=== PATIENT | male | born 1935 | race Caucasian/White ===

== ENCOUNTER 2019-11-17 04:07 | Inpatient (IN) | payer MEDICARE ==
[~2019-11-17] VITALS: Ht 190 cm; Wt 78.2 kg
[2019-11-17] VITALS (8 sets, daily range): BP systolic 170–195; BP diastolic 75–101
--- NOTE | 2019-11-17 05:00 | NUR ---
PT ARRIVED TO ICU 3. PT PUT ON MONITORS. DR DOBBINS NOTIFIED OF PT ARRIVAL. SEE ORDER HX
[2019-11-17] MEDS: NS IV 1000 ML 1,000 ML IV SCH ×2 (07:35→20:22)
--- NOTE | 2019-11-17 07:44 | NUR ---
DR RUIZ NOTIFIED OF CONSULT
--- NOTE | 2019-11-17 08:40 | Consultation-Cardiology ---
HPI-Cardiology Cardiology Consultation Date of Consultation 11/17/19 Date of Admission Time Seen by Provider: 08:36 Indication: Chest pain HPI 84 years old gentleman with history of paroxysmal atrial fibrillation, has been on sotalol at least since 2014. Has been having recurrent episodes of chest pain for the past 3-4 months, seen in the [facility] emergency room for at least 3 times, hospitalized once and monitored. No stress test or cardiac catheter was done. This time started to have more persistent chest pain. Seen in the emergency room and admitted. Feeling better at this time. had palpitation was in atrial fibrillation with rapid ventricular response. No syncope or near syncopal episodes Home Medications & Allergies Allergies: Coded Allergies: promethazine (Verified Allergy, Unknown, 11/17/19) Home Medication List Reviewed: Yes LDK-Iaajso-Syicch Hx Patient Social History Marital Status: Employed/Student: retired Recent Foreign Travel: No Recent Infectious Disease Expo: No Immunizations Up To Date Date of Influenza Vaccine: Jun 06, 2019 Past Medical History Discussed below Family Medical History Family Medical Hx Non contributory Review of Systems-General Review of Systems Constitutional: no symptoms reported, see HPI EENTM: see HPI, no symptoms reported Respiratory: no symptoms reported, see HPI Cardiovascular: see HPI, chest pain; No edema, No Hx of Intervention, No palpitations, No syncope, No vascular heart diseas, No other Gastrointestinal: no symptoms reported, see HPI Genitourinary: no symptoms reported, see HPI Musculoskeletal: no symptoms reported, see HPI Skin: no symptoms reported, see HPI Psychiatric/Neurological: No Symptoms Reported, See HPI Reviewed Test Results Reviewed Test Results Lab Laboratory Tests Test 11/17/19 06:40 Range/Units Troponin I 0.086 H <0.028 NG/ML Physical Exam Physical Exam Vital Signs Vital Signs - First Documented 11/17/19 11/17/19 04:50 05:02 Temp 36.0 Pulse 95 Resp 18 B/P (MAP) 183/101 (128) Pulse Ox 97 O2 Delivery Room Air Capillary Refill : Height, Weight, BMI Height: '" Weight: lbs. oz. kg; 21.46 BMI Method: General Appearance: No Apparent Distress, WD/WN Eyes: Bilateral Eye Normal Inspection, Bilateral Eye PERRL, Bilateral Eye EOMI HEENT: PERRL/EOMI, TMs Normal, Normal ENT Inspection, Pharynx Normal, Moist Mucous Membranes Neck: Full Range of Motion, Normal Inspection, Non Tender, Supple, Carotid Bruit Respiratory: Chest Non Tender, Normal Breath Sounds, No Accessory Muscle Use, No Respiratory Distress Cardiovascular: Regular Rate, Rhythm, No Edema, No Gallop, No JVD, No Murmur, Normal Peripheral Pulses, Gallop/S3 Gastrointestinal: Normal Bowel Sounds, No Organomegaly, No Pulsatile Mass, Non Tender, Soft Back: Normal Inspection, No CVA Tenderness, No Vertebral Tenderness Extremity: Normal Capillary Refill, Normal Inspection, Normal Range of Motion, Non Tender, No Calf Tenderness, No Pedal Edema Neurologic/Psychiatric: Alert, Oriented x3, No Motor/Sensory Deficits, Normal Mood/Affect Skin: Normal Color, Warm/Dry Lymphatic: No Adenopathy A/P-Cardiology Admission Diagnosis unstable angina Hypertension Paroxysmal atrial fibrillation Hyperlipidemia Assessment/Plan Unstable angina, mild elevation in troponin, patient is admitted and monitored, discussed management plan I'm planning to proceed with cardiac catheterization after holding metformin. Will consider the procedure tomorrow Paroxysmal atrial fibrillation maintained on sotalol, continue to monitor QT interval, currently back to sinus rhythm. Hypertension, poor control, restart sotalol and adjust his medication to achieve adequate blood pressure control Hyperlipidemia, monitor lipids Hypothyroidism Diabetes mellitus, hold metformin LUIS ALFREDO RUIZ MD Nov 17, 2019 08:40
[2019-11-17] MEDS ORDERED: FERR325T18 PO (09:04)
[2019-11-17] MEDS ORDERED: DIGO125T3 PO (09:04)
[2019-11-17] MEDS ORDERED: LEVO100T7 PO (09:04)
[2019-11-17] MEDS ORDERED: METF-399 PO (09:04)
[2019-11-17] MEDS ORDERED: LISI10TA2 PO (09:04)
[2019-11-17] MEDS ORDERED: POTA10TA36 PO (09:04)
[2019-11-17] MEDS ORDERED: OMEP20CA18 PO (09:04)
[2019-11-17] MEDS ORDERED: APIX2.5T PO (09:04)
[2019-11-17] MEDS ORDERED: MAGN400T39 PO (09:04)
[2019-11-17] MEDS ORDERED: ALEN70TA2 PO (09:04)
[2019-11-17] MEDS ORDERED: CALC-83 PO (09:04)
[2019-11-17] MEDS ORDERED: SOTA80TA62 PO (09:04)
[2019-11-17] MEDS: SOTALOL 80 MG (BETAPACE) TAB PO SCH ×2 (09:57→20:26)
[2019-11-17] MEDS: ASPIRIN E.C. 81 MG (ECOTRIN) TAB PO SCH (09:57)
[2019-11-17] MEDS ORDERED: LEVO125T6 PO (10:00)
[2019-11-17] MEDS ORDERED: LISI-552 PO (10:02)
--- NOTE | 2019-11-17 10:03 | NUR ---
SPOKE WITH THE PT AND HIS FAMILY (THE DAUGHTER HAD A MED LIST ON HER PHONE) AND CALLED [facility] AND [facility] TO COMPLETE THE MED REC. PT IS A RESIDENT OF [facility] IN [place] BUT HE IS IN THE ASSISTED FACILITY AND TAKES CARE OF HIS OWN MEDS. THE FOLLOWING ARE FILL DATES: 07-13-2019 DIGOXIN 125MCG #90/90DS 09-05-2019 OMEPRAZOLE 20MG #180/90DS 09-07-2019 ELIQUIS 5MG #180/90DS 09-18-2019 SOTALOL 80MG #180/90DS 10-02-2019 FOSAMAX 70MG #12/84DS 10-02-2019 METFORMIN 1000MG #90/90DS 10-17-2019 POTASSIUM 20MEQ #60/30DS 11-13-2019 LISINOPRIL 20MG #45/90DS 11-13-2019 LEVOTHYROXINE 125MCG #30/30DS OTC MEDS: IRON MAGNESIUM CALCIUM W/ VIT D
[2019-11-17] MEDS ORDERED: APIX5TAB PO (10:09)
[2019-11-17] MEDS ORDERED: NON-FORMULARY MEDICATION 1 EA EA (Alendronate Sodium (Fosamax) 70 MG) PO SCH (10:30)
[2019-11-17] MEDS ORDERED: ENOXAPARIN 40 MG/0.4 ML (LOVENOX) SYR SC ONE (10:45)
[2019-11-17] MEDS ORDERED: ONDANSETRON 4 MG (ZOFRAN) ORAL DISSOLVE TAB PO PRN (10:45)
[2019-11-17] MEDS ORDERED: MELATONIN 3 MG TABLET PO PRN (10:45)
[2019-11-17] MEDS ORDERED: polyethylene glycoL POWDER 17 GM (MIRALAX) PACK PO PRN (10:45)
[2019-11-17] MEDS ORDERED: BISACODYL 10 MG SUPP (DULCOLAX) PR PRN (10:45)
[2019-11-17] MEDS ORDERED: ONDANSETRON 4 MG/2 ML (SDV) Z0FRAN IV PRN (10:45)
--- NOTE | 2019-11-17 10:46 | History & Physical-Hospitalist ---
History of Present Illness HPI/Chief Complaint Clinton Guzmán is an 84-year-old male with past medical history of hypertension, hyperlipidemia, type II diabetes mellitus, hypothyroidism, GERD, osteoporosis, atrial fibrillation, who presented with chest pain. He reports that he has been having chest pain on and off for about a year. He reports that is is a pressure across his chest that feels like "bricks". He says that it is a dull pain. He denies any radiation of the pain to his neck, jaw, or arm. He denies any associated nausea or vomiting. He denies any associated diaphoresis. He denies any shortness of breath. He is currently chest pain-free. He denies any fevers or chills. He denies any cough. He denies any abdominal pain. He denies any diarrhea. He denies any rash. Source: patient Exam Limitations: no limitations Date Seen 11/17/19 Time Seen by a Provider: 09:25 Attending Physician Sherry Givens MD PCP Tutu Reese DO Referring Physician Date of Admission Nov 17, 2019 at 04:44 Home Medications & Allergies Home Medications Reviewed patient Home Medication Reconciliation performed by pharmacy medication reconciliations switch technician and/or nursing. Patients Allergies have been reviewed. Allergies Allergies Coded Allergies promethazine (Verified Allergy, Unknown, 11/17/19) Past Hvfhfqc-Lettvt-Vexxns Hx Past Med/Social Hx: Reviewed Nursing Past Med/Soc Hx Patient Social History Marrital Status: Employed/Student: retired Recent Foreign Travel: No Contact w/other who traveled: No Recent Infectious Disease Expo: No Immunizations Up To Date Date of Influenza Vaccine: Jun 06, 2019 Review of Systems Constitutional: no symptoms reported EENTM: no symptoms reported Respiratory: no symptoms reported Cardiovascular: chest pain Gastrointestinal: no symptoms reported Genitourinary: no symptoms reported Musculoskeletal: no symptoms reported Skin: no symptoms reported Psychiatric/Neurological: No Symptoms Reported Physical Exam Physical Exam Vital Signs Vital Signs - First Documented 11/17/19 11/17/19 04:50 05:02 Temp 36.0 Pulse 95 Resp 18 B/P (MAP) 183/101 (128) Pulse Ox 97 O2 Delivery Room Air Capillary Refill : Height, Weight, BMI Height: '" Weight: lbs. oz. kg; 21.46 BMI Method: General Appearance: No Apparent Distress, Chronically ill, Thin HEENT: PERRL/EOMI, Pharynx Normal Respiratory: Lungs Clear, Normal Breath Sounds, No Respiratory Distress Cardiovascular: Regular Rate, Rhythm, No Edema, No Murmur Gastrointestinal: Normal Bowel Sounds, Non Tender, Soft Extremity: Normal Inspection, Non Tender, No Pedal Edema Neurologic/Psychiatric: Alert, Oriented x3, No Motor/Sensory Deficits, Normal Mood/Affect Skin: Normal Color, Warm/Dry Results Results/Procedures Labs Patient resulted labs reviewed. Imaging: Reviewed Imaging Report Assessment/Plan Admission Diagnosis unstable angina Admission Status: Inpatient Order (span 2 midnights) Reason for Inpatient Admission: chest pain requiring further evaluation Assessment and Plan Unstable angina atrial fibrillation with rapid ventricular response troponin elevated Cardiology consulted, appreciate assistance likely left heart catheterization tomorrow Continue sotalol and digoxin Holding Eliquis echo ordered Continue aspirin type II diabetes mellitus Accu-Cheks before meals and at bedtime Hold metformin Sliding scale insulin Hyperlipidemia Continue statin Hypothyroidism Continue levothyroxine GERD Continue PPI DVT prophylaxis: Lovenox while Eliquis held Diagnosis/Problems Diagnosis/Problems (1) Unstable angina Status: Acute (2) Atrial fibrillation with rapid ventricular response Status: Acute (3) HTN (hypertension) Status: Chronic (4) HLD (hyperlipidemia) Status: Chronic (5) T2DM (type 2 diabetes mellitus) Status: Chronic (6) GERD (gastroesophageal reflux disease) Status: Chronic (7) Hypothyroidism Status: Chronic (8) Osteoporosis Status: Chronic (9) Living in assisted living Status: Chronic AMIRA SAAB MD Nov 17, 2019 10:46
[2019-11-17] MEDS: inSUlin ASPART (NovoLOG) 1 UNIT/0.01 ML (CHARGE PER UNIT) SC SCH ×3 (11:38→20:29)
--- NOTE | 2019-11-17 12:44 | Occupational Therapy Eval ---
OT Evaluation-General/PLF Medical Diagnosis Admission Date Nov 17, 2019 at 04:44 Medical Diagnosis: acute angina Onset Date: Nov 16, 2019 Therapy Diagnosis Therapy Diagnosis: Decreased ADL function Precautions Precautions/Isolations: Fall Prevention, Standard Precautions Safety Interventions: None Referral Physician: Bonnie Andrade MD Referral Reason: Activity Tolerance, Self Care, Evaluation/Treatment, Strengthening/ROM Medical History Pertinent Medical History: Atrial Fib, DM, GERD, HTN Current History Pt admits to ER with angina Reviewed History: Yes Social History Home: Assisted Living Current Living Status: Spouse Entry Into Home: Level Entry ADL-Prior Level of Function SCALE: Activities may be completed with or without assistive devices. 7-Btimhnxkxq-iiudabg completes the activity by him/herself with no assistance from a helper. 5-Set-up or Clean-up Assistance-helper sets up or cleans up; patient completes activity. [place] assists only prior to or following the activity. 4-Supervision or Touching Assistance-helper provides verbal cues and/or touching/steadying and/or contact guard assistance as patient completes activity. Assistance may be provided throughout the activity or intermittently. 3-Partial/Moderate Assistance-helper does LESS THAN HALF the effort. [place] lifts, holds or supports trunk or limbs, but provides less than half the effort. 2-Substantial/Maximal Assistance-helper does MORE THAN HALF the effort. [place] lifts or holds trunk or limbs and provides more than half the effort. 8-Ehqbyhxvs-bfufxo does ALL the effort. Patient does none of the effort to complete the activity. Or, the assistance of 2 or more helpers is required for the patient to complete the activity. If activity was not attempted, code reason: 7-Patient Refused. 9-Not Applicable-not attempted and the patient did not perform the activity before the current illness, exacerbation or injury. 10-Not Attempted due to Environmental Limitations-(lack of equipment, weather restraints, etc.). 88-Not Attempted due to Medical Conditions or Safety Concerns. ADL PLOF Comments Pt states IND within home, is also caregiver of and states receives outside assist with 's showers (from daughter) RETIREMENT assists in food management. Self Care: Independent Functional Cognition: Independent DME/Equipment: Grab Bars, Shower, Toilet/Riser DME/Equipment Comments 2WW, hip kit (previous hip fx) Drive Self: No OT Current Status Subjective Nursing states pt okay to get up / be seen by therapy. Pt seen in recliner, agrees to OT eval/ treat. Pt denies pain in chest. Pt's food comes in during session. Mental Status/Objective Patient Orientation: Person, Place, Time, Situation Attachments: Telemetry Current Glasses/Contacts: Yes Dentures/Partials: Yes Hand Dominance: Right Upper Extremity ROM WFL BUE Upper Extremity Coordination WFL BUE Upper Extremity Sensation WFL BUE Upper Extremity Strength decreased (4-/5) ADL-Treatment Eating (QC): 6 Oral Hygiene (QC): 7 Shower/Bathe Self (QC): 7 Upper Body Dressing (QC): 7 Lower Body Dressing (QC): 7 On/Off Footwear (QC): 7 Toileting Hygiene (QC): 7 Other Treatments Pt seen in recliner chair. Pt agrees to OT. Pt states he has procedure, does not know what type yet. Pt states med hx and support for . Pt states he broke hip from previous fall, able to don L sock with sock aide. Pt now ambulates with 2WW and states has not fallen since. Pt agrees he may be weaker than normal though ROM WFL. Pt's food placed in front of pt, eats without difficulties. OT role explained and goals of therapy. Pt left in room with call light in reach, all needs met. Education OT Patient Education: Correct positioning, Purpose of tx/functional activities, Rehab process Teaching Recipient: Patient Teaching Methods: Demonstration, Discussion Response to Teaching: Verbalize Understanding, Return Demonstration OT Senior Care Goals Lithographic Plate Maker Goals Time Frame: Nov 24, 2019 Eating (QC): 6 Oral Hygiene (QC): 6 Toileting Hygiene (QC): 6 Shower/Bathe Self (QC): 6 Upper Body Dressing (QC): 6 Lower Body Dressing (QC): 6 On/Off Footwear (QC): 6 Additional Goals: 1-Demonstrate ADL Tasks, 2-Verbalize Understanding, 3-ImproveStrength/Keny 1=Demonstrate adherence to instructed precautions during ADL tasks. 2=Patient will verbalize/demonstrate understanding of assistive devices/modifications for ADL. 3=Patient will improve strength/tolerance for activity to enable patient to perform ADL's. OT Education/Plan Problem List/Assessment Assessment: Decreased Activ Tolerance, Decreased UE Strength, Impaired Funct Balance, Impaired I ADL's, Impaired Self-Care Skills Discharge Recommendations Plan/Recommendations: Continue POC Therapy Discharge Recommendati: Assisted Living, Post Acute OT Treatment Plan/Plan of Care Treatment,Training & Education: Yes Patient would benefit from OT for education, treatment and training to promote independence in ADL's, mobility, safety and/or upper extremity function for ADL's. Plan of Care: ADL Retraining, Functional Mobility, UE Funct Exercise/Act Treatment Duration: Nov 24, 2019 Frequency: 5 times per week Estimated Hrs Per Day: .25 hour per day Agreement: Yes Rehab Potential: Good Time/GCodes Start Time: 11:55 Stop Time: 12:04 Total Time Billed (hr/min): 9 Billed Treatment Time 1, EVL (9) TAMIE MICHEL OTR Nov 17, 2019 12:44
--- NOTE | 2019-11-17 15:19 | Physical Therapy Evaluation ---
PT Evaluation-General Medical Diagnosis Admission Date Nov 17, 2019 at 04:44 Medical Diagnosis: acute angina Onset Date: Nov 16, 2019 Therapy Diagnosis Therapy Diagnosis: debility Precautions Precautions/Isolations: Fall Prevention, Standard Precautions Weight Bear Status Right Lower Extremity: Right Weight Bearing/Tolerated Left Lower Extremity: Left Weight Bearing/Tolerated Referral Physician: Bonnie Andrade MD Reason for Referral: Evaluation/Treatment Medical History Pertinent Medical History: Atrial Fib, DM, GERD, HTN, Hypothroidism Current History admitted due to CP Reviewed History: Yes Social History Home: Assisted Living Current Living Status: Spouse Entry Into Home: Level Entry Prior Prior Level of Function SCALE: Activities may be completed with or without assistive devices. 2-Dvpvznqpsx-ksdyulm completes the activity by him/herself with no assistance from a helper. 5-Set-up or Clean-up Assistance-helper sets up or cleans up; patient completes activity. [place] assists only prior to or following the activity. 4-Supervision or Touching Assistance-helper provides verbal cues and/or touching/steadying and/or contact guard assistance as patient completes activity. Assistance may be provided throughout the activity or intermittently. 3-Partial/Moderate Assistance-helper does LESS THAN HALF the effort. [place] lifts, holds or supports trunk or limbs, but provides less than half the effort. 2-Substantial/Maximal Assistance-helper does MORE THAN HALF the effort. [place] lifts or holds trunk or limbs and provides more than half the effort. 1-Fcwatvzhl-mzrkmp does ALL the effort. Patient does none of the effort to complete the activity. Or, the assistance of 2 or more helpers is required for the patient to complete the activity. If activity was not attempted, code reason: 7-Patient Refused. 9-Not Applicable-not attempted and the patient did not perform the activity before the current illness, exacerbation or injury. 10-Not Attempted due to Environmental Limitations-(lack of equipment, weather restraints, etc.). 88-Not Attempted due to Medical Conditions or Safety Concerns. Bed Mobility: 6 Transfers (B,C,W/C): 6 Gait: 6 Indoor Mobility (Ambulation): Independent Stairs: Not Applicalbe Prior Devices Use: Walker PT Evaluation-Current Subjective Patient is very agreeable to participate with PT. Pain Numeric Pain Scale: 0-No Pain Location: No Pain Reported Objective Patient Orientation: Normal For Age ROM/Strength ROM Lower Extremities bilateral LE WFL Strength Lower Extremities 4/5 grossly bilateral LE Integumentary/Posture Integumentary refer to nursing notes Bowel Incontinence: No Bladder Incontinence: No Posture kyphotic Neuromuscular (Tone, Coordination, Reflexes) grossly intact Sensory Vision: Wears Glasses Hearing: Impaired Hand Dominance: Right Sensation Right Lower Extremit: Intact Sensation Left Lower Extremity: Intact Transfers Roll Left to Right (QC): 5 Sit to Lying (QC): 5 Lying to Sitting/Side of Bed(Q: 5 Sit to Stand (QC): 5 Chair/Wuh-lv-Xpyic Xfer(QC): 5 Gait Does the Patient Walk?: Yes Mode of Locomotion: Walk Anticipated Mode of Locomotion: Walk Walk 10 feet (QC): 5 Walk 50 ft with 2 Turns(QC): 5 Walk 150 ft (QC): 5 Distance: 250' Gait Assistive Device: FWW Comments/Gait Description slow, steady, functional gait sequence Balance Sitting Static: Normal Sitting Dynamic: Normal Standing Static: Normal Standing Dynamic: Normal Assessment/Needs 84 y.o. male, will be seen short by skilled PT to address functional mobility to ensure safe return to [place] at maximum LOF. Rehab Potential: Fair PT Civil Cad Designer Goals Prison Goals PT Prison Goals Time Frame: Nov 24, 2019 Roll Left & Right (QC): 6 Sit to Lying (QC): 6 Lying-Sitting on Side/Bed(QC): 6 Sit to Stand (QC): 6 Chair/Rjr-vh-Phxaf Xfer(QC): 6 Toilet Transfer (QC): 6 Does the Patient Walk: Yes Walk 10 feet (QC): 6 Walk 50ft with 2 Turns (QC): 6 Walk 150 ft (QC): 6 PT Plan Problem List Problem List: Activity Tolerance Treatment/Plan Treatment Plan: Continue Plan of Care Treatment Plan: Education, Functional Activity Keny, Functional Strength, Gait, Therapeutic Exercise Treatment Duration: Nov 24, 2019 Frequency: 6 times per week Estimated Hrs Per Day: .25 hour per day Time/GCodes Time In: 1450 Time Out: 1502 Total Billed Treatment Time: 12 Total Billed Treatment 1 visit EVModC 12 min PEDRITO PAZ PT Nov 17, 2019 15:19
[2019-11-17] MEDS ORDERED: lisINopril 10 MG (PRINIVIL) TABLET PO NR (15:45)
--- NOTE | 2019-11-17 15:55 | NUR ---
DR HENSON NOTIFIED OF PT'S ELEVATED BLOOD PRESSURE NEW ORDERS PLACED BY DR HENSON.
--- NOTE | 2019-11-17 16:03 | NUR ---
Pt is Nazarene. Very yazidism. Enjoyed talking about his life and career. Also enjoyed sharing his therese and prayer. Dtr present.
[2019-11-17] MEDS: KCL 10 MEQ TAB (MICRO K) PO SCH (17:03)
[2019-11-17] MEDS: MAGNESIUM OXIDE (MAG-OX)400 MG TAB PO SCH (17:03)
[2019-11-17] MEDS: PANTOPRAZOLE 20 MG TABLET (PROTONIX) PO SCH (20:26)
[2019-11-18] VITALS (7 sets, daily range): BP systolic 177–192; BP diastolic 69–89
[2019-11-18 03:29] LABS: HEMOGLOBIN 10.8 G/DL (13.3-17.7); MEAN PLATELET VOLUME 10.1 FL (7.4-10.4); RED CELL DISTRIBUTION WIDTH 13.8 % (10.0-14.5); WHITE BLOOD COUNT 5.4 10^3/uL (4.3-11.0)
[2019-11-18 03:40] LABS: INR 1.2 (0.8-1.4); PROTHROMBIN TIME PATIENT 15.8 SEC (12.2-14.7)
[2019-11-18 03:48] LABS: ALANINE AMINOTRANSFERASE 9 U/L (0-55); ALBUMIN 2.9 GM/DL (3.2-4.5); ALKALINE PHOSPHATASE 77 U/L (40-136); BILIRUBIN,TOTAL 0.5 MG/DL (0.1-1.0); BUN/CREATININE RATIO 11; CARBON DIOXIDE 24 MMOL/L (21-32); CHLORIDE 108 MMOL/L (98-107); CREATININE SERUM 0.72 MG/DL (0.60-1.30); GFR ESTIMATED > 60; GLUCOSE 140 MG/DL (70-105); POTASSIUM 3.8 MMOL/L (3.6-5.0); SODIUM 138 MMOL/L (135-145); TOTAL PROTEIN 4.6 GM/DL (6.4-8.2)
[2019-11-18] MEDS: inSUlin ASPART (NovoLOG) 1 UNIT/0.01 ML (CHARGE PER UNIT) SC SCH (05:08)
[2019-11-18] MEDS ORDERED: LEVOTHYROXINE 125 MCG (LEVOTHROID) TABLET PO SCH (06:30)
[2019-11-18] MEDS: PANTOPRAZOLE 20 MG TABLET (PROTONIX) PO SCH (08:10)
[2019-11-18] MEDS: ASPIRIN E.C. 81 MG (ECOTRIN) TAB PO SCH (08:10)
[2019-11-18] MEDS: KCL 10 MEQ TAB (MICRO K) PO SCH (08:10)
[2019-11-18] MEDS: MAGNESIUM OXIDE (MAG-OX)400 MG TAB PO SCH (08:10)
[2019-11-18] MEDS: SOTALOL 80 MG (BETAPACE) TAB PO SCH (08:10)
[2019-11-18] MEDS ORDERED: fentaNYL INJECTION 100 MCG/2 ML AMP ONE (08:18)
[2019-11-18] MEDS ORDERED: HEParin (CATH LAB) 2,000 ML IV ONE (08:18)
[2019-11-18] MEDS ORDERED: LIDOCAINE 1% INJ 20 ML 20 ML VIAL ONE (08:18)
[2019-11-18] MEDS ORDERED: MIDAZOLAM 5 MG/5 ML (VERSED) VIAL ONE (08:18)
--- NOTE | 2019-11-18 08:47 | Cardiac Procedure Note-CS/ASA ---
Pre-Procedure Note Pre-Op Procedure Note H&P Reviewed The H&P was reviewed, patient examined and no changes noted. Date H&P Reviewed: Nov 18, 2019 Time H&P Reviewed: 08:47 Conscious Sedation Pre-Proced Time 08:47 ASA Score 3 For ASA 3 and 4: Consider anesthesia and medical clearance. Also, for patients with a history of failed moderate sedation consider anesthesia. Airway Lungs Heart ASA score ASA 1: a normal healthy patient ASA 2: a patient with a mild systemic disease (mid diabetes, controlled hypertension, obesity X ASA 3: a patient with a severe systemic disease that limits activity (angina, COPD, prior Myocardial infarction) ASA 4: a patient with an incapacitating disease that is a constant threat to life (CHF, renal failure) ASA 5: a moribund patient not expected to survive 24 hrs. (ruptured aneurysm) ASA 6: a declared brain- patient whose organs are being harvested. For emergent operations, add the letter E after the classification Mallampati Classification Grade 3 Sedation Plan Analgesia, Amnesia, Plan communicated to team members, Discussed options with patient/fam, Discussed risks with patient/fam The patient is an appropriate candidate to undergo the planned procedure, sedation, and anesthesia. The patient immediately re-assessed prior to indication. LUIS ALFREDO RUIZ MD Nov 18, 2019 08:47
[2019-11-18] MEDS ORDERED: FERROUS SULF 325 MG (IRON) TAB PO SCH (09:00)
[2019-11-18] MEDS ORDERED: lisINopril 10 MG (PRINIVIL) TABLET PO SCH (09:00)
[2019-11-18] MEDS ORDERED: DIGOXIN 0.125 MG (LANOXIN) TAB PO SCH (09:00)
[2019-11-18] MEDS ORDERED: HEParin 1000 UNIT/ML (10ML VIAL) FOR BOLUS ONE (09:14)
[2019-11-18] MEDS ORDERED: NITRO DRIP 25000 MCG/D5W 0 ML IV ONE (09:14)
[2019-11-18] MEDS ORDERED: NS IV 1000 ML 1,000 ML IV SCH (09:28)
[2019-11-18] MEDS ORDERED: PATIENT MAY USE OWN MEDS, ALL PO SCH (09:30)
--- NOTE | 2019-11-18 09:37 | Cardiac Cath Report ---
Cardiac Cath Report Physician (s)/City Magistrate (s) Physician LUIS ALFREDO RUIZ MD Pre-Procedure Diagnosis Pre-Procedure Diagnosis: Coronary artery disease Post-Procedure Note Procedure Start Date: Nov 18, 2019 Name of Procedure: Left heart catheterization Findings/Procedure Note PROCEDURE NOTE: 84 years old gentleman with history of atrial fibrillation, hypertension, admitted with unstable angina, non-ST elevation GA. Scheduled for cardiac catheterization. After explaining the procedure to the patient, all pros and cons were explained, all questions were answered. The patient signed the consent and then he was placed on the cardiac catheterization laboratory. Groin was prepped SL fashion local anesthesia was used. Sheath placed in the right femoral artery. [place] right and left catheter were used to access the coronary system. Pigtail was used to access the left ventricular cavity. Left ventriculogram was done Aortic arch angiogram was not done At the end of the procedure the sheath was removed. Closure device was used FINDINGS: Hemodynamics LV 185/21, end-diastolic pressure of 21 Aorta 185/54 mean of 103 ANATOMY: Left Main is heavily calcified with 50 percent ostial stenosis Left Anterior Descending is heavily calcified artery with multiple segment of severe stenosis of the proximal and midportion is dominant artery with mild disease Left Circumflex Right Coronory Artery is nondominant artery large artery with subtotal occlusion distally, moderate to severe stenosis proximally LV Gram was done showing prominent left ventricle with reduced systolic function estimated ejection fraction 35-40 percent CONCLUSION: 1. Severe multivessel coronary artery disease with 2 segment of severe stenosis in the proximal and mid LAD, proximal and distal right coronary artery 2. 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 Dilated left ventricle with diffuse left ventricular hypokinesia, estimated ejection fraction 30 percent DISCUSSION AND RECOMMENDATION: Will arrange for transfer for high risk intervention versus bypass Anesthesia Type: Conscious Sedation Estimated blood loss (mL): 25 ml48 ml Contrast Amount: 393 mgy Post-Procedure Diagnosis Post-operative diagnosis: Unstable angina Coronary artery disease Congestive heart failure, chronic compensated left ventricular systolic dysfunction, ischemic cardiomyopathy Atrial fibrillation Hypertension (1) Unstable angina (2) Atrial fibrillation with rapid ventricular response (3) HTN (hypertension) (4) HLD (hyperlipidemia) (5) T2DM (type 2 diabetes mellitus) (6) GERD (gastroesophageal reflux disease) (7) Hypothyroidism (8) Osteoporosis (9) Living in assisted living LUIS ALFREDO RUIZ MD Nov 18, 2019 09:37
--- NOTE | 2019-11-18 09:46 | Cardiology Discharge Summary ---
Discharge Summary Hospital Course Problems Reviewed?: Yes Hospital Course Date of Admission: Nov 17, 2019 at 04:44 Admission Diagnosis : Family Physician/Provider: Tutu Reese DO Date of Discharge: 11/18/19 Discharge Diagnosis: [ Non-ST elevation myocardial infarction Coronary artery disease Congestive heart failure, chronic compensated left ventricular systolic dysfunction, ischemic cardiomyopathy Paroxysmal atrial fibrillation Hypertension Hyperlipidemia Diabetes mellitus] Hospital Course: [ Unstable angina, non-ST elevation myocardial infarction, mild elevation in troponin level, cardiac catheterization was done. Next Coronary artery disease, cardiac catheterization done on November 18, 2019 showing severe stenosis with heavily calcified LAD at 2 segment, severe stenosis at the distal right coronary artery moderate severe stenosis of the proximal right coronary artery, heavily calcified left main with ostial 50 percent stenosis and aneurysmal dilatation. We'll arrange for transfer for evaluation for possible CABG versus high risk intervention Congestive heart failure, chronic compensated left ventricular systolic dysfunction, ejection fraction 35 percent, maintained on sotalol, add lisinopril and monitor Paroxysmal atrial fibrillation maintained on sotalol, continue to monitor QT interval, currently back to sinus rhythm. [id number] blast score of 6, yearly risk of stroke without oral anticoagulation is 9.8 percent. Maintained on Eliquis, currently on hold. Hypertension, poor control, add lisinopril and monitor Hyperlipidemia, monitor lipids Hypothyroidism Diabetes mellitus, hold metformin] Labs and Pending Lab Test: Laboratory Tests 11/17/19 11:15: Glucometer 231H 11/17/19 16:04: Glucometer 136H 11/17/19 20:20: Glucometer 157H 11/18/19 02:54: White Blood Count 5.4, Red Blood Count 3.50L, Hemoglobin 10.8L, Hematocrit 33L, Mean Corpuscular Volume 95, Mean Corpuscular Hemoglobin 31, Mean Corpuscular Hemoglobin Concent 32, Red Cell Distribution Width 13.8, Platelet Count 234, Mean Platelet Volume 10.1, Prothrombin Time 15.8H, INR Comment 1.2, Activated Partial Thromboplast Time 30, Sodium Level 138, Potassium Level 3.8, Chloride Level 108H, Carbon Dioxide Level 24, Anion Gap 6, Blood Urea Nitrogen 8, Creatin ine 0.72, Estimat Glomerular Filtration Rate > 60, BUN/Creatinine Ratio 11, Glucose Level 140H, Calcium Level 8.0L, Corrected Calcium 8.9, Total Bilirubin 0.5, Aspartate Amino Transf (AST/SGOT) 14, Alanine Aminotransferase (ALT/SGPT) 9, Alkaline Phosphatase 77, Troponin I 0.121H, Total Protein 4.6L, Albumin 2.9L Home Meds Active Reported Eliquis (Apixaban) 5 Mg Tablet 5 Mg PO BID Lisinopril 20 Mg Tablet 10 Mg PO DAILY TAKES OF A 20MG TO EQUAL 10MG DAILY Levothyroxine Sodium 125 Mcg Tablet 125 Mcg PO DAILY Sotalol (Sotalol HCl) 80 Mg Tablet 80 Mg PO Q12H Potassium Chloride 10 Meq Tab.er.prt 10 Meq PO BID Omeprazole 20 Mg Capsule.dr 20 Mg PO BID Metformin HCl 1,000 Mg Tablet 1,000 Mg PO DAILYW/FOOD Magnesium (Magnesium Oxide) 400 Mg Tablet 400 Mg PO BID Ferrous Sulfate 325 Mg Tablet 325 Mg PO DAILY Digoxin 125 Mcg Tablet 125 Mcg PO MON,WED,WED Calcium 600+D Plus Minerals Tb (Calcium Carb/Vit D3/Minerals) 1 Each Tablet 1 Each PO DAILY Fosamax (Alendronate Sodium) 70 Mg Tablet 70 Mg PO WED Assessment/Pt DC Instructions Patient will be transferred to [facility] Activity as Tolerated: Yes Discharge Physical Examination Allergies: Coded Allergies: promethazine (Verified Allergy, Unknown, 11/17/19) General Appearance: No No Apparent Distress, No WD/WN, No Anxious, No Chronically ill, No Cachetic, No Mild Distress, No Moderate Distress, No Obese, No Severe Distress, No Thin, No Other HEENT: No PERRL/EOMI, No TMs Normal, No Normal ENT Inspection, No Pharynx Normal, No Moist Mucous Membranes, No Pale Conjunctivae (L), No Pale Conjunctivae (R), No Pharyngeal Erythema, No Photophobia, No Scleral Icterus (L), No Scleral Icterus (R), No TM Abnormal (L), No TM Abnormal (R), No Tonsillar Exudate, No Tonsillar Enlargement, No Other Respiratory: No Chest Non Tender, No Lungs Clear, No Normal Breath Sounds, No No Accessory Muscle Use, No No Respiratory Distress, No Accessory Muscle Use, No Crackles, No Decreased Breath Sounds, No Expiration, No Inspiration, No Pleural Rub, No Rales, No Respiratory Distress, No Rhonci, No Stridor, No Wheezing, No Other Cardiovascular: No Edema, No Gallop, No JVD, Diastolic Murmur, Irregularly Irregular Gastrointestinal: Normal Bowel Sounds, No Pulsatile Mass Extremity: Normal Capillary Refill, Normal Range of Motion Skin: Normal Color, Warm/Dry Neurologic/Psychiatric: Alert, Oriented x3, No Motor/Sensory Deficits, Normal Mood/Affect, hat brim curler II-XII Norm as Tested Clinical Quality Measures Admission Status Admission Dx Non-ST elevation myocardial infarction Admission Status: Inpatient Order (span 2 midnights) Reason for Inpatient Admission: Non-ST elevation myocardial infarction Paroxysmal atrial fibrillation AMI/AHF: Ejection Fraction: <40 (GIGI/ARB Indicated) D/C Medications Addressed: Gigi inhibitors, Beta alphonso LUIS ALFREDO RUIZ MD Nov 18, 2019 09:44
--- NOTE | 2019-11-18 11:45 | NUR ---
PT TRANSFERRED TO [facility] PER CART. PT AND FAMILY AWARE OF TRANSFER. REPORT CALLED TO MULUGETA DOE AT [facility], PT PERSONAL BELONGINGS SENT WITH PT FAMILY.
--- OUTSIDE RECORDS SUMMARY | 2019-11-18 22:27 | XMS REPORT | Summary of Care ---
Author Author Meeta Ulloa M.D. Organization Unknown Address [address] [place] [phone] Phone Unavailable Care Team Providers Care Retail Cosmetics Sales Counter Manager Name Role Phone Merlyn Ulloa M.D. Unavailable Unavailable Mariama Brandt M.D. Unavailable Unavailable Oksana Ulloa Unavailable Unavailable Unavailable Unavailable Functional Status Name Dates Details Functional status health issues are not documented Status: Name Dates Details Cognitive status health issues are not d ocumented Status: Problems Name Dates Details Vitamin D deficiency (268.9, E55.9) Status: Active SOB (shortness of breath) (786.05, R06.0 2) Status: Active Potassium deficiency (276.8, E87.6) Status: Active Dilated aortic root (447.71, I77.810) Status: Active Iron deficiency (280.9, E61.1) Status: Active Cutaneous horn (702.8, L85.8) Status: Active Anxiety (300.00, F41.9) Status: Active Diabetes mellitus type 2, controlled (25 0.00, E11.9) Status: Active Hypertension (401.9, I10) Status: Active Hypothyroidism (244.9, E03.9) Status: Active PAF (paroxysmal atrial fibrillation) (42 7.31, I48.0) Status: Active 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 Quantity: 14 Merlyn Ulloa M.D. * Start : 03-Jul-2013 Active Lisinopril 10 MG Oral Tablet TAKE 1 TABLET DAILY. * Quantity: 30 Refills: 11 Merlyn Ulloa M.D. * Start : 03-Jul-2013 Active Potassium Chloride ER 10 MEQ Oral Tablet Extended Release take two tablets daily * Refills: 0 * Start : 24-Feb-2016 Active Magnesium Oxide 400 MG Oral Tablet Take 2 tablets three times daily. * Quantity: 180 Refills: 2 Artemio Salazar, Merlyn * Start : 31-Oct-2015 Active Eliquis 5 MG Oral Tablet Take twice daily * Quantity: 60 Refills: 3 Rikki Salazar, T. K. * Start : 04-Apr-2015 Active Sotalol HCl - 80 MG Oral Tablet TAKE 1 TABLET EVERY 12 HOURS DAILY. * Refills: 0 Rikki Salazar, T. K. * Start : 22-Mar-2015 Active Ferrous Sulfate 325 (65 Fe) MG Oral Tablet TAKE 1 TABLET DAILY DIRECTED. * Refills: 0 * Start : 03-Jul-2013 Active metFORMIN HCl - 1000 MG Oral Tablet TAKE 1 TABLET DAILY WITH FOOD. * Refills: 0 Rikki Salazar, T. K. * Start : 03-Jul-2013 Active Calcium Carbonate-Vitamin D 500-400 MG-UNIT Oral Tablet Take as directed * Refills: 0 * Start : 03-Jul-2013 Active Omeprazole 20 MG Oral Capsule Delayed Release TAKE 1 CAPSULE DAILY EVERY MORNING BEFORE BREAKFAST. * Quantity: 30 Refills: 3 Artemio Salazar Merlyn * Start : 03-Jul-2013 Active Levothyroxine Sodium 100 MCG Oral Tablet TAKE 1 TABLET DAILY DIRECTED. * Refills: 0 Rikki Salazar, T. K. * Start : 03-Jul-2013 Active Alendronate Sodium 70 MG Oral Tablet TAKE 1 TABLET ONCE WEEKLY ON WED * Refills: 0 * Start : 03-Jul-2013 Active Test Strips Accu-Chek Jacquie Plus Strips - check daily * Quantity: 100 Refills: 4 Artemio Salazar Merlyn * Start : 28-May-2016 Active Digoxin 125 MCG Oral Tablet TAKE 1 TABLET DAILY. * Quantity: 90 Refills: 3 Artemio Salazar, Merlyn * Start : 13-Jul-2019 Active Medications Administered Name Dates Details Medication Administration not documented Allergies and Adverse Reactions Name Dates Details No Known Drug Allergies (Allergy) Status : Active Past Medical History Name Dates Details Compression fracture (829.0) Status: Auto Complete Congestion of nasal sinus (478.19, R09.8 1) Status: Auto Complete Head congestion (478.19, R09.81) Status: Auto Complete L1 vertebral fracture (805.4, S32.019A) Status: Auto Complete Low back pain (724.2, M54.5) Status: Auto Complete Magnesium deficiency (275.2, E61.2) Status: Auto Complete Nausea with vomiting (787.01, R11.2) Status: Auto Complete Productive cough (786.2, R05) Status: Auto Complete Scalp lesion (709.9, L98.9) Status: Auto Complete Sinus pressure (478.19, J34.89) Status: Auto Complete Weak (780.79, R53.1) Status: Auto Complete History of Diabetes mellitus type 2, con trolled, without complications (250.00, E11.9) Status: Resolved History of gastroesophageal reflux (GERD ) (V12.79, Z87.19) Status: Resolved History of malignant carcinoid tumor (V1 0.91, 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) Status: Resolved 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, Z85.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: Resolved History of osteoporosis (V13.59, Z87.39) Status: Resolved History of Pain of left heel (729.5, M79 .672) Status: Resolved Procedures Procedure Dates Details History of Small Bowel Resection Complet ed 14-Aug-2011 History of Abdominal Lymphadenectomy Com pleted 14-Aug-2011 History of Upr GI Endosc W/ Balloon Dilation Of Esoph (Less Than 30 Mm) Completed 14-Aug-2011 History of Shoulder Surgery Completed History of Cholecystectomy Completed History of Surgery Of Esophagus Complete d History of Cataract Surgery Completed History of Gastric Surgery Completed History of Elbow Surgery Completed History of Orchiectomy Right Completed 2 History of Inguinal Hernia Repair Comple hoang 26-Jul-2013 History of Inguinal Hernia Repair For Person Over Age 5 Completed 26-Jul-2013 History of Prostate Surgery Completed History of Esophageal Surgery Repair Com pleted History of Lithotripsy Bladder Completed History of Cataract Extraction Completed Immunization Name Dates Details Diphtheria-Tetanus Toxoids 6.7-5 LFU/0.5 ML INJ on: 26-Jul-2014 Prevnar 13 Intramuscular Suspension Lot #: [id number] on: 26-Jul-2014 Pneumovax 23 25 MCG/0.5ML Injection Inje ctable Lot #: [id number] on: 29-Aug-2018 Family History Name Dates Details Family history of Cancer Comments: Family History Status: Active Family history of Hypertension (V17.49) Comments: Family History Status: Active Family history of Diabetes Mellitus (V18 .0) Comments: Family History Status: Active Social History Name Dates Details - Status: Name Dates Details Never smoker Vital Signs Date Test Result Details [id number]:26 BP Systolic 128 mm[Hg] Status: BP Diastolic 58 mm[Hg] Status: Body Mass Index Calculated 23.12 kg/m2 Status: Weight 185 lb Status: Body Surface Area Calculated 2.12 m2 Status: O2 SAT 97 % Status: Respiration Rate 18 /min Status: Heart Rate 60 /min Status: Results Date Description Value Details Results not documented Plan of Care Name Dates Details Planned Observations Planned Goals not documented Planned Encounters Appointment; Mariama Brandt M.D. On: 20-Jul-2019 13:00 Instructions Name Dates Details Instructions not documented Encounters Appointment; Merlyn Ulloa M.D. Encounter Diagnosis: Problem not documented On: 20-Jul-2019 11:15 Payers * Medicare Part B - [place] * Bs/PLAN 65 4 * Medicare 97
--- OUTSIDE RECORDS SUMMARY | 2019-11-18 22:27 | XMS REPORT | Summary of Care ---
Author Meeta Oviedo M.D. Organization Unknown Address [address] [place] [phone] Phone Unavailable Care Team Providers Care Director Of Digital Marketing Name Role Phone Merlyn Ulloa M.D. Unavailable Unavailable Mariama Brandt M.D. Unavailable Unavailable Oksana Ulloa Unavailable Unavailable Unavailable Unavailable Reason for Visit * Health Issues Reviewed: * Hypertension * Dilated aortic root * PAF (paroxysmal atrial fibrillation) * Hypertension associated with diabetes Functional Status Name Dates Details Functional status health issues are not documented Status: Name Dates Details Cognitive status health issues are not d ocumented Status: Problems Name Dates Details Vitamin D deficiency (268.9, E55.9) Status: Active SOB (shortness of breath) (786.05, R06.0 2) Status: Active Potassium deficiency (276.8, E87.6) Status: Active Iron deficiency (280.9, E61.1) Status: Active Cutaneous horn (702.8, L85.8) Status: Active Anxiety (300.00, F41.9) Status: Active Diabetes mellitus type 2, controlled (25 0.00, E11.9) Status: Active Hypothyroidism (244.9, E03.9) Status: Active 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, C7A.8) Status: Active Seborrheic keratosis (702.19, L82.1) Status: Active 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 * Refills: 0 Rikki Salazar, T. K. * Start : 03-Jul-2013 Active Omeprazole 20 MG Oral Capsule Delayed Release TAKE 1 CAPSULE DAILY EVERY MORNING BEFORE BREAKFAST. * Quantity: 30 Refills: 3 Ulloa M.D., Merlyn * Start : 03-Jul-2013 Active Bicalutamide 50 MG Oral Tablet TAKE 1 TABLET DAILY. * Quantity: 14 Refills: 0 Artemio Dickson.D., Merlyn * Start : 03-Jul-2013 Active Calcium Carbonate-Vitamin D 500-400 MG-UNIT Oral Tablet Take as directed * Refills: 0 * Start : 03-Jul-2013 Active metFORMIN HCl - 1000 MG Oral Tablet TAKE 1 TABLET DAILY WITH FOOD. * Refills: 0 Rikki Salazar, T. K. * Start : 03-Jul-2013 Active Lisinopril 10 MG Oral Tablet TAKE 1 TABLET DAILY. * Quantity: 30 Refills: 11 Artemio Dickson.D., Merlyn * Start : 03-Jul-2013 Active Ferrous Sulfate 325 (65 Fe) MG Oral Tablet TAKE 1 TABLET DAILY DIRECTED. * Refills: 0 * Start : 03-Jul-2013 Active Sotalol HCl - 80 MG Oral Tablet TAKE 1 TABLET EVERY 12 HOURS DAILY. * Refills: 0 Rikki Salazar, T. K. * Start : 22-Mar-2015 Active Eliquis 2.5 MG Oral Tablet Take one tablet by mouth twice a day * Quantity: 60 Refills: 0 Rikki Salazar, T. K. * Start : 04-Apr-2015 Active Potassium Chloride ER 10 MEQ Oral Tablet Extended Release take two tablets daily * Refills: 0 * Start : 30-Oct-2015 Active Magnesium Oxide 400 MG Oral Tablet Take 2 tablets three times daily. * Quantity: 180 Refills: 2 Ulloa M.D., Merlyn * Start : 31-Oct-2015 Active Test Strips Accu-Chek Jacquie Plus Strips - check daily * Quantity: 100 Refills: 4 Ulloa M.D., Merlyn * Start : 28-May-2016 Active Digoxin 125 MCG Oral Tablet take 1 tablet mon, wed, fri * Quantity: 90 Refills: 3 Ulloa M.D., Merlyn * Start : 13-Jul-2019 Active Medications [...] .672) Status: Resolved Procedures Procedure Dates Details Echo Date: 20-Jul-2019 CP Echo Date: 20-Jul-2019 History of Small Bowel Resection Complet ed [...] 26-Jul-2014 Prevnar 13 Intramuscular Suspension Lot #: [id number] on: 26-Jul-2014 Pneumovax 23 25 MCG/0.5ML Injection Inje ctable Lot #: [id number] on: 29-Aug-2018 Family History Name Dates Details Family history of Cancer Comments: Family History Status: Active Family history of Hypertension (V17.49) Comments: Family History Status: Active Family history of Diabetes Mellitus (V18 .0) Comments: Family History Status: Active Social History Name Dates Details - Status: Name Dates Details Never smoker Vital Signs Date Test Result Details [id number] BP Systolic 144 mm[Hg] Status: BP Diastolic 60 mm[Hg] Status: Weight 184 lb Status: Body Mass Index Calculated 23 kg/m2 Status: Body Surface Area Calculated 2.12 m2 Status: Heart Rate 61 /min Status: O2 SAT 91 % Status: 84-[id number]:26 BP Systolic 128 mm[Hg] Status: BP Diastolic 58 mm[Hg] Status: Weight 185 lb Status: Body Mass Index Calculated 23.12 kg/m2 Status: Body Surface Area Calculated 2.12 m2 Status: Heart Rate 60 /min Status: O2 SAT 97 % Status: Respiration Rate 18 /min Status: Results Date Description Value Details [id number] ECG/ EKG (Specialists) Electro Card[facility]Gram [facility] Test Date: [id number] Name: Meeta GUZMÁN Department: Room: Gender: Male Benefits Officer: VRDOB: 1935 Requested By: Order Number: Reading MD: Jasbir Brandt MD MeasurementsIntervals [place] Rate: 55 P: 45PR: 329 QRS: 19QRSD: 83 T: 60QT: 457 QTc: 439 Interpretive StatementsSINUS BRADYCARDIA WITH FIRST DEGREE AV BLOCK PVCsElectronically Signed On 07-20-2019 13:26:47 CHART COLLECTOR by Jasbir Brandt MD [id number] CP Echo Y Linked PDF Report Av ailable for Review by Clicking Imagelink Button Plan of Care Name Dates Details Planned Observations Planned Goals not documented Interventions Provided Medication Changes* Digoxin 125 MCG Oral Tablet - Renew Labs/Procedures/Imaging* ECG/ EKG (Specialists); Done: 20 Jul 2019 Instructions Name Dates Details Instructions not documented Encounters Appointment; Merlyn Ulloa M.D. Encounter Diagnosis: Problem not documented On: 20-Jul-2019 11:15 Appointment; Mariama Brandt M.D. Encounter Diagnosis: PAF (paroxysmal atrial fibrillation), Dilated aortic root, Hypertension associated with diabetes, Hypertension On: 20-Jul-2019 13:00 Payers * Medicare Part B - [place] * Bs/PLAN 65 4 * Medicare 978
--- OUTSIDE RECORDS SUMMARY | 2019-11-18 22:27 | XMS REPORT | Summary of Care ---
Author Meeta Gilbert M.D. Organization Unknown Address [address] [place] [phone] Phone Unavailable Care Team Providers Care Home Care Coordinator Name Role Phone Merlyn Ulloa M.D. Unavailable Unavailable Mariama Brandt M.D. Unavailable Unavailable Oksana Ulloa Unavailable Unavailable Unavailable Reason for Visit * Health Issues Reviewed: * Never smoker * PAF (paroxysmal atrial fibrillation) Functional Status Name Dates Details Functional status health issues are not documented Status: Name Dates Details Cognitive status health issues are not d ocumented Status: Problems Name Dates Details Vitamin D deficiency (268.9, E55.9) Status: Active Seborrheic keratosis (702.19, L82.1) Status: Active Dilated aortic root (447.71, I77.810) Status: Active Hypertension (401.9, I10) Status: Active Hypertension associated with diabetes (2 50.80, E11.59) Status: Active Mild mitral and aortic regurgitation (39 6.3, I08.0) Status: Active PAF (paroxysmal atrial fibrillation) (42 7.31, I48.0) Status: Active 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, 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, C7A.8) Status: Active Hypothyroidism (244.9, E03.9) Status: Active Diabetes mellitus type 2, controlled (25 0.00, E11.9) Status: Active Anxiety (300.00, F41.9) Status: Active Cutaneous horn (702.8, L85.8) Status: Active Iron deficiency (280.9, E61.1) Status: Active Potassium deficiency (276.8, E87.6) Status: Active SOB (shortness of breath) (786.05, R06.0 2) Status: Active Medications Name Dates Details Alendronate [...] M.D., Merlyn * Start : 03-Jul-2013 Active Calcium Carbonate-Vitamin D 500-400 MG-UNIT Oral Tablet Take as directed * Refills: 0 * Start : 03-Jul-2013 Active metFORMIN HCl - 1000 MG Oral Tablet TAKE 1 TABLET DAILY WITH FOOD. * Refills: 0 Rikki Dickson.Delia., T. K. * Start : 03-Jul-2013 Active Ferrous Sulfate 325 (65 Fe) MG Oral Tablet TAKE 1 TABLET DAILY DIRECTED. * Refills: 0 * Start : 03-Jul-2013 Active Potassium Chloride ER 10 MEQ Oral Tablet Extended Release take two tablets daily * Refills: 0 * Start : 30-Oct-2015 Active Eliquis 2.5 MG Oral Tablet Take one tablet by mouth twice a day * Quantity: 60 Refills: 0 Rikki Salazar, T. K. * Start : 04-Apr-2015 Active Digoxin 125 MCG Oral Tablet take 1 tablet mon, wed, wed * Quantity: 90 Refills: 3 Artemio Dickson.Delia., Merlyn * Start : 13-Jul-2019 Active Sotalol HCl - 80 MG Oral Tablet TAKE 1 TABLET EVERY 12 HOURS DAILY. * Refills: 0 Rikki Salazar, T. K. * Start : 22-Mar-2015 Active Magnesium Oxide 400 MG Oral Tablet Take 2 tablets three times daily. * Quantity: 180 Refills: 2 Artemio Dickson.Delia., Merlyn * Start : 31-Oct-2015 Active Test Strips Accu-Chek Jacquie Plus Strips - check daily * Quantity: 100 Refills: 4 Artemio Dickson.D., Merlyn * Start : 28-May-2016 Active Bicalutamide 50 MG Oral Tablet TAKE 1 TABLET DAILY. * Quantity: 14 Refills: 0 Artemio Dickson.D., Merlyn * Start : 03-Jul-2013 Active Lisinopril 10 MG Oral Tablet TAKE 1 TABLET DAILY. * Quantity: 30 Refills: 11 Ulloa M.D., Merlyn * Start : 03-Jul-2013 Active Medications Administered Name Dates Details Medication [...] .672) Status: Resolved Procedures Procedure Dates Details CP Echo Date: 20-Jul-2019 History of Small [...] 26-Jul-2014 Prevnar 13 Intramuscular Suspension Lot #: [id number] on: 26-Jul-2014 Pneumovax 23 25 MCG/0.5ML Injection Inje ctable Lot #: [id number] on: 29-Aug-2018 Family History Name Dates Details Family history of Cancer Comments: Family History Status: Active Family history of Hypertension (V17.49) Comments: Family History Status: Active Family history of Diabetes Mellitus (V18 .0) Comments: Family History Status: Active Social History Name Dates Details - Status: Name Dates Details Never smoker Vital Signs Date Test Result Details [id number]:03 BP Systolic 144 mm[Hg] Status: BP Diastolic 60 mm[Hg] Status: Weight 184 lb Status: Body Mass Index Calculated 23 kg/m2 Status: Body Surface Area Calculated 2.12 m2 Status: Heart Rate 61 /min Status: O2 SAT 91 % Status: 52-[id number]:26 BP Systolic 128 mm[Hg] Status: BP Diastolic 58 mm[Hg] Status: Weight 185 lb Status: Body Mass Index Calculated 23.12 kg/m2 Status: Body Surface Area Calculated 2.12 m2 Status: Heart Rate 60 /min Status: O2 SAT 97 % Status: Respiration Rate 18 /min Status: Results Date Description Value Details [id number] ECG/ EKG (Specialists) Electro [facility] Test Date: [id number] Name: Meeta GUZMÁN Department: Room: Gender: Male Mental Retardation Nurse: VRB: 1935 Requested By: Order Number: Reading MD: Jasbir Brandt MD MeasurementsIntervals [place] Rate: 55 P: 45PR: 329 QRS: 19QRSD: 83 T: 60QT: 457 QTc: 439 Interpretive StatementsSINUS BRADYCARDIA WITH FIRST DEGREE AV BLOCK PVCsElectronically Signed On 07-20-2019 13:26:47 LITHOGRAPH PRESS OPERATOR TINWARE by Jasbir Brandt MD [id number] CP Echo Y Linked PDF Report Av ailable for Review by Clicking Imagelink Button Plan of Care Name Dates Details Planned Observations Planned Goals not documented Planned Encounters Appointment; Mariama Brandt M.D. On: 17-Jan-2020 13:30 Instructions Name Dates Details Instructions not documented Encounters Appointment; Merlyn Ulloa M.D. Encounter Diagnosis: PAF (paroxysmal atrial fibrillation) On: 20-Jul-2019 11:15 Payers * Medicare Part B - [place] * Bs/PLAN 65 4 * Medicare 971
--- OUTSIDE RECORDS SUMMARY | 2019-11-18 22:27 | XMS REPORT ---
Discharge Summary 2.1 Created on: 07/13/2019 Meeta GARCIA : 1935 Sex: Male Author Meeta Hernandez Organization Unknown Address [address] [facility] [address] [place], [place] [id number] Care Team Providers Care Director Energy Name Role Phone Xwatchlist FARIDA HANSEN MD HOSPITALIST Attending [phone] CHRISTINE Richardson MD ER Erdoc1 PHOENIX FELDMAN DO [facility] Functional Status No Data Found Immunization Immunization Date Status Additional Notes Code Code System influenza, split (incl. purified surface antigen) 07/13/2001 Completed 15 CVX Mental Status No Data Found Results TROPONIN-I ADV - Collect Date/Time: 11/2018 13:22 [employer] ID: [id number] [address] [facility] [address], [place], [id number] LOINC: 35118-0 Test Value Unit Reference Range Code Code System TROPONIN-I AD 0.11 ng/mL L=0.04 H=0.40 19914-7 LOINC TROPONIN-I ADV - Collect Date/Time: 11/2018 06:30 [employer] ID: [id number] [address] [facility] [address], [place], [id number] LOINC: 11397-2 Test Value Unit Reference Range Code Code System TROPONIN-I AD 0.17 ng/mL L=0.04 H=0.40 80469-7 LOINC TROPONIN-I ADV - Collect Date/Time: 10/2018 19:45 [employer] ID: [id number] [address] [facility] [address], [place], [id number] LOINC: Test Value Unit Reference Range Code Code System TROPONIN-I AD 0.05 ng/mL L=0.04 H=0.40 67132-0 LOINC Social History Type Status Start Date End Date Code Code System Smoking History Never smoker (Never Smoked ) 603098627 SNOMED-CT Vital Signs Vital Sign Value Unit [place] Value [place] Unit Date/Time Recent/Initial? Code Cod e System Body Mass Index 21.36 kg /m2 07/08/2019 23:21 Initial 61604-0 LOINC Systolic Blood Pressure 116 mm[Hg] 07/09/2019 11:00 Most Recent 8480-6 LOINC Diastolic Blood Pressure 54 mm[Hg] 07/09/2019 11:00 Most Recent 8462-4 LOINC Systolic Blood Pressure 107 mm[Hg] 07/08/2019 22:15 Initial 8480-6 LOINC Diastolic Blood Pressure 67 mm[Hg] 07/08/2019 22:15 Initial 8462-4 LOINC Body Surface Area 2.07 m2 07/08/2019 23:21 Initial 3140-1 LOINC Height 193.0400 cm 76.00 in 07/08/2019 23:21 Init ial 8302-2 LOINC O2 Saturation 97 % 07/09/2019 11:00 Most Recent 51408-1 LOINC O2 Saturation 96 % 07/08/2019 22:15 Initi al 23850-0 LOINC Pulse 66.0 /min 07/09/2019 11:00 Most Recent 8867-4 LOINC Pulse 120.0 /min 07/08/2019 22:15 Initi al 8867-4 LOINC Respiration 20 /min 07/09/2019 11:00 Most Recent 9279-1 LOINC Respiration 20 /min 07/08/2019 22:15 Initi al 9279-1 LOINC Temperature 36.6 Raiza 97.9 F 07/09/2019 11:00 Most Recent 8310-5 LOINC Temperature 36.4 Raiza 97.5 F 07/08/2019 22:15 Initi al 8310-5 LOINC Weight 79.61 kg 175.50 lbs 07/08/2019 23:21 Ini tial 37690-9 LOINC Assessment You had the following problems: A FIB WEAKNESS CHEST PAIN DIABETES 2 GERD HYPERTENSION IBS HYPOTHYROIDISM OSTEOPOROSIS Hospital Discharge Instructions Should you have any questions prior to discharge, please contact a member of your healthcare team. If you have left the hospital and have any questions, please contact your primary care physician. PRIMARY CARE PROVIDER: Dr. Ulloa HOME MEDICATION INSTRUCTIONS: Take only the medications listed HOME MEDS RETURNED TO PATIENT: N/A. HOME DIET: resume normal diet ACTIVITY INSTRUCTIONS(list limitations): Activity as Tolerated. SCRIPTS WRITTEN BY DOCTOR GIVEN TO PATIENT? No-none written by physician:. FOLLOW UP APPOINTMENT: Follow up with Dr. kim Ulloa within 2 weeks. INSTRUCTIONS GIVEN AND DISCHARGE TO: Patient, Spouse/SO, Adult Child. INSTRUCTIONS GIVEN BY (TYPE IN NAME AND DATE) Antionette De Los Santos RN 07/09/19 Reason For Referral No Data Found Hospital Course You were admitted to [facility] on 07/08/2019 20:58 with a principal diagnosis of Dehydration You were discharged from [facility] on 07/09/2019 16:20 Medications Medication Start Date En d Date Route Frequency Dose Code Code System Medication Instructions Sotalol HCl 80MG Oral Tablet 02/25/2018 Unknown ORAL TWO TIMES A DAY 80 MILLIGRAMS 3910742 Rx Norm 80 MILLIGRAMS ORAL T WO TIMES A DAY metFORMIN HCl 1000MG Oral Tablet 8 Unknown ORAL TWO TIMES A DAY 1000 MILLIGRAMS 803013 R xNorm 1000 MILLIGRAMS ORAL TWO TIMES A DAY amLODIPine Besylate 10MG Oral Tablet 02/25/2018 Unknown ORAL DAILY 10 MILLIGRAMS 729941 RxNorm 10 MILLIGRAMS ORAL DAILY Brimonidine Tartrate 0.2% Ophthalmic Solution 02/25/2018 Unknown OPTHALMIC TWO TI MES A DAY 1 unit(s) 785133 RxNorm 1 EACH OPTHALMIC TWO TIMES A DAY Bicalutamide 50MG Oral Tablet 02/25/2018 Unknown ORAL DAILY 50 MILLIGRAMS 522379 RxNorm 50 MILLIGRAMS ORAL DAILY Lisinopril 10MG Oral Tablet 02/25/2018 Unknown ORAL DAILY 10 MILLIGRAMS RxNorm 10 MILLIGRAMS ORAL DAILY Levothyroxine 100MCG Oral Tablet 8 Unknown ORAL DAILY 100 MCG 258987 RxNorm 100 MCG ORAL DAILY Furosemide 40MG Oral Tablet 02/25/2018 Unknown ORAL DAILY 40 MILLIGRAMS 893633 RxNorm 40 MILLIGRAMS ORAL DAILY Ferrous Sulfate 325 MG Oral Tablet, Enteric Coated 02/25/2018 Unknown ORAL DAILY 325 MG 878465 RxNorm 325 MG ORAL DAILY Omeprazole 20MG Oral Capsule, Delayed Release 02/25/2018 Unknown ORAL DAILY 20 MILLIGRAMS 680389 RxN orm 20 MILLIGRAMS ORAL D AILY Calcium Carbonate 500MG Oral Tablet 02/25/2018 Unknown BY MOUTH TWO ADOLFO ES A DAY 1 TABLET RxNorm 1 TABLET BY MOUTH TW O TIMES A DAY Potassium Chloride 20MEQ Oral Tablet, Extended Release 07/09/2019 Unknown ORAL DAILY 20 MEQ 3044227 RxNorm 20 MEQ ORAL DAILY FO R HYPOKALEMIA Eliquis 5MG Oral Tablet 07/09/2019 Unknown ORAL TWO TIMES A DAY 5 MILLIGRAMS 0361868 RxNorm 5 MILLIGRAMS ORAL TWO TIMES A DAY FOR BLOOD THINNER Alendronate Sod 70MG Oral Tablet 9 Unknown ORAL WEEKLY 70 MILLIGRAMS RxNorm 70 MILLIGRAMS ORAL WEEKLY FOR OSTEOPOROSIS Latanoprost 0.005% Ophthalmic Solution 07/09/2019 Unknown OPTHALMIC AT BED TIME 1 unit(s) 085064 RxNorm 1 EACH OPTHALMIC AT BEDTIME FOR GLAUCOMA Procedures Procedure Name Date Stat us Code Code System Prostate completed 20734796 SNOMED CT Herniated disc complet ed 83005619 SNOMED CT Esophagus completed 80434166 SNOMED CT Cholecystectomy comple hoang 05110856 SNOMED CT Bilateral cataracts co mpleted 65263516 SNOMED CT Elbow completed 409635083 SNOMED CT Carcinoma, intestinal type completed 70059981 SNOMED CT Implants No Data Found Problems Problem Start Date Resol mary Date Status Code Code System A FIB active 32252323 SNOMED-CT WEAKNESS active 09707904 SNOMED-CT CHEST PAIN active 80570020 SNOMED-CT DIABETES 2 active 79102843 SNOMED-CT GERD a ctive 981629922 SNOMED-CT HYPERTENSION active 36921418 SNOMED-CT IBS ac tive 89416813 SNOMED-CT HYPOTHYROIDISM active 13781113 SNOMED-CT OSTEOPOROSIS active 51183510 SNOMED-CT 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 667929008 SNOME D-CT NEOPLASM OF PROSTATE 1 09/08/2018 resolved 898564277 SNOME D-CT POST-OP PAIN 07/08/2019 resolved 136476105 SNOMED-CT CONSTIPATION 08/13/2011 resolved 87452573 SNOMED-CT FRACTURE OF HIP 2018 resolved 3119198 SNOMED- CT ABDOMINAL DISTENTION 1 10/14/2010 resolved 46156550 SNOMED -CT DECUBITUS ULCER 2017 resolved 361069052 SNOME D-CT Allergies Allergy Substance Reaction Severity Start Date Concern Status Code Code System FENTANYL Mild to Moder ate Active 4337 RxNorm PHENERGAN Confusion (SNOMED-CT: 471339433) Active 870930 RxNorm Plan of Treatment No Data Found Encounters No Data Found Goals No Data Found Discharge Medications No Data Found Discharge Diagnosis Discharge Diagnosis Diagnosis Code Start Date Dehydration E860 019 Health Concerns Section No Data Found
--- OUTSIDE RECORDS SUMMARY | 2019-11-18 22:27 | XMS REPORT | Summary of Care ---
Author Meeta Oviedo M.D. Organization Unknown Address [address] [place] [phone] Phone Unavailable Care Team Providers Care Housekeeping Attendant Name Role Phone Merlyn Ulloa M.D. Unavailable [...] 1 TABLET DAILY DIRECTED. * Refills: 0 Brandt M.D., T. K. * Start : 03-Jul-2013 Active Omeprazole 20 MG Oral Capsule Delayed Release TAKE 1 CAPSULE DAILY EVERY MORNING BEFORE BREAKFAST. * Quantity: 30 Refills: 3 Artemio Salazar, Merlyn * Start : 03-Jul-2013 Active Bicalutamide 50 MG Oral Tablet TAKE 1 TABLET DAILY. * Quantity: 14 Refills: 0 Artemio Salazar, Merlyn * Start : 03-Jul-2013 Active Calcium [...] DAILY. * Quantity: 30 Refills: 11 Artemio Salazar, Merlyn * Start : 03-Jul-2013 Active Ferrous Sulfate 325 (65 Fe) MG Oral Tablet TAKE 1 TABLET DAILY DIRECTED. * Refills: 0 * Start : 03-Jul-2013 Active Sotalol HCl - 80 MG Oral Tablet TAKE 1 TABLET EVERY 12 HOURS DAILY. * Refills: 0 Rikki Salazar T. K. * Start : 22-Mar-2015 Active [...] daily. * Quantity: 180 Refills: 2 Artemio Salazar Merlyn * Start : 31-Oct-2015 Active Test Strips Accu-Chek Jacquie Plus Strips - check daily * Quantity: 100 Refills: 4 Artemio Salazar Merlyn * Start : 28-May-2016 Active Digoxin 125 MCG Oral Tablet take 1 tablet mon, wed, fri * Quantity: 90 Refills: 3 Artemio Salazar Merlyn * Start : 13-Jul-2019 Active Medications [...] 26-Jul-2014 Prevnar 13 Intramuscular Suspension Lot #: [id number] on: 26-Jul-2014 Pneumovax 23 25 MCG/0.5ML Injection Inje ctable Lot #: [id number] on: 29-Aug-2018 Family History Name Dates Details Family history of Cancer Comments: Family History Status: Active Family history of Hypertension (V17.49) Comments: Family History Status: Active Family history of Diabetes Mellitus (V18 .0) Comments: Family History Status: Active Social History Name Dates Details - Status: Name Dates Details Never smoker Vital Signs Date Test Result Details 96-Udo-213712:03 BP Systolic 144 mm[Hg] Status: BP Diastolic 60 mm[Hg] Status: Weight 184 lb Status: Body Mass Index Calculated 23 kg/m2 Status: Body Surface Area Calculated 2.12 m2 Status: Heart Rate 61 /min Status: O2 SAT 91 % Status: 00-Lhh-307531:26 BP Systolic 128 mm[Hg] Status: BP Diastolic 58 mm[Hg] Status: Weight 185 lb Status: Body Mass Index Calculated 23.12 kg/m2 Status: Body Surface Area Calculated 2.12 m2 Status: Heart Rate 60 /min Status: O2 SAT 97 % Status: Respiration Rate 18 /min Status: Results Date Description Value Details 24-Gfr-069740:25 ECG/ EKG (Specialists) Electro [facility] Test Date: 4784-97-89Eqy Name: Meeta GUZMÁN Department: Room: Gender: Male Block Feeder: VRDOB: 1935 Requested By: Order Number: Reading MD: Jasbir Brandt MD MeasurementsIntervals [place] Rate: 55 P: 45PR: 329 QRS: 19QRSD: 83 T: 60QT: 457 QTc: 439 Interpretive StatementsSINUS BRADYCARDIA WITH FIRST DEGREE AV BLOCK PVCsElectronically Signed On 07-20-2019 13:26:47 MECHANICAL MAINTENANCE by Jasbir Brandt MD 65-Ymo-383910:15 CP Echo Y Linked PDF Report Av ailable for Review by Clicking Imagelink Button Plan of Care Name Dates Details Planned Observations Planned Goals not documented Instructions Name Dates Details Instructions not documented Encounters Appointment; Merlyn Ulloa M.D. Encounter Diagnosis: Problem not documented On: 20-Jul-2019 11:15 Appointment; Mariama Brandt M.D. Encounter Diagnosis: PAF (paroxysmal atrial fibrillation), Dilated aortic root, Hypertension associated with diabetes, Hypertension On: 20-Jul-2019 13:00 Appointment; CardioRadha mijares Encounter Diagnosis: Problem not documented On: 20-Jul-2019 15:15 Payers * Medicare Part B - [place] * Bs/PLAN 65 4 * Medicare 977
--- OUTSIDE RECORDS SUMMARY | 2019-11-18 22:27 | XMS REPORT | CCD ---
Author Author Meeta WALLACE Organization Unknown Address [address] [place], [place] [address] Care Team Providers Care Granulating Blender Name Role Phone HORVATH, KENIA DO Attphys HORVATHANITAKENIA DO Prisurg Vital Signs Unknown or Not Available. Allergies Allergy Code Allergy Type Reaction Status No Known Allergies 0 No known allergies Active Procedures Procedure Code Procedure Type Date TROPONIN-I ADV 005865170 SNOMED CT 03/05/2015 CBC W/ AUTO DIFF (RFLX MAN DIFF IF IND) 7620600 SN OMED CT 03/05/2015 COMPREHENSIVE METABOLIC PANEL 264568460 SNOMED CT 03/05/2015 UA ROUTINE C&S IF IND 210213649 SNOMED CT 02/[address] 03/05/2015 ^CBC W/AUTO DIFF 3512279 SNOMED CT 5 ^UA AUTO DIPSTICK ONLY 777999133 SNOMED CT CX CHEST [address] 03/05/2015 History of Immunizations Immunization Code Date influenza, split (incl. purified surface antigen) 15 07/13/2001 Problems Problem Code Start Date Resolved Date Sta tus DECUBITUS ULCER 006731734 07/17/2011 Active Results COMPREHENSIVE METABOLIC PANEL - Collect Date/Time: 03/05/2015 19:35 Test Name Code Test Result Test Units Ingris t Ref Range GLUCOSE 2345-7 143 MG/DL L=70 H=1 00 SODIUM 2951-2 141 MEQ/L L=135 H=14 8 POTASSIUM 2823-3 3.8 MEQ/L L=3.5 H =5.3 CHLORIDE 2075-0 105 MEQ/L L=96 H= 110 CO2 2028-9 21 MEQ/L L=22 H=29 BUN 3094-0 14 MG/DL L=8 H=22 CREATININE 2160-0 1.0 MG/DL L=0.6 H=1.6 SGOT/AST 1920-8 14 IU/L L=10 H= 40 SGPT/ALT 1742-6 10 IU/L L=8 H= 54 ALK PHOS 6768-6 67 IU/L L=35 H= 115 TOTAL PROTEIN 2885-2 6.8 G/DL L=5.5 H=8.5 ALBUMIN 1751-7 4.1 G/DL L=3.1 H=5 .4 TOTAL BILI 1975-2 0.6 MG/DL L=0.0 H=1.5 CALCIUM 00547-8 10.0 MG/DL L=8.2 H= 10.6 AGE 79 yrs GFR NonAA 72 GFR AA 87 eGFR >60 N/A eGFR AA* >60 N/A CBC W/ AUTO DIFF (RFLX MAN DIFF IF IND) - Collect Date/Time: 03/05/2015 19:35 Test Name Code Test Result Test Units Ingris t Ref Range WBC 83794-3 11.9 TH/CMM L=4.5 H=1 0.8 RBC 789-8 4.58 ML/CMM L=4.70 H=6. 10 HGB 718-7 15.1 G/DL L=14.0 H=18 .0 HCT 4544-3 43.8 % L=42.0 H=52 .0 MCV 96 FL L=81 H=99 MCH 33.0 PG L=27.0 H=33 .0 MCHC 34.5 G/DL L=31.0 H=36 .0 RDW SD 44 FL L=36 H=50 RDW CV 12.6 % L=0.0 H=14 .8 MPV 10.3 FL L=9.3 H=12 .5 PLT 777-3 304 TH/CMM L=130 H=44 0 NRBC# 0.00 TH/CMM L=0.00 H=0. 00 NRBC% 0.0 /100WBC L=0.0 H=2 .0 %NEUT 70.2 % %LYMP 22.0 % %MONO 6.1 % %EOS 1.4 % %BASO 0.3 % #NEUT 8.34 TH/CMM L=2.10 H=8. 20 #LYMP 2.62 TH/CMM L=0.90 H=5. 20 #MONO 0.72 TH/CMM L=0.16 H=1. 00 #EOS 0.17 TH/CMM L=0.00 H=0. 80 #BASO 0.04 TH/CMM L=0.00 H=0. 20 MANUAL DIFF NOT IND N/A UA ROUTINE C&S IF IND - Collect Date/Scotty e: 03/05/2015 20:10 Test Name Code Test Result Test Units Ingris t Ref Range COLOR YELLOW N/A NL: YELLOW APPEARANCE CLEAR N/A NL: CLEAR SPEC GRAV 1.015 N/A NL: 1.002 - 1.022 pH 5.5 N/A NL: 5 - 9 PROTEIN NEGATIVE N/A NL: NEGATIVE mg/dl GLUCOSE NEGATIVE N/A NL: NEGATIVE mg/dl KETONE NEGATIVE N/A NL: NEGATIVE mg/dl BILIRUBIN NEGATIVE N/A NL: NEGATI VE BLOOD NEGATIVE N/A NL: NEGATIVE NITRITE NEGATIVE N/A NL: NEGATIVE LEUK SCREEN NEGATIVE N/A NL: NEGA TIVE MICRO INDICATED? NOT INDICATED N/A TROPONIN-I ADV - Collect Date/Time: 02/06 19:35 Test Name Code Test Result Test Units Ingr[place] [address]-9 <0.04 ng/mL L=0.04 H=0.40 TSH - Collect Date/Time: 03/05/2015 19:3 5 Test Name Code Test Result Test Units Ingris t Ref Range TSH 31595-1 0.91 mIU/L L=0.35 H=4 .94 Active Medications Unknown or Not Available. Medications Administered During Visit Unknown or Not Available. Encounters Encounter Diagnosis Diagnosis Code Start Date ATRIAL FIBRILLATION 64280 03/05/2015 Social History Smoking Status Code Start Date End Date Never smoker 491852105 Patient Decision Aids Unknown or Not Available. Discharge Instructions You were admitted to [facility] on 03/05/2015 with a principal diagnosis of ATRIAL FIBRILLATION. You were discharged from [facility] on 03/05/2015. Should you have any questions prior to discharge, please contact a member of your healthcare team. If you have left the hospital and have any questions, please contact your primary care physician. Chief Complaint and Reason For Visit Chief Complaint Date of Onset CHEST PAIN Function Status Unknown or Not Available. Referral/Transition of Care Unknown or Not Available.
--- OUTSIDE RECORDS SUMMARY | 2019-11-18 22:28 | XMS REPORT | Summary of Care ---
Author Meeta Blount M.D. Organization Unknown Address [address] [place] [phone] Phone Unavailable Care Team Providers Care Biofuels Technology Development Manager Name Role Phone Merlyn Ulloa M.D. Unavailable Unavailable Mariama Brandt M.D. Unavailable Unavailable Binu Davis M.D. Unavailable Unavailable Oksana Ulloa Unavailable Unavailable [...] abdom inal wall (209.20, C7A.8) Status: Active Medications Name Dates Details Alendronate Sodium 70 MG Oral Tablet TAKE 1 TABLET ONCE WEEKLY ON WED * Start : 03-Jul-2013 Active Levothyroxine Sodium 100 MCG Oral Tablet TAKE 1 TABLET DAILY DIRECTED. * Refills: 0 Rikki Salazar T. K. * Start : 03-Jul-2013 Active Furosemide 40 MG Oral Tablet TAKE 1 TABLET DAILY DIRECTED. * Quantity: 30 Refills: 0 Merlyn Ulloa M.D. * Start : 03-Jul-2013 Active Omeprazole 20 MG Oral Capsule Delayed Release TAKE 1 CAPSULE DAILY EVERY MORNING BEFORE BREAKFAST. * Quantity: 30 Refills: 3 Ulloa M.D., Merlyn * Start : 03-Jul-2013 Active Bicalutamide 50 MG Oral Tablet TAKE 1 TABLET DAILY. * Quantity: 14 Refills: 0 Ulloa M.D., Merlyn * Start : 03-Jul-2013 [...] Dickson.D., Merlyn * Start : 03-Jul-2013 Active amLODIPine Besylate 10 MG Oral Tablet TAKE 1 TABLET DAILY FOR BLOOD PRESSURE. * Quantity: 30 Refills: 0 Artemio Dickson.D., Merlyn * Start : 03-Jul-2013 Active Ferrous Sulfate 325 (65 Fe) MG Oral Tablet TAKE 1 TABLET DAILY DIRECTED. * Refills: 0 * Start : 03-Jul-2013 Active Sotalol HCl - 80 MG Oral Tablet TAKE 1 TABLET EVERY 12 HOURS DAILY. * Refills: 0 Rikki Salazra, T. K. * Start : 22-Mar-2015 Active Eliquis 5 MG Oral Tablet Take twice daily * Refills: 0 Rikki Salazar, T. K. * Start : 04-Apr-2015 Active Potassium Chloride ER 10 MEQ Oral Tablet Extended Release take two tablets daily * Refills: 0 * Start : 30-Oct-2015 Active Magnesium Oxide 400 MG Oral Tablet Take 2 tablets three times daily. * Quantity: 180 Refills: 2 Artemio Dickson.D., Merlyn * Start : 31-Oct-2015 Active Test Strips Accu-Chek Jacquie Plus Strips - check daily * Quantity: 100 Refills: 4 Artemio Dickson.D., Merlyn * Start : 28-May-2016 Active Azithromycin 250 MG Oral Tablet TAKE 2 TABLETS ON DAY 1 THEN TAKE 1 TABLET A DAY FOR 4 DAYS. * Quantity: 1 Refills: 0 Ulloa M.D., Merlyn * Start : 02-Dec-2018 Active 6 Tablet Pack Medications Administered Name Dates Details Medication Administration [...] 26-Jul-2014 Prevnar 13 Intramuscular Suspension Lot #: [id number] on: 26-Jul-2014 Pneumovax 23 25 MCG/0.5ML Injection Inje ctable Lot #: [id number] on: 29-Aug-2018 Family History Name Dates Details Family history of Cancer Comments: Family History Status: Active Family history of Hypertension (V17.49) Comments: Family History Status: Active Family history of Diabetes Mellitus (V18 .0) Comments: Family History Status: Active Social History Name Dates Details - Status: Name Dates Details Never smoker Vital Signs Date Test Result Details 1-Qeh-205805:16 BP Systolic 98 mm[Hg] Status: BP Diastolic 56 mm[Hg] Status: Weight 184 lb Status: Body Mass Index Calculated 23 kg/m2 Status: Body Surface Area Calculated 2.12 m2 Status: Heart Rate 61 /min Status: Respiration Rate 18 /min Status: Results Date Description Value Details Results not documented Plan of Care Name Dates Details Planned Observations Planned Goals not documented Instructions Name Dates Details Instructions not documented Encounters Appointment; Chris Davis M.D. Encounter Diagnosis: Problem not documented On: 03-Mar-2019 13:30
--- OUTSIDE RECORDS SUMMARY | 2019-11-18 22:28 | XMS REPORT | Summary of Care ---
Author Author Meeta Redman APRN Organization Unknown Address [address] [place] [phone] Phone Unavailable Care Team Providers Care Geomatics Professor Name Role Phone Merlyn Ulloa M.D. Unavailable [...] D04.4) Status: Active Medications Name Dates Details Alendronate Sodium 70 MG Oral Tablet TAKE 1 TABLET ONCE WEEKLY ON WED * Start : 03-Jul-2013 Active Levothyroxine Sodium 100 MCG Oral Tablet TAKE 1 TABLET DAILY DIRECTED. * Refills: 0 Rikki Salazar, T. K. * Start : 03-Jul-2013 Active Furosemide 40 MG Oral Tablet Take 1 tablet daily * Quantity: 30 Refills: 0 Merlyn Ulloa M.D. * Start : 10-Jul-2019 Active Omeprazole 20 MG Oral Capsule Delayed Release TAKE 1 CAPSULE DAILY EVERY MORNING BEFORE BREAKFAST. * Quantity: 30 Refills: 3 Artemio Dickson.Daniel, Merlyn * Start : 03-Jul-2013 Active Bicalutamide 50 MG Oral Tablet TAKE 1 TABLET DAILY. * Quantity: 14 Refills: 0 Artemio Dickson.Daniel, Merlyn * Start : 03-Jul-2013 Active Calcium [...] DAILY. * Quantity: 30 Refills: 11 Artemio Dickson.Daniel, Merlyn * Start : 03-Jul-2013 Active amLODIPine Besylate 10 MG Oral Tablet TAKE 1 TABLET DAILY FOR BLOOD PRESSURE. * Quantity: 30 Refills: 0 Merlyn Ulloa M.D. * Start : 03-Jul-2013 Active Ferrous Sulfate [...] daily. * Quantity: 180 Refills: 2 Artemio Dickson.Merlyn Sanchez * Start : 31-Oct-2015 Active Test Strips Accu-Chek Jacquie Plus Strips - check daily * Quantity: 100 Refills: 4 Artemio Dickson.D., Merlyn * Start : 28-May-2016 Active Azithromycin 250 MG Oral Tablet TAKE 2 TABLETS ON DAY 1 THEN TAKE 1 TABLET A DAY FOR 4 DAYS. * Quantity: 1 Refills: 0 Merlyn Ulloa M.D. * Start : 02-Dec-2018 Active 6 Tablet [...] 26-Jul-2014 Prevnar 13 Intramuscular Suspension Lot #: [id number] on: 26-Jul-2014 Pneumovax 23 25 MCG/0.5ML Injection Inje ctable Lot #: [id number] on: 29-Aug-2018 Family History Name Dates Details Family history of Cancer Comments: Family History Status: Active Family history of Hypertension (V17.49) Comments: Family History Status: Active Family history of Diabetes Mellitus (V18 .0) Comments: Family History Status: Active Social History Name Dates Details - Status: Name Dates Details Never smoker Vital Signs Date Test Result Details No Known Vitals to report Results Date Description Value Details Results not documented Plan of Care Name Dates Details Planned Observations Planned Goals not documented Interventions Provided Medication Changes* Furosemide 40 MG Oral Tablet - Renew Instructions Name Dates Details Instructions not documented Encounters No Encounter data documented Encounter Diagnosis: Problem not documented On: 10-Jul-2019 Payers * Medicare Part B - [place] * Bs/PLAN 65 4 * Medicare 978
--- OUTSIDE RECORDS SUMMARY | 2019-11-18 22:28 | XMS REPORT | Summary of Care ---
Author Meeta Gilbert M.D. Organization Unknown Address [address] [place] [phone] Phone Unavailable Care Team Providers Care Pullboat Engineer Name Role Phone Merlyn Ulloa M.D. Unavailable Unavailable Mariama Brandt M.D. 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 * Quantity: 30 Refills: 3 Artemio M.D., Merlyn * Start : 03-Jul-2013 Active Bicalutamide 50 MG Oral Tablet TAKE 1 TABLET DAILY. * Quantity: 14 Refills: 0 Aretmio M.D., Merlyn * Start : 03-Jul-2013 Active [...] daily. * Quantity: 180 Refills: 2 Artemio M.D., Merlyn * Start : 31-Oct-2015 Active Test Strips Accu-Chek Jacquie Plus Strips - check daily * Quantity: 100 Refills: 4 Ulloa M.D., Merlyn * Start : 28-May-2016 Active Azithromycin 250 MG Oral Tablet TAKE 2 TABLETS ON DAY 1 THEN TAKE 1 TABLET A DAY FOR 4 DAYS. * Quantity: 1 Refills: 0 Artemio M.D.Merlyn * Start : 02-Dec-2018 Active 6 Tablet [...] 26-Jul-2014 Prevnar 13 Intramuscular Suspension Lot #: [id number] on: 26-Jul-2014 Pneumovax 23 25 MCG/0.5ML Injection Inje ctable Lot #: [id number] on: 29-Aug-2018 Family History Name Dates Details Family history of Cancer Comments: Family History Status: Active Family history of Hypertension (V17.49) Comments: Family History Status: Active Family history of Diabetes Mellitus (V18 .0) Comments: Family History Status: Active Social History Name Dates Details - Status: Name Dates Details Never smoker Vital Signs Date Test Result Details [id number] BP Systolic 98 mm[Hg] Status: BP Diastolic 56 mm[Hg] Status: Weight 184 lb Status: Body Mass Index Calculated 23 kg/m2 Status: Body Surface Area Calculated 2.12 m2 Status: Heart Rate 61 /min Status: Respiration Rate 18 /min Status: Results Date Description Value Details [id number] HEMOGLOBIN A1C 3507 Comments: [facility], Kenneth Valentin, [address] [place] HEMOGLOBIN A1C 7.7 Plan of Care Name Dates Details Planned Observations Planned Goals not documented Planned Encounters Appointment; Chris Davis M.D. On: 03-Mar-2019 13:30 Instructions Name Dates Details Instructions not documented Encounters Appointment; Merlyn Ulloa M.D. 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
--- OUTSIDE RECORDS SUMMARY | 2019-11-18 22:28 | XMS REPORT ---
Author Author Meeta Reese Organization [facility] Address [address] [place], [place] [id number] Care Team Providers Care Side Seam Machine Operator Name Role Phone Tutu Reese V PCP Unavailable Tutu Reese V PreferredProvider Unavailable Allergies and Adverse Reactions Name Reaction Notes fentanyl Phenergan Plan of Treatment Planned Activity Comments Planned Date Planned Time Plan/Goal PSA TOTAL 03/02/2017 12:00 AM PSA TOTAL 06/20/2018 12:00 AM PSA TOTAL 01/11/2020 12:00 AM Medications Active Name Start Date Estimated Completion Date SIG Co mments calcium carbonate 500 mg calcium (1,250 mg) oral tablet take 1 tablet by oral route daily Azopt 1 % ophthalmic drops,suspension sotalol 80 mg oral tablet 04/04/2018 TAKE 1 TABLET B Y MOUTH TWICE DAILY lisinopril 10 mg oral tablet 04/04/2018 TAKE 1 TABLE T BY MOUTH DAILY metformin 1,000 mg oral tablet 04/04/2018 TAKE 1 TAB LET BY MOUTH TWICE DAILY Klor-Con Sprinkle 10 mEq oral capsule, extended release 8 TAKE 1 CAPSULE BY MOUTH TWICE DAILY levothyroxine 100 mcg oral tablet 04/04/2018 TAKE 1 TABLET BY MOUTH DAILY latanoprost 0.005 % ophthalmic (eye) drops 04/06/2018 INSTILL 1 DROP EACH EYE EVERY NIGHT AT BEDTIME brimonidine 0.2 % ophthalmic (eye) drops 04/06/2018 INSTILL 1 DROP TO AFFECTED EYE(S) TWICE DAILY bicalutamide 50 mg oral tablet 04/15/2018 TAKE 1 TAB LET BY MOUTH DAILY omeprazole 20 mg oral capsule,delayed release(DR/EC) take 1 capsule (20 mg) by oral route once daily before a meal Mag Glycinate 100 mg oral tablet take 1 t ablet by oral route 2 times a day ferrous sulfate 324 mg (65 mg iron) oral tablet,delayed release (DR/EC) take 1 tablet by oral route daily alendronate 70 mg oral tablet [facility] 1 tablet (70 mg) by oral route once weekly in the morning, at least 30 min before first food, beverage, or medication of day Name Start Date Expiration Date SIG Comments Zithromax Z-Derrick 250 mg oral tablet 09/21/2009 10/01/2009 take 2 tablets (500 mg) by oral route once daily for 1 day then 1 tablet (250 mg) by oral route once daily for 4 days Levaquin 500 mg oral tablet 10/14/2009 10/21/2009 take 1 tablet (500 mg) by oral route once daily for 7 days Zithromax Z-Derrick 250 mg oral tablet 10/22/2010 11/01/2010 take 2 tablets (500 mg) by oral route once daily for 1 day then 1 tablet (250 mg) by oral route once daily for 4 days Bactrim DS 800-160 mg oral tablet 11/10/2010 11/17/2010 take 1 tablet by oral route every 12 hours for 7 days hydrocodone-acetaminophen 5-325 mg oral tablet 05/01/2011 take 1 tablet by oral route every 4 hours as needed for pain azithromycin 500 mg oral tablet 11/24/2014 11/29/2014 take 1 tablet (500 mg) by oral route once daily x 5 days tramadol 50 mg oral tablet 03/02/2018 04/06/2018 take 1 tablet (50 mg) by oral route every 6 hours as needed for 7 days Eliquis 5 mg oral tablet 09/28/2018 10/03/2018 take 1 tablet (5 mg) by oral route 2 times per day for 5 days Discontinued Name Start Date Discontinued Date SIG Comments Fosamax 70 mg oral tablet 03/14/2018 take 1 tablet (70 mg) by oral route once weekly in the morning, at least 30 minutes before the first food, beverage, or medication of the day omeprazole 20 mg oral capsule,delayed release(DR/EC) 05/02/2011 take 1 capsule (20 mg) by oral route once daily before a meal Decreased appetite and metal taste in mouth Casodex 50 mg oral tablet 03/14/2018 take 1 tablet (50 mg) by oral route once daily Klor-Con 10 10 mEq oral tablet extended release 09/19/2019 take 4 tablets (40 meq) by oral route daily Fiber Therapy Oral 625mg 09/19/2019 2 daily Vitamin C 1,000 mg oral tablet 09/19/2019 take 1 tab let by oral route daily aspirin 81 mg oral tablet 06/20/2018 hyoscyamine sulfate 0.125 mg oral tablet 09/02/2009 8 take 1 tablet by oral route 2 times a day Keflex 500 mg oral capsule 02/10/2010 07/16/2010 take 1 capsule (500 mg) by oral route every 12 hours Spectazole 1 % topical cream 02/10/2010 03/14/2018 stella ly to the affected and surrounding areas of skin by topical route 2 times per day Vitamin D3 2,000 unit oral tablet 09/19/2019 take 1 tablet by oral route daily Levaquin 750 mg oral tablet 12/12/2010 12/15/2010 take 1 tablet (750 mg) by oral route once daily for 7 days Augmentin 875-125 mg oral tablet 12/15/2010 12/23/2010 take 1 tablet by oral route every 12 hours for 10 days meloxicam 15 mg oral tablet 12/23/2010 03/14/2018 take 1 tablet (15 mg) by oral route once daily metoclopramide HCl 10 mg oral tablet 02/09/2011 03/14/2018 take 1 tablet by oral route 3 times a day fentanyl 12 mcg/hr transdermal patch 72 hour 05/02/201103/14 apply 1 patch (12 mcg/hour) by transdermal route every 72 hours Carafate 1 gram oral tablet 05/02/2011 03/14/2018 take 1 tablet by oral route 3 times a day Zofran (as hydrochloride) 8 mg oral tablet 05/02/20112014 take 1 tablet by oral route every 6 hours as needed Klor-Con Sprinkle 10 mEq oral capsule, extended release 8 03/14/2018 TAKE 1 CAPSULE BY MOUTH TWICE DAILY glimepiride 2 mg oral tablet 04/04/2018 06/20/2018 YESSI E 1 TABLET BY MOUTH DAILY WITH A MEAL amlodipine 10 mg oral tablet 04/04/2018 09/19/2019 TAKE 1 TABLE T BY MOUTH DAILY furosemide 40 mg oral tablet 04/04/2018 09/19/2019 TAKE 1 TABLE T BY MOUTH DAILY Problem List Description Status Onset Diabetes Mellitus, Type II Active Hypertension Active Adenocarcinoma of prostate Active 10/16/2014 Cancer of prostate Active 02/20/2015 Vital Signs Date Time BP-Sys(mm[Hg] BP-Thuy(mm[Hg]) HR(bpm) RR(rpm) Temp WT HT HC BMI BSA BMI Percentile O2 Sat(%) 09/19/2019 3:50:00 PM 124 mm[Hg] 78 mm[Hg] 50 {beats}/min 18 rpm 97.2 F 186 lbs 75 in 23.2482 kg/m2 2.1129 m2 99 % 07/13/2019 2:40:00 PM 130 mm[Hg] 60 mm[Hg] 61 {beats}/min 18 rpm 97 F 186 lbs 75 in 23.25 kg/m2 2.11 m2 99 % 12/23/2018 1:15:00 PM 126 mm[Hg] 78 mm[Hg] 68 {beats}/min 18 rpm 97.9 F 185 lbs 75 in 23.12 kg/m2 2.1072 m2 96 % 06/20/2018 1:22:00 PM 128 mm[Hg] 72 mm[Hg] 66 {beats}/min 16 rpm 97.7 F 185.375 lbs 75 in 23.17 kg/m2 2.1094 m2 97 % 03/14/2018 10:11:00 AM 142 mm[Hg] 62 mm[Hg] 60 {beats}/min 14 rpm 97.7 F 179 lbs 75 in 22.37 kg/m2 2.07 m2 97 % 02/28/2016 8:31:00 AM 138 mm[Hg] 64 mm[Hg] 59 {beats}/min 18 rpm 97.5 F 206 lbs 76 in 25.0748 kg/m2 2.2384 m2 97 % 11/24/2014 10:51:00 AM 132 mm[Hg] 64 mm[Hg] 92 {beats}/min 18 rpm 98.4 F 218 lbs 76 in 26.54 kg/m2 2.30 m2 97 % 03/07/2012 9:17:00 AM 136 mm[Hg] 64 mm[Hg] 64 {beats}/min 18 rpm 205.5 lbs 76 in 25.014 kg/m2 2.2357 m2 02/09/2011 9:32:00 AM 128 mm[Hg] 68 mm[Hg] 70 {beats}/min 18 rpm 98.2 F 204 lbs 12/23/2010 3:42:00 PM 144 mm[Hg] 80 mm[Hg] 72 {beats}/min 16 rpm 98.4 F 212 lbs 96 % 12/12/2010 3:50:00 PM 150 mm[Hg] 62 mm[Hg] 67 {beats}/min 18 rpm 97.9 F 213 lbs 98 % 11/10/2010 3:33:00 PM 140 mm[Hg] 68 mm[Hg] 70 {beats}/min 16 rpm 97.9 F 213 lbs 07/16/2010 10:16:00 AM 126 mm[Hg] 62 mm[Hg] 60 {beats}/min 18 rpm 97.2 F 211 lbs 02/10/2010 10:40:00 AM 138 mm[Hg] 70 mm[Hg] 72 {beats}/min 16 rpm 97.8 F 219 lbs 11/27/2009 3:22:00 PM 156 mm[Hg] 78 mm[Hg] 72 {beats}/min 20 rpm 97.2 F 223 lbs 76 in 27.1441 kg/m2 2.3289 m2 10/14/2009 10:30:00 AM 185 mm[Hg] 82 mm[Hg] 78 {beats}/min 18 rpm 97.6 F 226.312 lbs 09/20/2009 9:19:00 AM 140 mm[Hg] 68 mm[Hg] 56 {beats}/min 20 rpm 97.8 F 224 lbs 09/02/2009 2:51:00 PM 138 mm[Hg] 70 mm[Hg] 66 {beats}/min 18 rpm 97.1 F 219 lbs 76 in 26.6572 kg/m2 2.308 m2 Social History Name Description Comments No Alcohol Use No Tobacco Use History of Procedures Date Ordered Description Order Status 10/14/2009 12:00 AM DXA BONE DENSITY AXIAL Reviewed 03/07/2012 12:00 AM THER/PROPH/DIAG INJ SC/IM Reviewed 03/07/2012 12:00 AM Decadron 1 mg ND#[id number] (Donavon) Reviewed 03/07/2012 12:00 AM Depo-Medrol 80 mg ND#[id number] te Reviewed 11/27/2009 12:00 AM ELECTROCARDIOGRAM COMPLETE Reviewed 03/14/2018 12:00 AM ASSAY OF PSA TOTAL Reviewed 12/21/2018 12:00 AM ASSAY OF PSA TOTAL Reviewed 12/23/2018 12:00 AM URINALYSIS AUTO W/SCOPE Reviewed 11/02/2019 9:07 AM FALL RISK ASSESSMENT DOCD Reviewed 11/02/2019 9:07 AM SCREEN DEPRESSION PERFORMED Reviewed 09/20/2009 12:00 AM TDAP VACCINE 7 YRS/> IM Reviewed 09/20/2009 12:00 AM IMMUNIZATION ADMIN Reviewed 03/06/2010 12:00 AM COMPLETE CBC W/AUTO DIFF WBC Reviewed 03/06/2010 12:00 AM COMPREHEN METABOLIC PANEL Reviewed 03/06/2010 12:00 AM ASSAY THYROID STIM HORMONE Reviewed 03/06/2010 12:00 AM ASSAY OF PSA TOTAL Reviewed 03/06/2010 12:00 AM VITAMIN D 25 HYDROXY Reviewed 03/06/2010 12:00 AM ASSAY OF FERRITIN Reviewed 06/12/2014 12:06 PM THER/PROPH/DIAG INJ SC/IM Reviewed 06/12/2014 12:06 PM Lupron Depot 3.75 Mg Reviewed 12/12/2010 12:00 AM COMPLETE CBC W/AUTO DIFF WBC Reviewed 12/12/2010 12:00 AM COMPREHEN METABOLIC PANEL Reviewed 12/12/2010 12:00 AM CHEST X-RAY 2VW FRONTAL&LATL Reviewed 12/12/2010 12:00 AM GLYCOSYLATED HEMOGLOBIN TEST Reviewed 02/09/2011 12:00 AM X-RAY EXAM OF ABDOMEN Reviewed Results Summary Date and Description Results 11/27/2009 4:41 PM Cholest Cry Stone Ql IR 0.0 %Colonoscopy-Women and Men over 50 Declined PSA SerPl-mCnc 0.0 ng/mLHgb A1c Fr Bld 0.0 %Dialated Eye Exam- Diabetic Declined Foot Exam-Diabetic Declined 12/12/2010 5:50 PM GLYCOHEMOGLOBIN A1C 5.70 %WB C 6.9 RBC 4.20 HGB 13.60 g/dLHCT 40.40 %MCV 96.0 fLMCH 32.40 pgMCHC 33.70 g/dLRDW SD 43 RDW CV 12.40 %MPV 9.90 fLPLT 243 NRBC# 0.00 NRBC% 0.0 %NEUT 62.10 %%LYMP 24.20 %%MONO 7.50 %%EOS 5.50 %%BASO 0.70 %#NEUT 4.29 #LYMP 1.67 #MONO 0.52 #EOS 0.38 #BASO 0.05 MANUAL DIFF NOT IND GLUCOSE 103.0 mg/dLSODIUM 142.0 mmol/LPOTASSIUM 3.80 mmol/LCHLORIDE 106.0 mmol/LCO2 25.0 mmol/LBUN 12.0 mg/dLCREATININE 0.80 mg/dLSGOT/AST 12.0 IU/LSGPT/ALT 6.0 IU/LALK PHOS 64.0 IU/LTOTAL PROTEIN 6.50 g/dLALBUMIN 4.10 g/dLTOTAL BILI 0.30 mg/dLCALCIUM 9.40 mg/dLAGE 75 GFR NonAA 94 GFR AA 114 eGFR >60 mL/min/1.73 m2eGFR AA* >60 06/15/2018 11:18 AM PSA TOTAL <0.06 08/24/2018 2:08 PM Falls in last 6 months? Yes Unsteady or worry about falling? Yes Fall Risk Assessment At Risk 12/22/2018 8:45 PM PSA TOTAL <0.06 12/23/2018 2:58 PM COLOR YELLOW APPEARANCE SANDEEP R SPEC GRAV 1.025 pH 5.5 PROTEIN NEGATIVE GLUCOSE NEGATIVE KETONE NEGATIVE BILIRUBIN NEGATIVE BLOOD NEGATIVE NITRITE NEGATIVE LEUK SCREEN NEGATIVE WBC/HPF 0 RBC/HPF NEGATIVE CASTS/LPF 2++ CRYSTALS NEGATIVE MUCOUS THRDS F BACTERIA NEGATIVE EPITH CELLS 1+ TRICHOMONAS NEGATIVE YEAST NEGATIVE CULT SET UP? NO 11/02/2019 9:07 AM Falls in last 6 months? Yes Unsteady or worry about falling? Yes Fall Risk Assessment At Risk During the past month, have you been feeling depressed? No During the past month, have you lost interest in usual activity? No History Of Immunizations Name Date Admin Mfg Name Mfg Code Trade Name Lot# Route Inj Vis Given Vis Pub CVX Tdap 09/20/2009 [employer] SKB BOOSTRIX [id number] Intramuscular Left Deltoid 09/20/2009 05/24/2008 999 History of Past Illness Name Date of Onset Comments Abdominal pain, Generalized Sep 02 2009 2:53PM Diarrhea Sep 02 2009 2:53PM Prostate Neoplasm, Malignant Diabetes Mellitus, Type II Hypertension Cough Sep 20 2009 9:22AM Sinusitis, Acute Sep 20 2009 9:22AM Wound, hand except finger(s) without complication Sep 20 201 0 9:22AM Prostate Neoplasm, Malignant Sep 22 2009 4:10PM Osteopenia Sep 22 2009 4:10PM Anemia Sep 22 2009 4:10PM Maxillary Sinusitis, Acute Oct 14 2009 10:38AM Osteopenia Oct 14 2009 10:38AM Right Otitis Media, Acute Oct 14 2009 10:38AM Osteoporosis Irritable bowel syndrome Hypothyroidism, acquired GERD Special investigations and examinations; other specified examinations; pre- operative cardiovascular examination Nov 27 2009 3:25PM Cataract Nov 27 2009 3:25PM Diabetes Mellitus, Type II Feb 10 2010 10:42AM Mild Cellulitis Feb 10 2010 10:42AM Tinea Pedis Feb 10 2010 10:42AM Cough Jul 16 2010 10:17AM Sinusitis, Acute Jul 16 2010 10:17AM Adenocarcinoma of prostate 10/16/2014 Cancer of prostate 02/20/2015 Bronchitis, Acute Nov 10 2010 3:34PM Cough Dec 12 2010 3:51PM Bronchitis, Acute Dec 12 2010 3:51PM Costochondritis Dec 23 2010 3:43PM Abdominal Pain, Generalized Feb 09 2011 9:31AM Constipation Feb 09 2011 9:31AM Ileus Feb 09 2011 9:31AM Seasonal Allergies Mar 07 2012 9:19AM Adenocarcinoma of prostate Oct 16 2014 8:28AM Influenza Nov 24 2014 10:53AM Sinusitis, Acute Nov 24 2014 10:53AM Upper Respiratory Infections Nov 24 2014 10:53AM Cancer of prostate Feb 20 2015 9:12AM Adenocarcinoma of prostate Jun 21 2015 8:24AM Adenocarcinoma of prostate Oct 22 2015 9:37AM Adenocarcinoma of prostate Feb 28 2016 8:52AM Adenocarcinoma of prostate Jul 06 2016 1:29PM Adenocarcinoma of prostate Nov 05 2016 9:12AM Prostate cancer Mar 02 2017 11:10AM Drug therapy Mar 02 2017 11:10AM Adenocarcinoma of prostate Mar 10 2017 8:13AM Adenocarcinoma of prostate Jul 13 2017 7:57AM Adenocarcinoma of prostate Nov 10 2017 9:51AM Prostate cancer Mar 14 2018 10:14AM Prostate cancer Jun 20 2018 1:24PM Risk for falls Aug 24 2018 2:08PM Prostate CA Dec 21 2018 4:37PM Prostate cancer Dec 23 2018 1:20PM Prostate cancer Jul 13 2019 3:06PM Prostate cancer Jul 13 2019 2:43PM Neuroendocrine tumor Jul 13 2019 2:43PM Urinary Frequency Sep 19 2019 4:11PM Payers Insurance Name Company Name Plan Name Plan Number Policy Number Michael cy Group Number Start Date Medicare Part B [employer] [place] [id number] N/A [facility] [id number] 2009 Medicare Part B [employer] [place] [id number] Friday, 1999 History of Encounters Visit Date Visit Type Provider 11/01/2019 Office visit Tutu Reese DO 09/19/2019 Office visit Gregorio Knott MD 07/13/2019 Office visit Gregorio Knott MD 07/09/2019 [facility] Tammie Lazcano MD 07/08/2019 [facility] John Montilla MD 07/06/2019 Hospital John Montilla MD 05/17/2019 [facility] John Montilla MD 12/23/2018 Office visit Gregorio Knott MD 11/16/2018 [facility] John Montilla MD 06/20/2018 Office visit Gregorio Knott MD 03/14/2018 Office visit Gregorio Knott MD 03/03/2018 Office visit Tutu Reese DO 02/20/2018 [facility] John Montilla MD 02/20/2018 [facility] Skip Burns MD 11/10/2017 Office visit V Natasha Marti MD 07/13/2017 Office visit V Natasha Marti MD 03/10/2017 Office visit V Natasha Marti MD 11/05/2016 Office visit V Natasha Marti MD 07/06/2016 Office visit V Natasha Marti MD 02/28/2016 Office visit V Natasha Marti MD 10/22/2015 Office visit V Natasha Marti MD 06/21/2015 Office visit V Natasha Marti MD 03/11/2015 [facility] John Montilla MD 02/20/2015 Office visit V Natasah Marti MD 11/24/2014 Office visit Wendy Ortega APRN 10/16/2014 Office visit V Natasha Marti MD 06/12/2014 Office visit V Natasha Marti MD 03/07/2012 Office visit Katlyn Michael APRN 08/13/2011 [facility] Marcial Toledo MD 08/12/2011 [facility] Marcial Toledo MD 07/20/2011 [facility] Sangita Ibrahim MD 07/19/2011 [facility] Sangita Ibrahim MD 05/07/2011 Hospital John Montilla MD 03/30/2011 [facility] John Montilla MD 02/09/2011 Office visit George Raphael DO 12/23/2010 Office visit George Raphael DO 12/12/2010 Office visit Katlyn Michael APRN 11/10/2010 Office visit George Raphael DO 07/16/2010 Office visit George Raphael DO 02/10/2010 Office visit George Raphael DO 11/27/2009 Office visit Carmen MALIK 11/27/2009 Laboratory Nicholas Munguia MD 10/14/2009 Office visit George Raphael DO 09/20/2009 Office visit George Raphael DO 09/02/2009 Office visit George Raphael DO 05/17/2009 Nurse visit George Raphael DO 05/03/2009 Office visit George Raphael DO 05/01/2009 Laboratory Nicholas Munguia MD
--- OUTSIDE RECORDS SUMMARY | 2019-11-18 22:28 | XMS REPORT | Summary of Care ---
Author Meeta Gilbert M.D. Organization Unknown Address [address] [place] [phone] Phone Unavailable Care Team Providers Care Aesthetician Name Role Phone Merlyn Ulloa M.D. Unavailable Unavailable Mariama Brandt M.D. Unavailable Unavailable Oksana Ulloa Unavailable Unavailable Unavailable Functional Status Name Dates Details Functional status health issues are not documented Status: Name Dates Details Cognitive status health issues are not d ocumented Status: Problems Name Dates Details Vitamin D deficiency (268.9, E55.9) Status: Active Hypothyroidism (244.9, E03.9) Status: Active Anxiety (300.00, F41.9) Status: Active Diabetes mellitus type 2, controlled (25 0.00, E11.9) Status: Active SOB (shortness of breath) (786.05, R06.0 2) Status: Active Potassium deficiency (276.8, E87.6) Status: Active Hypertension (401.9, I10) Status: Active 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, C7A.8) Status: Active Dilated aortic root (447.71, I77.810) Status: Active PAF (paroxysmal atrial fibrillation) (42 7.31, I48.0) Status: Active Iron deficiency (280.9, E61.1) Status: Active Chest congestion (786.9, R09.89) Status: Active Cutaneous horn (702.8, L85.8) Status: Active Medications Name Dates Details Alendronate Sodium 70 MG Oral Tablet TAKE 1 TABLET ONCE WEEKLY ON WED * Start : 03-Jul-2013 Active Levothyroxine Sodium 100 MCG Oral Tablet TAKE 1 TABLET DAILY DIRECTED. * Refills: 0 Rikki Salazar, T. K. * Start : 03-Jul-2013 Active Furosemide 40 MG Oral Tablet TAKE 1 TABLET DAILY DIRECTED. * Quantity: 30 Refills: 0 * Start : 03-Jul-2013 Active Omeprazole 20 MG Oral Capsule Delayed Release TAKE 1 CAPSULE DAILY EVERY MORNING BEFORE BREAKFAST. * Refills: 0 Rikki Salazar, T. K. * Start : 03-Jul-2013 Active Bicalutamide 50 MG Oral Tablet TAKE 1 TABLET DAILY. * Quantity: 30 Refills: 4 Merlyn Ulloa M.D. * Start : 03-Jul-2013 Active Calcium Carbonate-Vitamin D 500-400 MG-UNIT Oral Tablet Take as directed * Refills: 0 * Start : 03-Jul-2013 Active MetFORMIN HCl - 1000 MG Oral Tablet TAKE 1 TABLET DAILY WITH FOOD. * Refills: 0 Rikki Salazar, T. K. * Start : 03-Jul-2013 Active Lisinopril 10 MG Oral Tablet TAKE 1 TABLET DAILY. * Quantity: 30 Refills: 11 Merlyn Ulloa M.D. * Start : 03-Jul-2013 Active AmLODIPine Besylate 10 MG Oral Tablet TAKE 1 TABLET DAILY FOR BLOOD PRESSURE. * Refills: 0 Rikki Salazar, T. K. * Start : 03-Jul-2013 Active 30 Tablet Bottle Ferrous Sulfate 325 (65 Fe) MG Oral [...] times daily. * Quantity: 180 Refills: 2 Merlyn Ulloa M.D. * Start : 31-Oct-2015 Active Test Strips Accu-Chek Jacquie Plus Strips - check daily * Quantity: 100 Refills: 4 Merlyn Ulloa M.D. * Start : 28-May-2016 Active Allergies and Adverse Reactions Name Dates Details [...] 26-Jul-2014 Prevnar 13 Intramuscular Suspension Lot #: [id number] on: 26-Jul-2014 Pneumovax 23 25 MCG/0.5ML Injection Inje ctable Lot #: [id number] on: 29-Aug-2018 Family History Name Dates Details Family history of Cancer Comments: Family History Status: Active Family history of Hypertension (V17.49) Comments: Family History Status: Active Family history of Diabetes Mellitus (V18 .0) Comments: Family History Status: Active Social History Name Dates Details - Status: Name Dates Details Never smoker Vital Signs Date Test Result Details [id number]-Hla-[id number]:18 BP Systolic 132 mm[Hg] Status: BP Diastolic 58 mm[Hg] Status: Weight 188 lb Status: Body Mass Index Calculated 23.5 kg/m2 Status: Body Surface Area Calculated 2.14 m2 Status: Heart Rate 60 /min Status: Respiration Rate 18 /min Status: Results Date Description Value Details Results not documented Plan of Care Name Dates Details Planned Observations Planned Goals not documented Interventions Provided Medications/Immunizations Administered* Pneumovax 23 25 MCG/0.5ML Injection Injectable; Done: 29 Aug 2018 Instructions Name Dates Details Instructions not documented Encounters Appointment; Merlyn Ulloa M.D. Encounter Diagnosis: Problem not documented On: 19-Oct-2016 14:15 Appointment; Mariama Brandt M.D. Encounter Diagnosis: Problem not documented On: 09-Nov-2016 10:00 Appointment; Mariama Brandt M.D. Encounter Diagnosis: Problem not documented On: 17-May-2017 9:30 Appointment; Tmia Phelan M.D.|Humberto Tapia,TIGRE,NHI, Encounter Diagnosis: Problem not documented On: 03-Sep-2017 10:30 Appointment; Merlyn Ulloa M.D. Encounter Diagnosis: Problem not documented On: 28-Jan-2018 11:30 Appointment; Merlyn Ulloa M.D. Encounter Diagnosis: Problem not documented On: 29-Aug-2018 11:15"
--- OUTSIDE RECORDS SUMMARY | 2019-11-18 22:28 | XMS REPORT ---
Author Author Meeta Reese Organization [facility] Address [address] [place], [place] [id number] Care Team Providers Care Electrical Lineworker Name Role Phone Tutu Reese V PCP [...] route daily alendronate 70 mg oral tablet critical access hospital 1 tablet (70 mg) by oral route [...] Reviewed 03/07/2012 12:00 AM Decadron 1 mg ND#[id number] (Donavon) Reviewed 03/07/2012 12:00 AM Depo-Medrol 80 mg ND#[id number]-Vouigs te Reviewed 11/27/2009 12:00 AM ELECTROCARDIOGRAM COMPLETE [...] Vis Given Vis Pub CVX Tdap 09/20/2009 [employer] SKB BOOSTRIX [id number] Intramuscular Left Deltoid 09/20/2009 05/24/2008 999 History [...] Date Medicare Part B Medicare [place] [id number] N/A [id number] 2009 Medicare Part B Medicare [place] [id number] Friday, 1999 History of Encounters Visit Date Visit Type Provider 11/01/2019 Office visit Tutu Reese DO 09/19/2019 Office visit Gregorio Knott MD 07/13/2019 Office visit Gregorio Knott MD 07/09/2019 [facility] Tammie Lazcano MD 07/08/2019 Hospital John Montilla MD 07/06/2019 Hospital John Montilla MD 05/17/2019 [facility] John Montilla MD 12/23/2018 Office visit Gregorio Knott MD 11/16/2018 [facility] John Montilla MD 06/20/2018 Office visit Gregorio Knott MD 03/14/2018 Office visit Gregorio Knott MD 03/03/2018 Office visit Tutu Reese DO 02/20/2018 [facility] John Montilla MD 02/20/2018 [facility] Skip Burns MD 11/10/2017 Office visit V Natasha Marti MD 07/13/2017 Office visit V Natasha Marti MD 03/10/2017 Office visit V Natasha Marti MD 11/05/2016 Office visit V Natasha Marti MD 07/06/2016 Office visit V Natasha Marti MD 02/28/2016 Office visit V Natasha Marti MD 10/22/2015 Office visit V Natasha Marti MD 06/21/2015 Office visit V Natasha Marti MD 03/11/2015 [facility] John Montilla MD 02/20/2015 Office visit V Natasha Marti MD 11/24/2014 Office visit Wendy Ortega APRN 10/16/2014 Office visit V Natasha Marti MD 06/12/2014 Office visit V Natasha Marti MD 03/07/2012 Office visit Katlyn Michael APRN 08/13/2011 [facility] Marcial Toledo MD 08/12/2011 [facility] Marcial Toledo MD 07/20/2011 [facility] Sangita Ibrahim MD 07/19/2011 [facility] Sangita Ibrahim MD 05/07/2011 Hospital John Montilla MD 03/30/2011 [facility] John Montilla MD 02/09/2011 Office visit George [...]
--- OUTSIDE RECORDS SUMMARY | 2019-11-18 22:29 | XMS REPORT ---
Author Author Meeta Knott Organization [facility] Address [address] [place] [id number] Care Team Providers Care Tube Splicer Name Role Phone Gregorio Knott PCP Allergies and Adverse Reactions Name Reaction Notes [...] route daily alendronate 70 mg oral tablet ta ke 1 tablet (70 mg) by oral route [...] Reviewed 03/07/2012 12:00 AM Decadron 1 mg ND#[id number] (Donavon) Reviewed 03/07/2012 12:00 AM Depo-Medrol 80 mg ND#[id number]-Ztypuk te Reviewed 11/27/2009 12:00 AM ELECTROCARDIOGRAM COMPLETE Reviewed 03/14/2018 12:00 AM ASSAY OF PSA TOTAL Reviewed 12/21/2018 12:00 AM ASSAY OF PSA TOTAL Reviewed 12/23/2018 12:00 AM URINALYSIS AUTO W/SCOPE Reviewed 09/20/2009 12:00 AM TDAP VACCINE 7 [...] NEGATIVE YEAST NEGATIVE CULT SET UP? NO History Of Immunizations Name Date Admin Mfg Name Mfg Code Trade Name Lot# Route Inj Vis Given Vis Pub CVX Tdap 09/20/2009 GlaxoSmithKline SKB BOOSTRIX [id number] Intramuscular Left Deltoid 09/20/2009 05/24/2008 999 History [...] Date Medicare Part B Medicare [place] [id number] N/A [facility] [id number] 2009 Medicare Part B Medicare [place] [id number] Friday, 1999 History of Encounters Visit Date Visit Type Provider 09/19/2019 Office visit Gregorio Knott MD 07/13/2019 Office visit Gregorio Knott MD 07/09/2019 Hospital Tammie Lazcano MD 07/08/2019 Hospital John Montilla MD 07/06/2019 Hospital John Montilla MD 05/17/2019 [facility] John Montilla MD 12/23/2018 Office visit Gregorio Knott MD 11/16/2018 Hospital John Montilla MD 06/20/2018 Office visit Gregorio Knott MD 03/14/2018 Office visit Gregorio Knott MD 03/03/2018 Office visit Tutu Reese DO 02/20/2018 Hospital John Montilla MD 02/20/2018 [facility] Skip Burns MD 11/10/2017 Office visit V Natasha Marti MD 07/13/2017 Office visit V Natasha Marti MD 03/10/2017 Office visit V Natasha Marti MD 11/05/2016 Office visit V Natahsa Marti MD 07/06/2016 Office visit V Natasha Marti MD 02/28/2016 Office visit V Natasha Marti MD 10/22/2015 Office visit V Natasha Marti MD 06/21/2015 Office visit V Natasah Marti MD 03/11/2015 [facility] John Montilla MD 02/20/2015 Office visit V Natasha Marti MD 11/24/2014 Office visit Wendy Ortega PLANT CUSTODIAN 10/16/2014 Office visit V Natasha Marti MD 06/12/2014 Office visit V Natasha Marti MD 03/07/2012 Office visit Katlyn Michael PLANT CUSTODIAN 08/13/2011 Hospital Marcial Toledo MD 08/12/2011 [facility] Marcial Toledo MD 07/20/2011 [facility] Sangita Ibrahim MD 07/19/2011 [facility] Sangita Ibrahim MD 05/07/2011 [facility] John Montilla MD 03/30/2011 [facility] John Montilla MD 02/09/2011 Office visit George Raphael DO 12/23/2010 Office visit George Raphael DO 12/12/2010 Office visit Katlyn Michael PLANT CUSTODIAN 11/10/2010 Office visit George Donavon DO 07/16/2010 Office visit George Donavon DO 02/10/2010 Office visit George Donavon DO 11/27/2009 Office visit Carmen MALIK 11/27/2009 Laboratory Nicholas Munguia MD 10/14/2009 Office visit George Donavon DO 09/20/2009 Office visit George Donavon DO 09/02/2009 Office visit George Donavon DO 05/17/2009 Nurse visit George Donavon DO 05/03/2009 Office visit George Raphael DO 05/01/2009 Laboratory Nicholas Munguia MD
--- OUTSIDE RECORDS SUMMARY | 2019-11-18 22:29 | XMS REPORT ---
Author Author Meeta Knott Organization [facility] Address [address] [place] [id number] Care Team Providers Care Medical Videographer Name Role Phone Gregorio Knott PCP Allergies and Adverse Reactions Name Reaction Notes fentanyl Phenergan Plan of Treatment Planned Activity Comments Planned Date Planned Time Plan/Goal PSA TOTAL 03/02/2017 12:00 AM PSA TOTAL 06/20/2018 12:00 AM URINALYSIS W/MICRO C&S IF IND 12/23/2018 12:00 AM Medications Active Name Start Date Estimated Completion Date SIG Co mments Klor-Con 10 10 mEq oral tablet extended release take 4 tablets (40 meq) by oral route daily calcium carbonate 500 mg calcium (1,250 mg) oral tablet take 1 tablet by oral route daily Fiber Therapy Oral 625mg 2 daily Vitamin C 1,000 mg oral tablet take 1 tab let by oral route daily Azopt 1 % ophthalmic drops,suspension Vitamin D3 2,000 unit oral tablet take 1 tablet by oral route daily sotalol 80 mg oral tablet 04/04/2018 TAKE 1 TABLET B Y MOUTH TWICE DAILY amlodipine 10 mg oral tablet 04/04/2018 TAKE 1 TABLE T BY MOUTH DAILY lisinopril 10 mg oral tablet 04/04/2018 TAKE 1 TABLE T BY MOUTH DAILY metformin 1,000 mg oral tablet 04/04/2018 TAKE 1 TAB LET BY MOUTH TWICE DAILY Klor-Con Sprinkle 10 mEq oral capsule, extended release 8 TAKE 1 CAPSULE BY MOUTH TWICE DAILY furosemide 40 mg oral tablet 04/04/2018 TAKE 1 TABLE T BY MOUTH DAILY levothyroxine 100 mcg oral tablet 04/04/2018 [...] (50 mg) by oral route once daily aspirin 81 mg oral tablet 06/20/2018 [...] by topical route 2 times per day Levaquin 750 mg oral tablet 12/12/2010 12/15/2010 [...] TABLET BY MOUTH DAILY WITH A MEAL Problem List Description Status Onset Diabetes Mellitus, Type II Active Hypertension Active Adenocarcinoma of prostate Active 10/16/2014 Cancer of prostate Active 02/20/2015 Vital Signs Date Time BP-Sys(mm[Hg] BP-Thuy(mm[Hg]) HR(bpm) RR(rpm) Temp WT HT HC BMI BSA BMI Percentile O2 Sat(%) 12/23/2018 1:15:00 PM 126 mmHg 78 mmHg 68 bpm 18 rpm 97.9 F 185 lbs 75 in 23.1232 kg/m 2.1072 m 96 % 06/20/2018 1:22:00 PM 128 mmHg 72 mmHg 66 bpm 16 rpm 97.7 F 185.375 lbs 75 in 23.17 kg/m2 2.11 m2 97 % 03/14/2018 10:11:00 AM 142 mmHg 62 mmHg 60 bpm 14 rpm 97.7 F 179 lbs 75 in 22.3732 kg/m 2.0728 m 97 % 02/28/2016 8:31:00 AM 138 mmHg 64 mmHg 59 bpm 18 rpm 97.5 F 206 lbs 76 in 25.07 kg/m2 2.24 m2 97 % 11/24/2014 10:51:00 AM 132 mmHg 64 mmHg 92 bpm 18 rpm 98.4 F 218 lbs 76 in 26.54 kg/m2 2.30 m2 97 % 03/07/2012 9:17:00 AM 136 mmHg 64 mmHg 64 bpm 18 rpm 205.5 lbs 76 in 25.014 kg/m 2.2357 m 02/09/2011 9:32:00 AM 128 mmHg 68 mmHg 70 bpm 18 rpm 98.2 F 204 lbs 12/23/2010 3:42:00 PM 144 mmHg 80 mmHg 72 bpm 16 rpm 98.4 F 212 lbs 96 % 12/12/2010 3:50:00 PM 150 mmHg 62 mmHg 67 bpm 18 rpm 97.9 F 213 lbs 98 % 11/10/2010 3:33:00 PM 140 mmHg 68 mmHg 70 bpm 16 rpm 97.9 F 213 lbs 07/16/2010 10:16:00 AM 126 mmHg 62 mmHg 60 bpm 18 rpm 97.2 F 211 lbs 02/10/2010 10:40:00 AM 138 mmHg 70 mmHg 72 bpm 16 rpm 97.8 F 219 lbs 11/27/2009 3:22:00 PM 156 mmHg 78 mmHg 72 bpm 20 rpm 97.2 F 223 lbs 76 in 27.1441 kg/m 2.3289 m 10/14/2009 10:30:00 AM 185 mmHg 82 mmHg 78 bpm 18 rpm 97.6 F 226.312 lbs 09/20/2009 9:19:00 AM 140 mmHg 68 mmHg 56 bpm 20 rpm 97.8 F 224 lbs 09/02/2009 2:51:00 PM 138 mmHg 70 mmHg 66 bpm 18 rpm 97.1 F 219 lbs 76 in 26.6572 kg/m 2.308 m Social History Name Description Comments No Alcohol Use No Tobacco Use History of Procedures Date Ordered Description Order Status 10/14/2009 12:00 AM DXA BONE DENSITY AXIAL Reviewed 03/07/2012 12:00 AM THER/PROPH/DIAG INJ SC/IM Reviewed 03/07/2012 12:00 AM Decadron 1 mg [facility]#[id number] (Donavon) Reviewed 03/07/2012 12:00 AM Depo-Medrol 80 mg [facility]#[id number]-Hjbsas te Reviewed 11/27/2009 12:00 AM ELECTROCARDIOGRAM COMPLETE Reviewed 03/14/2018 12:00 AM ASSAY OF PSA TOTAL Reviewed 12/21/2018 12:00 AM ASSAY OF PSA TOTAL Reviewed 09/20/2009 12:00 AM TDAP VACCINE 7 [...] Risk 12/22/2018 8:45 PM PSA TOTAL <0.06 History Of Immunizations Name Date Admin Mfg Name Mfg Code Trade Name Lot# Route Inj Vis Given Vis Pub CVX Tdap 09/20/2009 [employer] SKB BOOSTRIX [id number] Intramuscular Left Deltoid 09/20/2009 05/24/2008 999 History [...] 4:37PM Prostate cancer Dec 23 2018 1:20PM Payers Insurance Name Company Name Plan Name Plan Number Policy Number Michael cy Group Number Start Date Medicare Part B Medicare [place] [id number] Friday, 1999 [facility] [id number] 2009 History of Encounters Visit Date Visit Type Provider 12/23/2018 Office visit Gregorio Knott MD 06/20/2018 Office visit Gregorio Knott MD 03/14/2018 Office visit Gregorio Knott MD 03/03/2018 Office visit Tutu Reese DO 02/20/2018 Hospital John Montilla MD 02/20/2018 [facility] Skip Burns MD 11/10/2017 Office visit V Natasha Marti MD 07/13/2017 Office visit V Natasha Marti MD 03/10/2017 Office visit V Natasha Marti MD 11/05/2016 Office visit V Natasha Marti MD 07/06/2016 Office visit V Natasha Marti MD 02/28/2016 Office visit V Natasha Marti MD 10/22/2015 Office visit V Natasha Marti MD 06/21/2015 Office visit V Natasha Marti MD 03/11/2015 Hospital John Montilla MD 02/20/2015 Office visit V Natasha Marti MD 11/24/2014 Office visit Wendy Ortega KITCHEN CHEF 10/16/2014 Office visit V Natasha Marti MD 06/12/2014 Office visit V Natasha Marti MD 03/07/2012 Office visit Katlyn Michael KITCHEN CHEF 08/13/2011 [facility] Marcial Toledo MD 08/12/2011 [facility] Marcial Toledo MD 07/20/2011 [facility] Sangita Ibrahim MD 07/19/2011 [facility] Sangita Ibrahim MD 05/07/2011 Hospital John Montilla MD 03/30/2011 [facility] John Montilla MD 02/09/2011 Office visit George Donavon DO 12/23/2010 Office visit George Donavon DO 12/12/2010 Office visit Katlyn Michael KITCHEN CHEF 11/10/2010 Office visit George Donavon DO 07/16/2010 Office visit George Donavon DO 02/10/2010 Office visit George Donavon DO 11/27/2009 Office visit Carmen MALIK 11/27/2009 Laboratory Nicholas Munguia MD 10/14/2009 Office visit George Donavon DO 09/20/2009 Office visit George Donavon DO 09/02/2009 Office visit George Donavon DO 05/17/2009 Nurse visit George Donavon DO 05/03/2009 Office visit George Donavon DO 05/01/2009 Laboratory Nicholas Munguia MD
--- OUTSIDE RECORDS SUMMARY | 2019-11-18 22:29 | XMS REPORT ---
Author Author Meeta Knott Organization [facility] Address [address] [place] [id number] Care Team Providers Care Clinical Transplant Coordinator Name Role Phone Gregorio Knott PCP Allergies and Adverse Reactions Name Reaction Notes fentanyl Phenergan Plan of Treatment Planned Activity Comments Planned Date Planned Time Plan/Goal PSA TOTAL 03/02/2017 12:00 AM PSA TOTAL 06/20/2018 12:00 AM Medications Active Name Start Date [...] Reviewed 03/07/2012 12:00 AM Decadron 1 mg [facility]#[id number] (Donavon) Reviewed 03/07/2012 12:00 AM Depo-Medrol 80 mg [facility]#[id number]-Ookvdc te Reviewed 11/27/2009 12:00 AM ELECTROCARDIOGRAM COMPLETE Reviewed 03/14/2018 12:00 AM ASSAY OF PSA TOTAL Reviewed 12/21/2018 12:00 AM ASSAY OF PSA TOTAL Reviewed 12/23/2018 12:00 AM URINALYSIS AUTO W/SCOPE Returned 09/20/2009 12:00 AM TDAP VACCINE 7 YRS/> [...] Vis Given Vis Pub CVX Tdap 09/20/2009 [employer] SKB BOOSTRIX [id number] Intramuscular Left Deltoid 09/20/2009 05/24/2008 999 History [...] Date Medicare Part B Medicare [place] [id number] Friday, [id number] History of Encounters Visit Date Visit Type Provider 12/23/2018 Office visit Gregorio Knott MD 06/20/2018 Office visit Gregorio Knott MD 03/14/2018 Office visit Gregorio Knott MD 03/03/2018 Office visit Tutu Reese DO 02/20/2018 Hospital John Montilla MD 02/20/2018 [facility] Skip Burns MD 11/10/2017 Office [...] Marti MD 11/24/2014 Office visit Wendy Ortega SET STAFF FITTER 10/16/2014 Office visit V Natasha Marti MD 06/12/2014 Office visit V Natasha Marti MD 03/07/2012 Office visit Katlyn Michael SET STAFF FITTER 08/13/2011 [facility] Marcial Toledo MD 08/12/2011 [facility] Marcial Toledo MD 07/20/2011 [facility] Sangita Ibrahim MD 07/19/2011 [facility] Sangita Ibrahim MD 05/07/2011 Hospital John Montilla MD 03/30/2011 [facility] John Montilla MD 02/09/2011 Office visit George Donavon DO 12/23/2010 Office visit George Donavon DO 12/12/2010 Office visit Katlyn Michael SET STAFF FITTER 11/10/2010 Office visit George Donavon DO 07/16/2010 [...]
--- OUTSIDE RECORDS SUMMARY | 2019-11-18 22:30 | XMS REPORT ---
Author Author Meeta Knott Organization [facility] Address [address] [place] [id number] Care Team Providers Care Events Solutions Consultant Name Role Phone Gregorio Knott PCP Allergies [...] first food, beverage, or medication of day Eliquis 5 mg oral tablet take 1 tablet (5 mg) by oral route 2 times per day Name Start Date Expiration Date SIG [...] 6 hours as needed for 7 days Discontinued Name Start Date Discontinued Date [...] HC BMI BSA BMI Percentile O2 Sat(%) 06/20/2018 1:22:00 PM 128 mmHg 72 mmHg 66 bpm 16 rpm 97.7 F 185.375 lbs 75 in 23.17 kg/m 2.1094 m 97 % 03/14/2018 10:11:00 AM 142 mmHg 62 mmHg 60 bpm 14 rpm 97.7 F 179 lbs 75 in 22.37 kg/m2 2.07 m2 97 % 02/28/2016 8:31:00 AM 138 mmHg 64 mmHg 59 bpm 18 rpm 97.5 F 206 lbs 76 in 25.0748 kg/m 2.2384 m 97 % 11/24/2014 10:51:00 AM 132 mmHg [...] 03/07/2012 12:00 AM Decadron 1 mg [facility]#[id number] (Donavon) Reviewed 03/07/2012 12:00 AM Depo-Medrol 80 mg [facility]#[id number]-Waqjsl te Reviewed 11/27/2009 12:00 AM ELECTROCARDIOGRAM COMPLETE [...] >60 06/15/2018 11:18 AM PSA TOTAL <0.06 History Of Immunizations Name Date Admin Mfg Name Mfg Code Trade Name Lot# Route Inj Vis Given Vis Pub CVX Tdap 09/20/2009 [employer] SKB BOOSTRIX [id number] Intramuscular Left Deltoid 09/20/2009 05/24/2008 999 History [...] 10:14AM Prostate cancer Jun 20 2018 1:24PM Payers Insurance Name Company Name Plan Name Plan Number Policy Number Michael cy Group Number Start Date Medicare Part B Medicare Of [place] [id number] Friday, [id number] 2009 History of Encounters Visit Date Visit Type Provider 06/20/2018 Office visit Gregorio Knott MD 03/14/2018 Office visit Gregorio Knott MD 03/03/2018 Office visit Tutu Reese DO 02/20/2018 [facility]illa MD 02/20/2018 [facility] Skip Burns MD 11/10/2017 Office visit Jareth Marti MD 07/13/2017 Office visit Jareth Marti MD 03/10/2017 Office visit Jareth Marti MD 11/05/2016 Office visit Jareth Marti MD 07/06/2016 Office visit Jareth Marti MD 02/28/2016 Office visit Jareth Marti MD 10/22/2015 Office visit Jareth Marti MD 06/21/2015 Office visit Jareth Marti MD 03/11/2015 [facility] John Montilla MD 02/20/2015 Office visit Jareth Marti MD 11/24/2014 Office visit Wendy Ortega SADDLE STITCH OPERATOR 10/16/2014 Office visit Jareth Marti MD 06/12/2014 Office visit Jareth Marti MD 03/07/2012 Office visit Katlyn Michael SADDLE STITCH OPERATOR 08/13/2011 [facility] Marcial Toledo MD 08/12/2011 [facility] Mar[facility] MD 07/20/2011 [facility] Sangita Ibrahim MD 07/19/2011 [facility] Sang[facility] Ibrahim MD 05/07/2011 [facility] John Montilla MD 03/30/2011 [facility] John Montilla MD 02/09/2011 Office visit George Donavon DO 12/23/2010 Office visit George Donavon DO 12/12/2010 Office visit Katlyn Michael SADDLE STITCH OPERATOR 11/10/2010 Office visit George Raphael DO 07/16/2010 Office visit George Donavon DO 02/10/2010 Office visit George Donvaon DO 11/27/2009 Office visit Carmen MALIK 11/27/2009 Laboratory Nicholas Munguia MD 10/14/2009 Office visit George Donavon DO 09/20/2009 Office visit George Donavon DO 09/02/2009 Office visit George Donavon DO 05/17/2009 Nurse visit George Donavon DO 05/03/2009 Office visit George Raphael DO 05/01/2009 Laboratory Nicholas Munguia MD
--- OUTSIDE RECORDS SUMMARY | 2019-11-18 22:30 | XMS REPORT ---
Author Author Meeta Knott Organization [facility] Address [address] [place] [id number] Care Team Providers Care Monument Setter Name Role Phone Gregorio Knott PCP Allergies [...] Reviewed 03/07/2012 12:00 AM Decadron 1 mg [facility]#[id number] (Donavon) Reviewed 03/07/2012 12:00 AM Depo-Medrol 80 mg [facility]#[id number]-Avwklx te Reviewed 11/27/2009 12:00 AM ELECTROCARDIOGRAM COMPLETE [...] falling? Yes Fall Risk Assessment At Risk History Of Immunizations Name Date Admin Mfg Name Mfg Code Trade Name Lot# Route Inj Vis Given Vis Pub CVX Tdap 09/20/2009 GlaxJobr SKB BOOSTRIX [id number] Intramuscular Left Deltoid 09/20/2009 05/24/2008 999 History [...] Risk for falls Aug 24 2018 2:08PM Payers Insurance Name Company Name Plan Name Plan Number Policy Number Michael cy Group Number Start Date Medicare Part B Medicare Of [place] [id number] Friday, 1999 [facility] [id number] 2009 History of Encounters Visit Date Visit Type Provider 06/20/2018 Office visit Gregorio Knott MD 03/14/2018 Office visit Gregorio Knott MD 03/03/2018 Office visit Tutu Reese DO 02/20/2018 [facility] John Montilla MD 02/20/2018 [facility] Skip Burns MD 11/10/2017 Office visit Jareth Marti MD 07/13/2017 Office visit Jareth Marti MD 03/10/2017 Office visit Jareth Marti MD 11/05/2016 Office visit Jareth Marti MD 07/06/2016 Office visit Jareth Marti MD 02/28/2016 Office visit Jareth Marti MD 10/22/2015 Office visit V Natasha Marti MD 06/21/2015 Office visit Jareth Marti MD 03/11/2015 Hospital John Montilla MD 02/20/2015 Office visit Jareth Marti MD 11/24/2014 Office visit Wendy Ortega DEWATERER OPERATOR 10/16/2014 Office visit Jareth Marti MD 06/12/2014 Office visit Jareth Marti MD 03/07/2012 Office visit Katlyn Michael DEWATERER OPERATOR 08/13/2011 Hospital Marcial Toledo MD 08/12/2011 [facility] Marcial Toledo MD 07/20/2011 [facility] Sangita Ibrahim MD 07/19/2011 [facility] Sangita Ibrahim MD 05/07/2011 [facility] Jonh Montilla MD 03/30/2011 [facility] John Montilla MD 02/09/2011 Office visit George Raphael DO 12/23/2010 Office visit George Raphael DO 12/12/2010 Office visit Katlyn Michael DEWATERER OPERATOR 11/10/2010 Office visit George Raphael DO [...]
--- OUTSIDE RECORDS SUMMARY | 2019-11-18 22:30 | XMS REPORT ---
Author Author Meeta Knott Organization [facility] Address [address] [place] [id number] Care Team Providers Care Soil Expert Name Role Phone Gregorio Knott PCP Allergies and Adverse Reactions Name Reaction Notes fentanyl Phenergan Plan of Treatment Planned Activity Comments Planned Date Planned Time Plan/Goal PSA TOTAL 03/02/2017 12:00 AM PSA TOTAL 06/20/2018 12:00 AM PSA TOTAL 12/21/2018 12:00 AM Medications Active Name Start Date [...] Reviewed 03/07/2012 12:00 AM Decadron 1 mg [facility]#[id number] (Donavon) Reviewed 03/07/2012 12:00 AM Depo-Medrol 80 mg [facility]#[id number]-Qzvkpx te Reviewed 11/27/2009 12:00 AM ELECTROCARDIOGRAM COMPLETE [...] Vis Given Vis Pub CVX Tdap 09/20/2009 GlaxSage [employer] SKB BOOSTRIX [id number] Intramuscular Left Deltoid 09/20/2009 05/24/2008 999 History [...] 2:08PM Prostate CA Dec 21 2018 4:37PM Payers Insurance Name Company Name Plan Name Plan Number Policy Number Michael cy Group Number Start Date Medicare Part B Medicare Of [place] [id number] Friday, 1999 [facility] [id number] 2009 History of Encounters Visit Date Visit Type Provider 06/20/2018 Office visit Gregorio Knott MD 03/14/2018 Office visit Gregorio Knott MD 03/03/2018 Office visit Tutu Resee DO 02/20/2018 [facility] John Montilla MD 02/20/2018 [facility] Skip Burns MD 11/10/2017 Office visit Jareth Marti MD 07/13/2017 Office visit Jareth Marti MD 03/10/2017 Office visit V Natasha Marti MD 11/05/2016 Office visit V Natasha Marti MD 07/06/2016 Office visit V Natasha Marti MD 02/28/2016 Office visit V Natasha Marti MD 10/22/2015 Office visit V Natasha Marti MD 06/21/2015 Office visit V Natasha Marti MD 03/11/2015 [facility] John Montilla MD 02/20/2015 Office visit V Natasha Marti MD 11/24/2014 Office visit Wendy Ortega BED SETTER 10/16/2014 Office visit V Natasha Marti MD 06/12/2014 Office visit V Natasha Marti MD 03/07/2012 Office visit Katlyn Michael BED SETTER 08/13/2011 Hospital Marcial Toledo MD 08/12/2011 [facility] Marcial Toledo MD 07/20/2011 Hospital Sangita Ibrahim MD 07/19/2011 [facility] Sangita Ibrahim MD 05/07/2011 [facility] John Montilla MD 03/30/2011 [facility] John Montilla MD 02/09/2011 Office visit George Raphael DO 12/23/2010 Office visit George Raphael DO 12/12/2010 Office visit Katlyn Michael BED SETTER 11/10/2010 Office visit George Donavon DO 07/16/2010 [...]
--- OUTSIDE RECORDS SUMMARY | 2019-11-18 22:30 | XMS REPORT ---
Author Author Meeta Knott Organization [facility] Address [address] [place] [id number] Care Team Providers Care Process Machine Operator Name Role Phone Gregorio Knott PCP Allergies [...] 03/07/2012 12:00 AM Decadron 1 mg [facility]#[id number] (Donavon) Reviewed 03/07/2012 12:00 AM Depo-Medrol 80 mg [facility]#[id number]-Nlbyag te Reviewed 11/27/2009 12:00 AM ELECTROCARDIOGRAM COMPLETE [...] Vis Given Vis Pub CVX Tdap 09/20/2009 Glax[employer] Futuroine SKB BOOSTRIX [id number] Intramuscular Left Deltoid 09/20/2009 05/24/2008 999 History [...] Date Medicare Part B Medicare [place] [id number] Friday, 1999 BCBS [facility] [id number] 2009 History of Encounters Visit Date Visit Type Provider 06/20/2018 Office visit Gregorio Knott MD 03/14/2018 Office visit Gregorio Knott MD 03/03/2018 Office visit Tutu Reese DO 02/20/2018 [facility] John Montilla MD 02/20/2018 [facility] Skip Burns MD 11/10/2017 Office visit Jareth Marti MD 07/13/2017 Office visit Jareth Marti MD 03/10/2017 Office visit V Natasha Marti MD 11/05/2016 Office visit V Natasha Marti MD 07/06/2016 Office visit V Natasha Marti MD 02/28/2016 Office visit V Natasha Marti MD 10/22/2015 Office visit V Natasha Marti MD 06/21/2015 Office visit V Natasha Marti MD 03/11/2015 [facility] John Montilla MD 02/20/2015 Office visit V Natasha Marti MD 11/24/2014 Office visit Wendy Ortega ASSISTANT SITE MANAGER 10/16/2014 Office visit V Natasha Marti MD 06/12/2014 Office visit V Natasha Marti MD 03/07/2012 Office visit Katlyn Michael ASSISTANT SITE MANAGER 08/13/2011 Hospital Marcial Toledo MD 08/12/2011 [facility] Marcial Toledo MD 07/20/2011 Hospital Sangita Ibrahim MD 07/19/2011 [facility] Sangita Ibrahim MD 05/07/2011 [facility] John Montilla MD 03/30/2011 [facility] John Montilla MD 02/09/2011 Office visit George Raphael DO 12/23/2010 Office visit George Raphael DO 12/12/2010 Office visit Katlyn Michael ASSISTANT SITE MANAGER 11/10/2010 Office visit George Donavon DO 07/16/2010 [...]
--- OUTSIDE RECORDS SUMMARY | 2019-11-18 22:31 | XMS REPORT ---
Author Author Meeta Knott Organization [facility] Address [address] [place] [id number] Care Team Providers Care Studio Assistant Name Role Phone Gregorio Knott PCP Allergies and Adverse Reactions Name Reaction Notes fentanyl Phenergan Plan of Treatment Planned Activity Comments Planned Date Planned Time Plan/Goal PSA TOTAL 03/02/2017 12:00 AM PSA TOTAL 03/14/2018 12:00 AM Medications Active Name Start Date [...] route daily aspirin 81 mg oral tablet Azopt 1 % ophthalmic drops,suspension Vitamin D3 2,000 unit oral tablet take 1 tablet by oral route daily levothyroxine 100 mcg oral tablet 03/02/2018 TAKE 1 TABLET BY MOUTH DAILY furosemide 40 mg oral tablet 03/02/2018 TAKE 1 TABLE T BY MOUTH DAILY sotalol 80 mg oral tablet 03/02/2018 TAKE 1 TABLET B Y MOUTH TWICE DAILY glimepiride 2 mg oral tablet 03/02/2018 YESSI E 1 TABLET BY MOUTH DAILY WITH A MEAL amlodipine 10 mg oral tablet 03/02/2018 TAKE 1 TABLE T BY MOUTH DAILY tramadol 50 mg oral tablet 03/02/2018 04/06/2018 take 1 tablet (50 mg) by oral route every 6 hours as needed for 7 days metformin 1,000 mg oral tablet 03/02/2018 TAKE 1 TAB LET BY MOUTH TWICE DAILY lisinopril 10 mg oral tablet 03/02/2018 TAKE 1 TABLE T BY MOUTH DAILY bicalutamide 50 mg oral tablet 03/07/2018 TAKE 1 TAB LET BY MOUTH DAILY Name Start Date Expiration Date SIG Comments [...] oral route once daily x 5 days Discontinued Name Start Date Discontinued [...] (50 mg) by oral route once daily hyoscyamine sulfate 0.125 mg oral tablet 09/02/2009 [...] TAKE 1 CAPSULE BY MOUTH TWICE DAILY Problem List Description Status Onset Diabetes Mellitus, Type II Active Hypertension Active Adenocarcinoma of prostate Active 10/16/2014 Cancer of prostate Active 02/20/2015 Vital Signs Date Time BP-Sys(mm[Hg] BP-Thuy(mm[Hg]) HR(bpm) RR(rpm) Temp WT HT HC BMI BSA BMI Percentile O2 Sat(%) 03/14/2018 10:11:00 AM 142 mmHg 62 mmHg [...] Reviewed 03/07/2012 12:00 AM Decadron 1 mg [facility]#[id number] (Donavon) Reviewed 03/07/2012 12:00 AM Depo-Medrol 80 mg [facility]#[id number]-Fyqpsv te Reviewed 11/27/2009 12:00 AM ELECTROCARDIOGRAM COMPLETE Reviewed 09/20/2009 12:00 AM TDAP VACCINE 7 [...] 114 eGFR >60 mL/min/1.73 m2eGFR AA* >60 History Of Immunizations Name Date Admin Mfg Name Mfg Code Trade Name Lot# Route Inj Vis Given Vis Pub CVX Tdap 09/20/2009 [email or web address] SKB BOOSTRIX [id number] Intramuscular Left Deltoid 09/20/2009 05/24/2008 999 History [...] 2009 10:38AM Osteoporosis Irritable bowel syndrome Hypothyroidism, Acquired GERD Special investigations and examinations; other specified [...] 9:51AM Prostate cancer Mar 14 2018 10:14AM Payers Insurance Name Company Name Plan Name Plan Number Policy Number Michael cy Group Number Start Date Medicare Part B Medicare Of [place] [id number] Friday, 2000 [facility] [id number] 2009 History of Encounters Visit Date Visit Type Provider 03/14/2018 Office visit Gregorio Knott MD 03/03/2018 Office visit Tutu Reese DO 02/20/2018 [facility] Skip Burns MD 11/10/2017 Office visit V [...] Marti MD 11/24/2014 Office visit Wendy Ortega SIGNAL INSPECTOR 10/16/2014 Office visit V Natasha Marti MD 06/12/2014 Office visit V Natasha Marti MD 03/07/2012 Office visit Katlyn Michael SIGNAL INSPECTOR 08/13/2011 Hospital Marcial Toledo MD 08/12/2011 [facility] Marcial Toledo MD 07/20/2011 [facility] Sangita Ibrahim MD 07/19/2011 Hospital Sangita Ibrahim MD 05/07/2011 Hospital John Montilla MD 03/30/2011 [facility] John Montilla MD 02/09/2011 Office visit George Donavon DO 12/23/2010 Office visit George Donavon DO 12/12/2010 Office visit Katlyn Michael SIGNAL INSPECTOR 11/10/2010 Office visit George Donavon DO 07/16/2010 [...]
--- OUTSIDE RECORDS SUMMARY | 2019-11-18 22:31 | XMS REPORT ---
Author Author Meeta Marti Organization [facility] Address [address] [place], [place] [id number] Care Team Providers Care Laborer High Density Press Name Role Phone Jareth Marti PCP Unavailable Allergies and Adverse Reactions Name Reaction Notes NO KNOWN DRUG ALLERGIES Plan of Treatment Planned Activity Comments Planned Date Planned Time Plan/Goal PSA TOTAL 03/02/2017 12:00 AM Medications Active Name Start Date Estimated Completion Date SIG Co mments Fosamax 70 mg oral tablet take 1 tablet (70 mg) by oral route once weekly in the morning, at least 30 minutes before the first food, beverage, or medication of the day levothyroxine 100 mcg oral tablet take 1 tablet (100 mcg) by oral route once daily furosemide 40 mg oral tablet take 1 table t (40 mg) by oral route once daily Casodex 50 mg oral tablet take 1 tablet ( 50 mg) by oral route once daily Klor-Con 10 10 mEq oral tablet extended release take 4 tablets (40 meq) by oral route daily calcium carbonate 500 mg calcium (1,250 mg) oral tablet take 1 tablet by oral route daily metformin 1,000 mg oral tablet t ulisses 1 tablet (1,000 mg) by oral route 2 times per day with morning and evening meals lisinopril 10 mg oral tablet take 1 table t (10 mg) by oral route once daily amlodipine 10 mg oral tablet take 1 table t (10 mg) by oral route once daily Fiber Therapy Oral 625mg 2 daily Vitamin C 1,000 mg oral tablet take 1 tab let by oral route daily aspirin 81 mg oral tablet hyoscyamine sulfate 0.125 mg oral tablet 09/02/2009 take 1 tablet by oral route 2 times a day Azopt 1 % ophthalmic drops,suspension Spectazole 1 % topical cream 02/10/2010 stella ly to the affected and surrounding areas of skin by topical route 2 times per day Vitamin D3 2,000 unit oral tablet take 1 tablet by oral route daily meloxicam 15 mg oral tablet 12/23/2010 take 1 tablet (15 mg) by oral route once daily metoclopramide HCl 10 mg oral tablet 02/09/2011 take 1 tablet by oral route 3 times a day fentanyl 12 mcg/hr transdermal patch 72 hour 05/02/2011 apply 1 patch (12 mcg/hour) by transdermal route every 72 hours Carafate 1 gram oral tablet 05/02/2011 take 1 tablet by oral route 3 times a day Name Start Date Expiration Date SIG [...] Name Start Date Discontinued Date SIG Comments omeprazole 20 mg oral capsule,delayed release(DR/EC) 05/02/2011 take 1 capsule (20 mg) by oral route once daily before a meal Decreased appetite and metal taste in mouth Keflex 500 mg oral capsule 02/10/2010 07/16/2010 take 1 capsule (500 mg) by oral route every 12 hours Levaquin 750 mg oral tablet 12/12/2010 12/15/2010 take 1 tablet (750 mg) by oral route once daily for 7 days Augmentin 875-125 mg oral tablet 12/15/2010 12/23/2010 take 1 tablet by oral route every 12 hours for 10 days Zofran (as hydrochloride) 8 mg oral tablet 05/02/20112014 take 1 tablet by oral route every 6 hours as needed Problem List Description Status Onset Diabetes Mellitus, Type II Active Hypertension Active Adenocarcinoma of prostate Active 10/16/2014 Cancer of prostate Active 02/20/2015 Vital Signs Date Time BP-Sys(mm[Hg] BP-Thuy(mm[Hg]) HR(bpm) RR(rpm) Temp WT HT HC BMI BSA BMI Percentile O2 Sat(%) 02/28/2016 8:31:00 AM 138 mmHg 64 mmHg 59 bpm 18 rpm 97.5 F 206 lbs 76 in 25.07 kg/m2 2.24 m2 97 % 11/24/2014 10:51:00 AM 132 mmHg 64 mmHg 92 bpm 18 rpm 98.4 F 218 lbs 76 in 26.5355 kg/m 2.3027 m 97 % 03/07/2012 9:17:00 AM 136 mmHg 64 mmHg 64 bpm 18 rpm 205.5 lbs 76 in 25.01 kg/m2 2.24 m2 02/09/2011 9:32:00 AM 128 mmHg 68 mmHg [...] rpm 97.1 F 219 lbs 76 in 26.66 kg/m2 2.31 m2 Social History Name Description Comments No Alcohol Use No Tobacco Use History of Procedures Date Ordered Description Order Status 10/14/2009 12:00 AM DXA BONE DENSITY AXIAL Reviewed 03/07/2012 12:00 AM THER/PROPH/DIAG INJ SC/IM Reviewed 03/07/2012 12:00 AM Decadron 1 mg [facility]#[id number] (Donavon) Reviewed 03/07/2012 12:00 AM Depo-Medrol 80 mg [facility]#[id number]-Msgadq te Reviewed 11/27/2009 12:00 AM ELECTROCARDIOGRAM COMPLETE [...] 114 eGFR >60 mL/min/1.73 m2eGFR AA* >60 04/13/2011 7:30 AM WBC 8.3 RBC 3.33 HGB 10.70 g /dLHCT 34.50 %MCV 104.0 fLMCH 32.10 pgMCHC 31.0 g/dLRDW SD 58 RDW CV 15.60 %MPV 9.50 fLPLT 573 NRBC# 0.00 NRBC% 0.0 %NEUT 74.40 %%LYMP 16.40 %%MONO 7.30 %%EOS 1.40 %%BASO 0.50 %#NEUT 6.18 #LYMP 1.36 #MONO 0.61 #EOS 0.12 #BASO 0.04 MANUAL DIFF NOT IND GLUCOSE 117.0 mg/dLSODIUM 138.0 mmol/LPOTASSIUM 3.80 mmol/LCHLORIDE 107.0 mmol/LCO2 22.0 mmol/LBUN 10.0 mg/dLCREATININE 0.60 mg/dLSGOT/AST 17.0 IU/LSGPT/ALT 19.0 IU/LALK PHOS 204.0 IU/LTOTAL PROTEIN 5.40 g/dLALBUMIN 3.10 g/dLTOTAL BILI 0.80 mg/dLCALCIUM 8.40 mg/dLAGE 75 GFR NonAA 131 GFR AA 159 eGFR >60 mL/min/1.73 m2eGFR AA* >60 04/18/2011 11:00 AM OCC BLD STOOL NEGATIVE 04/20/2011 7:00 AM WBC 8.9 RBC 3.90 HGB 12.60 g /dLHCT 40.20 %MCV 103.0 fLMCH 32.30 pgMCHC 31.30 g/dLRDW SD 54 RDW CV 14.40 %MPV 9.90 fLPLT 499 NRBC# 0.00 NRBC% 0.0 %NEUT 77.50 %%LYMP 14.10 %%MONO 7.40 %%EOS 0.70 %%BASO 0.30 %#NEUT 6.91 #LYMP 1.26 #MONO 0.66 #EOS 0.06 #BASO 0.03 MANUAL DIFF NOT IND GLUCOSE 107.0 mg/dLSODIUM 140.0 mmol/LPOTASSIUM 4.70 mmol/LCHLORIDE 106.0 mmol/LCO2 23.0 mmol/LBUN 11.0 mg/dLCREATININE 0.70 mg/dLSGOT/AST 19.0 IU/LSGPT/ALT 20.0 IU/LALK PHOS 279.0 IU/LTOTAL PROTEIN 5.40 g/dLALBUMIN 3.40 g/dLTOTAL BILI 0.80 mg/dLCALCIUM 8.80 mg/dLAGE 75 GFR NonAA 110 GFR AA 133 eGFR >60 mL/min/1.73 m2eGFR AA* >60 TRIGLYCERIDES 119.0 mg/dLCHOLESTEROL 139.0 mg/dLHDL 30.0 mg/dLTOT CHOL/HDL 4.6 LDL (CALC) 85.0 mg/dLGLYCOHEMOGLOBIN A1C 4.50 % 04/20/2011 12:49 PM OCC BLD STOOL NEGATIVE 04/20/2011 2:53 PM OCC BLD STOOL NEGATIVE 04/27/2011 6:50 AM WBC 6.0 RBC 4.06 HGB 13.10 g /dLHCT 42.10 %MCV 104.0 fLMCH 32.30 pgMCHC 31.10 g/dLRDW SD 52 RDW CV 13.70 %MPV 10.40 fLPLT 298 NRBC# 0.00 NRBC% 0.0 %NEUT 61.40 %%LYMP 26.50 %%MONO 9.20 %%EOS 2.20 %%BASO 0.70 %#NEUT 3.70 #LYMP 1.59 #MONO 0.55 #EOS 0.13 #BASO 0.04 MANUAL DIFF NOT IND PREALBUMIN 18.0 mg/dL 05/04/2011 6:55 AM WBC 7.6 RBC 4.16 HGB 13.40 g /dLHCT 42.10 %MCV 101.0 fLMCH 32.20 pgMCHC 31.80 g/dLRDW SD 48 RDW CV 13.10 %MPV 10.40 fLPLT 310 NRBC# 0.00 NRBC% 0.0 %NEUT 71.20 %%LYMP 19.0 %%MONO 8.0 %%EOS 1.40 %%BASO 0.40 %#NEUT 5.42 #LYMP 1.45 #MONO 0.61 #EOS 0.11 #BASO 0.03 MANUAL DIFF NOT IND 05/11/2011 7:30 AM WBC 6.8 RBC 4.06 HGB 13.30 g /dLHCT 39.80 %MCV 98.0 fLMCH 32.80 pgMCHC 33.40 g/dLRDW SD 46 RDW CV 12.80 %MPV 10.80 fLPLT 368 NRBC# 0.00 NRBC% 0.0 %NEUT 60.30 %%LYMP 30.30 %%MONO 7.50 %%EOS 1.30 %%BASO 0.60 %#NEUT 4.08 #LYMP 2.05 #MONO 0.51 #EOS 0.09 #BASO 0.04 MANUAL DIFF NOT IND FERRITIN 122.0 ng/mL History Of Immunizations Name Date Admin Mfg Name Mfg Code Trade Name Lot# Route Inj Vis Given Vis Pub CVX Tdap 09/20/2009 [employer] SKB BOOSTRIX [id number] Intramuscular Left Deltoid 09/20/2009 05/24/2008 999 History [...] 11:10AM Drug therapy Mar 02 2017 11:10AM Payers Insurance Name Company Name Plan Name Plan Number Policy Number Michael cy Group Number Start Date Medicare Part B Medicare Of [place] [id number] Friday, 2000 [facility] [id number] 2009 History of Encounters Visit Date Visit Type Provider 11/05/2016 Office visit Jareth Marti MD 07/06/2016 Office visit Jareth Marti MD 02/28/2016 Office visit Jareth Marti MD 10/22/2015 Office visit Jareth Marti MD 06/21/2015 Office visit Jareth Marti MD 03/11/2015 [facility] John Montilla MD 02/20/2015 Office visit Jareth Marti MD 11/24/2014 Office visit Wendy Ortega APRN 10/16/2014 Office visit Jareth Marti MD 06/12/2014 Office visit V Natasha Marti MD 03/07/2012 Office visit Katlyn Michael TAR AND AMMONIA PUMP OPERATOR 08/13/2011 Hospital Marcial Toledo MD 08/12/2011 [facility] Marcial Toledo MD 07/20/2011 Hospital Sangita Ibrahim MD 07/19/2011 [facility] Sangita Ibrahim MD 05/07/2011 [facility] John Montilla MD 03/30/2011 [facility] John Montilla MD 02/09/2011 Office visit George Donavon DO 12/23/2010 Office visit George Donavon DO 12/12/2010 Office visit Katlyn Michael TAR AND AMMONIA PUMP OPERATOR 11/10/2010 Office visit George Raphael DO 07/16/2010 Office visit George Donavon DO 02/10/2010 Office visit George Donavon DO 11/27/2009 Office visit Carmen MALIK 11/27/2009 Laboratory Nicholas Munguia MD 10/14/2009 Office visit George Raphael DO 09/20/2009 Office visit George Donavon DO 09/02/2009 Office visit George Donavon DO 05/17/2009 Nurse visit George Donavon DO 05/03/2009 Office visit George Raphael DO 05/01/2009 Laboratory Nicholas Munguia MD
--- OUTSIDE RECORDS SUMMARY | 2019-11-18 22:31 | XMS REPORT ---
Author Author Meeta Marti Organization [facility] Address [address] [place], [place] [id number] Care Team Providers Care Body Joiner Name Role Phone Jareth Marti PCP Unavailable [...] Reviewed 03/07/2012 12:00 AM Decadron 1 mg [facility]#[id number] (Donavon) Reviewed 03/07/2012 12:00 AM Depo-Medrol 80 mg [facility]#[id number]-Uynrix te Reviewed 11/27/2009 12:00 AM ELECTROCARDIOGRAM COMPLETE [...] Reviewed Results Summary Date and Description Results 12/12/2010 5:50 PM GLYCOHEMOGLOBIN A1C 5.70 %WB [...] Vis Given Vis Pub CVX Tdap 09/20/2009 [employer] SKB BOOSTRIX [id number] Intramuscular Left Deltoid 09/20/2009 05/24/2008 999 History [...] Adenocarcinoma of prostate Jul 13 2017 7:57AM Payers Insurance Name Company Name Plan Name Plan Number Policy Number Michael cy Group Number Start Date Medicare Part B Medicare Of [place] [id number] Friday, 2000 [id number] 2009 History of Encounters Visit Date Visit Type Provider 07/13/2017 Office visit V Natasha Marti MD 03/10/2017 Office visit V Natasha Marti MD 11/05/2016 Office visit V Natasha Marti MD 07/06/2016 Office visit V Natasha Marti MD 02/28/2016 Office visit V Natasha Marti MD 10/22/2015 Office visit V Natasha Marti MD 06/21/2015 Office visit V Natasha Marti MD 03/11/2015 [facility] John Montilla MD 02/20/2015 Office visit V Natasha Marti MD 11/24/2014 Office visit Wendy Ortega SEWER BUILDER 10/16/2014 Office visit V Natasha Marti MD 06/12/2014 Office visit V Natasha Marti MD 03/07/2012 Office visit Katlyn Michael SEWER BUILDER 08/13/2011 Hospital Marcial Toledo MD 08/12/2011 Hospital Marcial Toledo MD 07/20/2011 Hospital Sangita Ibrahim MD 07/19/2011 Hospital Sangita Ibrahim MD 05/07/2011 Hospital John Montilla MD 03/30/2011 [facility] John Montilla MD 02/09/2011 Office visit [...]
--- OUTSIDE RECORDS SUMMARY | 2019-11-18 22:31 | XMS REPORT ---
Author Author [facility] ou Organization [facility] Address [address] [place], [place] [id number] Care Team Providers Care Cash Application Clerk Name Role Phone PCP Unavailable Allergies and Adverse Reactions Name Reaction Notes NO KNOWN DRUG ALLERGIES Plan of Treatment Not available. Medications Active Name Start Date Estimated Completion Date SIG Co mments Fosamax Oral Tablet 70 mg take 1 tablet (70 mg) by oral route once weekly in the morning, at least 30 minutes before the first food, beverage, or medication of the day Levothyroxine Oral Tablet 100 mcg take 1 tablet (100 mcg) by oral route once daily Furosemide Oral Tablet 40 mg take 1 table t (40 mg) by oral route once daily Casodex Oral Tablet 50 mg take 1 tablet ( 50 mg) by oral route once daily Klor-Con 10 Oral Tablet Sustained Release mEq take 4 tablets (40 meq) by oral route daily Calcium Carbonate Oral Tablet 500 mg (1,250 mg) take 1 tablet by oral route daily Metformin Oral Tablet 1,000 mg t ulisses 1 tablet (1,000 mg) by oral route 2 times per day with morning and evening meals Lisinopril Oral Tablet 10 mg take 1 table t (10 mg) by oral route once daily Amlodipine Oral Tablet 10 mg take 1 table t (10 mg) by oral route once daily Fiber Therapy Oral 625mg 2 daily Vitamin C Oral Tablet 1,000 mg take 1 tab let by oral route daily Aspirin Oral Tablet 81 mg Hyoscyamine Sulfate Oral Tablet 0.125 mg 09/02/2009 take 1 tablet by oral route 2 times a day Azopt Ophthalmic Drops, Suspension 1 % Spectazole Topical Cream 1 % 02/10/2010 stella ly to the affected and surrounding areas of skin by topical route 2 times per day Vitamin D-3 Oral Tablet 2,000 unit take 1 tablet by oral route daily Meloxicam Oral Tablet 15 mg 12/23/2010 take 1 tablet (15 mg) by oral route once daily metoclopramide Oral Tablet 10 mg 02/09/2011 take 1 tablet by oral route 3 times a day fentanyl Transdermal Patch 72 hr 12 mcg/hr 05/02/2011 apply 1 patch (12 mcg/hour) by transdermal route every 72 hours Carafate Oral Tablet 1 gram 05/02/2011 take 1 tablet by oral route 3 times a day Name Start Date Expiration Date SIG Comments Zithromax Z-Derrick Oral Tablet 250 mg 09/21/2009 10/01/2009 take 2 tablets (500 mg) by oral route once daily for 1 day then 1 tablet (250 mg) by oral route once daily for 4 days Levaquin Oral Tablet 500 mg 10/14/2009 10/21/2009 take 1 tablet (500 mg) by oral route once daily for 7 days Zithromax Z-Derrick Oral Tablet 250 mg 10/22/2010 11/01/2010 take 2 tablets (500 mg) by oral route once daily for 1 day then 1 tablet (250 mg) by oral route once daily for 4 days Bactrim DS Oral Tablet 800-160 mg 11/10/2010 11/17/2010 take 1 tablet by oral route every 12 hours for 7 days hydrocodone-acetaminophen Oral Tablet 5-325 mg 05/01/2011 take 1 tablet by oral route every 4 hours as needed for pain azithromycin oral tablet 500 mg 11/24/2014 11/29/2014 take 1 tablet (500 mg) by oral route once daily x 5 days Discontinued Name Start Date Discontinued Date SIG Comments Omeprazole Oral Capsule, Delayed Release(E.C.) 20 mg 05/02/2011 take 1 capsule (20 mg) by oral route once daily before a meal Decreased appetite and metal taste in mouth Keflex Oral Capsule 500 mg 02/10/2010 07/16/2010 take 1 capsule (500 mg) by oral route every 12 hours Levaquin Oral Tablet 750 mg 12/12/2010 12/15/2010 take 1 tablet (750 mg) by oral route once daily for 7 days Augmentin Oral Tablet 875-125 mg 12/15/2010 12/23/2010 take 1 tablet by oral route every 12 hours for 10 days Zofran Oral Tablet 8 mg 05/02/2011 11/24/2014 take 1 t ablet by oral route every 6 hours as needed Problem List Description Status Onset Diabetes Mellitus, Type II Active Hypertension Active Adenocarcinoma of prostate Active 10/16/2014 Cancer of prostate Active 02/20/2015 Vital Signs Date Time BP-Sys(mm[Hg] BP-Thuy(mm[Hg]) HR(bpm) RR(rpm) Temp WT HT HC BMI BSA BMI Percentile O2 Sat(%) 11/24/2014 10:51:00 AM 132 mmHg 64 mmHg [...] rpm 97.2 F 223 lbs 76 in 27.14 kg/m2 2.33 m2 10/14/2009 10:30:00 AM 185 mmHg 82 mmHg [...] 03/07/2012 12:00 AM THER/PROPH/DIAG INJ SC/IM Reviewed 11/27/2009 12:00 AM ELECTROCARDIOGRAM COMPLETE Reviewed [...] 06/12/2014 12:06 PM THER/PROPH/DIAG INJ SC/IM Reviewed 12/12/2010 12:00 AM COMPLETE CBC W/AUTO DIFF WBC Reviewed 12/12/2010 12:00 AM COMPREHEN METABOLIC PANEL Reviewed 12/12/2010 12:00 AM CHEST X-RAY 2VW FRONTAL&LATL Reviewed 12/12/2010 12:00 AM GLYCOSYLATED HEMOGLOBIN TEST Reviewed 02/09/2011 12:00 AM X-RAY EXAM OF ABDOMEN Reviewed Results Summary Data and Description Results 11/27/2009 4:41 PM Cholest Cry Stone Ql IR 0.0 %Colonoscopy-Women and Men over 50 Declined PSA SerPl-mCnc 0.0 ng/mLHgb A1c Fr Bld 0.0 %Dialated Eye Exam- Diabetic Declined Foot Exam-Diabetic Declined 12/12/2010 5:50 PM GLYCOHEMOGLOBIN A1C 5.70 %WB C 6.9 RBC 4.20 HGB 13.60 g/dLHCT 40.40 %MCV 96.0 fLMCH 32.40 pgMCHC 33.70 g/dLRDW CV 12.40 %MPV 9.90 fLPLT 243 %NEUT 62.10 %%LYMP 24.20 %%MONO 7.50 %%EOS 5.50 %%BASO 0.70 %#NEUT 4.29 #LYMP 1.67 #MONO 0.52 #EOS 0.38 #BASO 0.05 GLUCOSE 103.0 mg/dLSODIUM 142.0 mmol/LPOTASSIUM 3.80 mmol/LCHLORIDE 106.0 mmol/LCO2 25.0 mmol/LBUN 12.0 mg/dLCREATININE 0.80 mg/dLSGOT/AST 12.0 IU/LSGPT/ALT 6.0 IU/LALK PHOS 64.0 IU/LTOTAL PROTEIN 6.50 g/dLALBUMIN 4.10 g/dLTOTAL BILI 0.30 mg/dLCALCIUM 9.40 mg/dLeGFR >60 mL/min/1.73 m2 04/13/2011 7:30 AM WBC 8.3 RBC 3.33 HGB 10.70 g /dLHCT 34.50 %MCV 104.0 fLMCH 32.10 pgMCHC 31.0 g/dLRDW CV 15.60 %MPV 9.50 fLPLT 573 %NEUT 74.40 %%LYMP 16.40 %%MONO 7.30 %%EOS 1.40 %%BASO 0.50 %#NEUT 6.18 #LYMP 1.36 #MONO 0.61 #EOS 0.12 #BASO 0.04 GLUCOSE 117.0 mg/dLSODIUM 138.0 mmol/LPOTASSIUM 3.80 mmol/LCHLORIDE 107.0 mmol/LCO2 22.0 mmol/LBUN 10.0 mg/dLCREATININE 0.60 mg/dLSGOT/AST 17.0 IU/LSGPT/ALT 19.0 IU/LALK PHOS 204.0 IU/LTOTAL PROTEIN 5.40 g/dLALBUMIN 3.10 g/dLTOTAL BILI 0.80 mg/dLCALCIUM 8.40 mg/dLeGFR >60 mL/min/1.73 m2 04/18/2011 11:00 AM OCC BLD STOOL NEGATIVE 04/20/2011 7:00 AM WBC 8.9 RBC 3.90 HGB 12.60 g /dLHCT 40.20 %MCV 103.0 fLMCH 32.30 pgMCHC 31.30 g/dLRDW CV 14.40 %MPV 9.90 fLPLT 499 %NEUT 77.50 %%LYMP 14.10 %%MONO 7.40 %%EOS 0.70 %%BASO 0.30 %#NEUT 6.91 #LYMP 1.26 #MONO 0.66 #EOS 0.06 #BASO 0.03 GLUCOSE 107.0 mg/dLSODIUM 140.0 mmol/LPOTASSIUM 4.70 mmol/LCHLORIDE 106.0 mmol/LCO2 23.0 mmol/LBUN 11.0 mg/dLCREATININE 0.70 mg/dLSGOT/AST 19.0 IU/LSGPT/ALT 20.0 IU/LALK PHOS 279.0 IU/LTOTAL PROTEIN 5.40 g/dLALBUMIN 3.40 g/dLTOTAL BILI 0.80 mg/dLCALCIUM 8.80 mg/dLeGFR >60 mL/min/1.73 [id number] 119.0 mg/dLCHOLESTEROL 139.0 mg/dLHDL 30.0 mg/dLLDL (CALC) 85.0 mg/dLGLYCOHEMOGLOBIN A1C 4.50 % 04/20/2011 12:49 PM OCC BLD STOOL NEGATIVE 04/20/2011 2:53 PM OCC BLD STOOL NEGATIVE 04/27/2011 6:50 AM WBC 6.0 RBC 4.06 HGB 13.10 g /dLHCT 42.10 %MCV 104.0 fLMCH 32.30 pgMCHC 31.10 g/dLRDW CV 13.70 %MPV 10.40 fLPLT 298 %NEUT 61.40 %%LYMP 26.50 %%MONO 9.20 %%EOS 2.20 %%BASO 0.70 %#NEUT 3.70 #LYMP 1.59 #MONO 0.55 #EOS 0.13 #BASO 0.04 PREALBUMIN 18.0 mg/dL 05/04/2011 6:55 AM WBC 7.6 RBC 4.16 HGB 13.40 g /dLHCT 42.10 %MCV 101.0 fLMCH 32.20 pgMCHC 31.80 g/dLRDW CV 13.10 %MPV 10.40 fLPLT 310 %NEUT 71.20 %%LYMP 19.0 %%MONO 8.0 %%EOS 1.40 %%BASO 0.40 %#NEUT 5.42 #LYMP 1.45 #MONO 0.61 #EOS 0.11 #BASO 0.03 05/11/2011 7:30 AM WBC 6.8 RBC 4.06 HGB 13.30 g /dLHCT 39.80 %MCV 98.0 fLMCH 32.80 pgMCHC 33.40 g/dLRDW CV 12.80 %MPV 10.80 fLPLT 368 %NEUT 60.30 %%LYMP 30.30 %%MONO 7.50 %%EOS 1.30 %%BASO 0.60 %#NEUT 4.08 #LYMP 2.05 #MONO 0.51 #EOS 0.09 #BASO 0.04 FERRITIN 122.0 ng/mL History Of Immunizations Name Date Admin Mfg Name Mfg Code Trade Name Lot# Route Inj Vis Given Vis Pub CVX Tdap 09/20/2009 [employer] SKB BOOSTRIX [id number] Intramuscular Left Deltoid 09/20/2009 05/24/2008 999 History [...] Cancer of prostate Feb 20 2015 9:12AM Payers Insurance Name Company Name Plan Name Plan Number Policy Number Michael cy Group Number Start Date Medicare Part B Medicare Of [place] [id number] Friday, 1999 [facility] [id number] 2009 History of Encounters Visit Date Visit Type Provider 02/20/2015 Office visit Jareth Marti MD 11/24/2014 Office visit Wendy Ortega TRANSITIONAL CARE NURSE 10/16/2014 Office visit Jareth Marti MD 06/12/2014 Office visit Jareth Marti MD 03/07/2012 Office visit Katlyn Michael TRANSITIONAL CARE NURSE 08/13/2011 [facility] Marcial Toledo MD 08/12/2011 [facility] Marcial Toledo MD 07/20/2011 [facility] Sangita Ibrahim MD 07/19/2011 [facility] Sangita Ibrahim MD 05/07/2011 [facility] John Montilla MD 03/30/2011 [facility] John Montilla MD 02/09/2011 Office visit George Lowete DO 12/23/2010 Office visit George Raphael DO 12/12/2010 Office visit Katlyn Michael TRANSITIONAL CARE NURSE 11/10/2010 Office visit George Raphael DO 07/16/2010 [...]
--- OUTSIDE RECORDS SUMMARY | 2019-11-18 22:32 | XMS REPORT ---
Author Author Meeta Marti Organization [facility] Address [address] [place], [place] [id number] Care Team Providers Care Engineer Byproduct Name Role Phone Jareth Marti PCP Unavailable [...] Reviewed 03/07/2012 12:00 AM Decadron 1 mg [facility]#[id number] (Donavon) Reviewed 03/07/2012 12:00 AM Depo-Medrol 80 mg [facility]#[id number]-[id number] te Reviewed 11/27/2009 12:00 AM ELECTROCARDIOGRAM COMPLETE [...] Vis Given Vis Pub CVX Tdap 09/20/2009 [employer] SKB BOOSTRIX [id number] Intramuscular Left Deltoid 09/20/2009 05/24/2008 999 History [...] Adenocarcinoma of prostate Mar 10 2017 8:13AM Payers Insurance Name Company Name Plan Name Plan Number Policy Number Michael cy Group Number Start Date Medicare Part B Medicare [place] [id number] Friday, 2000 [facility] [id number] 2009 History of Encounters Visit Date Visit Type Provider 03/10/2017 Office visit Jareth Marti MD 11/05/2016 Office visit V Natasha Marti MD 07/06/2016 Office visit V Natasha Marti MD 02/28/2016 Office visit Jareth Marti MD 10/22/2015 Office visit Jareth Marti MD 06/21/2015 Office visit Jareth Marti MD 03/11/2015 [facility] John Montilla MD 02/20/2015 Office visit Jareth Marti MD 11/24/2014 Office visit Wendy Ortega LOG SCALER 10/16/2014 Office visit Jareth Marti MD 06/12/2014 Office visit Jareth Marti MD 03/07/2012 Office visit Katlyn Michael LOG SCALER 08/13/2011 [facility] Marcial Toledo MD 08/12/2011 [facility] Marcial Toledo MD 07/20/2011 [facility] Sangita Ibrahim MD 07/19/2011 [facility] Sangita Ibrahim MD 05/07/2011 [facility] John Montilla MD 03/30/2011 [facility] John Montilla MD 02/09/2011 Office visit George Raphael DO 12/23/2010 Office visit George Raphael DO 12/12/2010 Office visit Katlyn Michael LOG SCALER 11/10/2010 Office visit George Donavon DO 07/16/2010 [...]
--- OUTSIDE RECORDS SUMMARY | 2019-11-18 22:32 | XMS REPORT ---
Author Author Meeta Marti Organization [facility] Address [address] [place], [place] [id number] Care Team Providers Care Rn Surgical Pcu Name Role Phone Jareth Marti PCP Unavailable [...] Reviewed 03/07/2012 12:00 AM Decadron 1 mg [facility]#[id number] (Donavon) Reviewed 03/07/2012 12:00 AM Depo-Medrol 80 mg [facility]#[id number]-Cktsur te Reviewed 11/27/2009 12:00 AM ELECTROCARDIOGRAM COMPLETE [...] BILI 0.80 mg/dLCALCIUM 8.80 mg/dLeGFR >60 mL/min/1.73 [id number] 119.0 mg/dLCHOLESTEROL 139.0 mg/dLHDL 30.0 mg/dLLDL (CALC) [...] Vis Given Vis Pub CVX Tdap 09/20/2009 [employer] SKB BOOSTRIX [id number] Intramuscular Left Deltoid 09/20/2009 05/24/2008 999 History [...] Adenocarcinoma of prostate Feb 28 2016 8:52AM Payers Insurance Name Company Name Plan Name Plan Number Policy Number Michael cy Group Number Start Date Medicare Part B Medicare [place] [id number] Friday, 2000 [employer] [facility] [id number] 2009 History of Encounters Visit Date Visit Type Provider 02/28/2016 Office visit V Natasha Marti MD 10/22/2015 Office visit V Natasha Marti MD 06/21/2015 Office visit Jareth Marti MD 03/11/2015 [facility] John Montilla MD 02/20/2015 Office visit V Natasha Marti MD 11/24/2014 Office visit Wendy Ortega MARINE CARGO SURVEYOR 10/16/2014 Office visit V Natasha Marti MD 06/12/2014 Office visit Jareth Marti MD 03/07/2012 Office visit Katlyn Michael MARINE CARGO SURVEYOR 08/13/2011 [facility] Marcial Toledo MD 08/12/2011 [facility] Marcial Toledo MD 07/20/2011 [facility] Sangita Ibrahim MD 07/19/2011 [facility] Sangita Ibrahim MD 05/07/2011 [facility] John Montilla MD 03/30/2011 [facility] John Montilla MD 02/09/2011 Office visit George Raphael DO 12/23/2010 Office visit George Raphael DO 12/12/2010 Office visit Katlyn Michael MARINE CARGO SURVEYOR 11/10/2010 Office visit George Raphael DO 07/16/2010 [...]
--- OUTSIDE RECORDS SUMMARY | 2019-11-18 22:32 | XMS REPORT ---
Author Author Meeta Marti Organization [facility] Address [address] [place], [place] [id number] Care Team Providers Care Composite Layup Worker Name Role Phone Jareth Marti PCP Unavailable [...] 03/07/2012 12:00 AM Decadron 1 mg [facility]#[id number] (Donavon) Reviewed 03/07/2012 12:00 AM Depo-Medrol 80 mg [facility]#[id number]-Bbbuus te Reviewed 11/27/2009 12:00 AM ELECTROCARDIOGRAM COMPLETE [...] Declined Foot Exam-Diabetic Declined 12/12/2010 5:50 PM WBC 6.9 RBC 4.20 HGB 13.60 g /dLHCT 40.40 %MCV 96.0 fLMCH 32.40 pgMCHC 33.70 [...] BILI 0.80 mg/dLCALCIUM 8.80 mg/dLeGFR >60 mL/min/1.73 [id number] 119.0 mg/dLCHOLESTEROL 139.0 mg/dLHDL 30.0 mg/dLLDL (CALC) 85.0 mg/dL 04/20/2011 12:49 PM OCC BLD STOOL NEGATIVE [...] Vis Given Vis Pub CVX Tdap 09/20/2009 [employer] SKB BOOSTRIX [id number] Intramuscular Left Deltoid 09/20/2009 05/24/2008 999 History [...] Adenocarcinoma of prostate Jul 06 2016 1:29PM Payers Insurance Name Company Name Plan Name Plan Number Policy Number Michael cy Group Number Start Date Medicare Part B Medicare [place] [id number] Friday, 2000 [id number] 2009 History of Encounters Visit Date Visit Type Provider 07/06/2016 Office visit V Natasha Marti MD 02/28/2016 Office visit V Natasha Marti MD 10/22/2015 Office visit V Natasha Marti MD 06/21/2015 Office visit V Natasha Marti MD 03/11/2015 [facility] John Montilla MD 02/20/2015 Office visit V Natasha Marti MD 11/24/2014 Office visit Wendy Ortega FURNACE REPAIR MECHANIC 10/16/2014 Office visit V Natasha Marti MD 06/12/2014 Office visit V Natasha Marti MD 03/07/2012 Office visit Katlyn Michael FURNACE REPAIR MECHANIC 08/13/2011 [facility] Marcial Toledo MD 08/12/2011 [facility] Marcial Toledo MD 07/20/2011 [facility] Sangita Ibrahim MD 07/19/2011 [facility] Sangita Ibrahim MD 05/07/2011 [facility] John Montilla MD 03/30/2011 [facility] John Montilla MD 02/09/2011 Office visit George Raphael DO 12/23/2010 Office visit George Raphael DO 12/12/2010 Office visit Katlyn Michael FURNACE REPAIR MECHANIC 11/10/2010 Office visit George Raphael DO 07/16/2010 [...]
--- OUTSIDE RECORDS SUMMARY | 2019-11-18 22:32 | XMS REPORT ---
Author Author Meeta Marti Organization [facility] Address [address] [place], [place] [phone] Care Team Providers Care Finance Mgr Name Role Phone Jareth Marti PCP Unavailable [...] Reviewed 03/07/2012 12:00 AM Decadron 1 mg [facility]#[id number] (Donavon) Reviewed 03/07/2012 12:00 AM Depo-Medrol 80 mg [facility]#[id number] te Reviewed 11/27/2009 12:00 AM ELECTROCARDIOGRAM COMPLETE [...] BILI 0.80 mg/dLCALCIUM 8.80 mg/dLeGFR >60 mL/min/1.73 [id number] 119.0 mg/dLCHOLESTEROL 139.0 mg/dLHDL 30.0 mg/dLLDL (CALC) [...] Vis Given Vis Pub CVX Tdap 09/20/2009 [email or web address] SKB BOOSTRIX [id number] Intramuscular Left Deltoid 09/20/2009 05/24/2008 999 History [...] Adenocarcinoma of prostate Jun 21 2015 8:24AM Payers Insurance Name Company Name Plan Name Plan Number Policy Number Michael cy Group Number Start Date Medicare Part B Medicare [facility] [id number] Friday, 2000 [employer] [place] [id number] 2009 History of Encounters Visit Date Visit Type Provider 06/21/2015 Office visit Jareth Marti MD 03/11/2015 Hospital John Montilla MD 02/20/2015 Office visit V Natasha Marti MD 11/24/2014 Office visit Wendy Ortega SECOND TIME WORKER 10/16/2014 Office visit Jareth Marti MD 06/12/2014 Office visit Jareth Marti MD 03/07/2012 Office visit Katlyn Michael SECOND TIME WORKER 08/13/2011 Hospital Marcial Toledo MD 08/12/2011 [facility] Marcial Toledo MD 07/20/2011 [facility] Sangita Ibrahim MD 07/19/2011 [facility] Sangita Ibrahim MD 05/07/2011 [facility] John Montilla MD 03/30/2011 [facility] John Montilla MD 02/09/2011 Office visit George Raphael DO 12/23/2010 Office visit George Raphael DO 12/12/2010 Office visit Katlyn Michael SECOND TIME WORKER 11/10/2010 Office visit George Raphael DO 07/16/2010 [...]
--- OUTSIDE RECORDS SUMMARY | 2019-11-18 22:33 | XMS REPORT | Continuity of Care Document ---
Demographics Preferred Language Unknown Marital Status Unknown [employer] Affiliation Unknown Race Unknown Ethnic Group Unknown Author Organization Unknown Address Unknown Phone Unavailable Allergies Active Description Code Type Severity Reaction Onset Reported/Identified Relationship to Patient Clinical Status Yes FENTANYL [id number] DRUG N/A DOESN'T LIKE HOW IT MAKES HIM FEEL Yes No Known Allergies [id number] N/A N/A Yes No Known Environmental Allergies [id number] N/A N/A Yes No Known Food Allergies [id number] N/A N/A Yes PHENERGAN [id number] BRANDNAME N/A CONFUSION Yes promethazine [id number] Drug Allergy Unknown N/A 11/17/2019 Medications There is no data. Problems Date Dx Coded Attending Type Code Diagnosis Diagnosed By 05/13/2017 P C61 Malign ant neoplasm of prostate 05/13/2017 S R948 Abnor mal results of function studies of other organs and systems 02/16/2018 S R296 [place]pea [place] 02/16/2018 P R531 Weakness 02/21/2018 P [id number] Fr acture of unspecified part of neck of right femur, initial encounter for closed fracture 02/21/2018 S [id number] Un specified fall, initial encounter 03/06/2018 P [id number] Fr acture of unspecified part of neck of right femur, initial encounter for closed fracture 03/06/2018 S [id number] Un specified fall, initial encounter 03/06/2018 P [id number] Fr acture of unspecified part of neck of right femur, initial encounter for closed fracture 03/06/2018 S [id number] Un specified fall, initial encounter 03/06/2018 P [id number] Fr acture of unspecified part of neck of right femur, initial encounter for closed fracture 03/06/2018 S [id number] Un specified fall, initial encounter 03/06/2018 P [id number] Fr acture of unspecified part of neck of right femur, initial encounter for closed fracture 03/06/2018 S [id number] Un specified fall, initial encounter 03/06/2018 P [id number] Fr acture of unspecified part of neck of right femur, initial encounter for closed fracture 03/06/2018 S [id number] Un specified fall, initial encounter 03/07/2018 P Q29974G Fr acture of unspecified part of neck of right femur, initial encounter for closed fracture 03/07/2018 S [id number] Un specified fall, initial encounter 03/07/2018 P E89294N Fr acture of unspecified part of neck of right femur, initial encounter for closed fracture 03/07/2018 S [id number] Un specified fall, initial encounter 08/10/2018 S R262 Diffi culty in walking, not elsewhere classified 08/10/2018 S R2689 Othe r abnormalities of gait and mobility 08/10/2018 P [id number] Ot her fracture of head and neck of right femur, subsequent encounter for closed fracture with routine healing 08/10/2018 S [id number] Un specified fall, initial encounter 04/04/2019 S R262 Diffi culty in walking, not elsewhere classified 04/04/2019 P R531 Weakness 07/06/2019 S R42 Dizzin ess and giddiness 07/06/2019 P R531 Weakness 07/06/2019 P R531 Weakness Procedures There is no data. Results Test Result Range Serum or plasma troponin i.cardiac measu rement (mass/volume) - 11/17/19 06:40 Serum or plasma troponin i.cardiac measurement (mass/v olume) 0.086 ng/mL <0.028 Capillary blood glucose measurement by g lucometer (mass/volume) - 11/17/19 11:15 Capillary blood glucose measurement by glucometer (mas s/volume) 231 mg/dL 70-110 Capillary blood glucose measurement by g lucometer (mass/volume) - 11/17/19 16:04 Capillary blood glucose measurement by glucometer (mas s/volume) 136 mg/dL 70-110 Capillary blood glucose measurement by g lucometer (mass/volume) - 11/17/19 20:20 Capillary blood glucose measurement by glucometer (mas s/volume) 157 mg/dL 70-110 Automated blood complete blood count (he mogram) panel - 11/18/19 02:54 Blood leukocytes automated count (number/volume) 5.4 10*3/uL 4.3-11.0 Blood erythrocytes automated count (number/volume) 3.50 10*6/uL 4.35-5.85 Venous blood hemoglobin measurement (mass/volume) 10.8 g/dL 13.3-17.7 Blood hematocrit (volume fraction) 33 % 40-54 Automated erythrocyte mean corpuscular volume 95 [ foz_us] 80-99 Automated erythrocyte mean corpuscular h emoglobin (mass per erythrocyte) 31 pg 25-34 Automated erythrocyte mean corpuscular h emoglobin concentration measurement (mass/volume) 32 g/dL 32-36 Automated erythrocyte distribution width ratio 13. 8 % 10.0- 14.5 Automated blood platelet count (count/volume) 234 10*3/uL 130-400 Automated blood platelet mean volume measurement 10.1 [foz_us] 7.4-10.4 PT panel in platelet poor plasma by coag ulation assay - 11/18/19 02:54 Prothrombin time (PT) in platelet poor plasma by coagu lation assay 15.8 s 12.2-14.7 INR in platelet poor plasma or blood by coagulation as say 1.2 0.8-1.4 Activated partial thromboplastin time (a PTT) in platelet poor plasma bycoagulation assay - 11/18/19 02:54 Activated partial thromboplastin time (a PTT) in platelet poor plasma bycoagulation assay 30 s 24-35 Comprehensive metabolic panel - 11/18/19 02:54 Serum or plasma sodium measurement (moles/volume) 138 mmol/L 135-145 Serum or plasma potassium measurement (moles/volume) 3.8 mmol/L 3.6-5.0 Serum or plasma chloride measurement (moles/volume) 108 mmol/L 98-107 Carbon dioxide 24 mmol/L 21-32 Serum or plasma anion gap determination (moles/volume) 6 mmol/L 5-14 Serum or plasma urea nitrogen measurement (mass/volume ) 8 mg/dL 7-18 Serum or plasma creatinine measurement (mass/volume) 0.72 mg/dL 0.60-1.30 Serum or plasma urea nitrogen/creatinine mass ratio 11 NRG Serum or plasma creatinine measurement w ith calculation of estimated glomerular filtration rate > NRG Serum or plasma glucose measurement (mass/volume) 140 mg/dL 70-105 Serum or plasma calcium measurement (mass/volume) 8.0 mg/dL 8.5-10.1 Serum or plasma total bilirubin measurement (mass/volu me) 0.5 mg/dL 0.1-1.0 Serum or plasma alkaline phosphatase armida surement (enzymatic activity/volume) 77 U/L 40-136 Serum or plasma aspartate aminotransfera se measurement (enzymatic activity/volume) 14 U/L 5-34 Serum or plasma alanine aminotransferase measurement (enzymatic activity/volume) 9 U/L 0-55 Serum or plasma protein measurement (mass/volume) 4.6 g/dL 6.4-8.2 Serum or plasma albumin measurement (mass/volume) 2.9 g/dL 3.2-4.5 CALCIUM CORRECTED 8.9 mg/dL 8.5-10.1 Serum or plasma troponin i.cardiac measu rement (mass/volume) - 11/18/19 02:54 Serum or plasma troponin i.cardiac measurement (mass/v olume) 0.121 ng/mL <0.028 Capillary blood glucose measurement by g lucometer (mass/volume) - 11/18/19 11:32 Capillary blood glucose measurement by glucometer (mas s/volume) 130 mg/dL 70-110 Encounters ACCT No. Visit Date/Time Discharge Status Pt. Type Provider Facility Loc./Unit Complaint [id number] 11/18/2019 08:57:00 Document Registration [id number] 11/16/2019 23:02:11 Document Registration [id number] 11/16/2019 22:55:12 Document Registration [id number] 11/07/2019 05:00:08 Document Registration [id number] 11/07/2019 04:54:02 Document Registration [id number] 07/08/2019 19:44:54 Document Registration [id number] 07/08/2019 19:36:17 Document Registration [id number] 07/06/2019 16:47:48 Document Registration [id number] 07/06/2019 16:06:09 Document Registration [id number] 05/25/2019 10:58:48 Document Registration [id number] 05/17/2019 07:00:02 Document Registration [id number] 05/17/2019 06:39:20 Document Registration [id number] 01/24/2019 15:01:48 Document Registration [id number] 12/23/2018 14:58:02 Document Registration [id number] 12/22/2018 20:31:17 Document Registration [id number] 11/24/2018 09:49:25 Document Registration [id number] 11/16/2018 19:32:15 Document Registration [id number] 11/16/2018 19:26:34 Document Registration [id number] 06/15/2018 10:57:56 Document Registration [id number] 05/18/2018 09:11:57 Document Registration [id number] 05/02/2018 14:47:22 Document Registration [id number] 03/08/2018 13:05:38 Document Registration [id number] 03/05/2018 08:18:18 Document Registration [id number] 03/03/2018 11:40:34 Document Registration [id number] 03/02/2018 21:23:41 Document Registration [id number] 02/20/2018 14:22:14 Document Registration [id number] 02/20/2018 13:12:15 Document Registration [id number] 02/14/2018 07:38:35 Document Registration [id number] 12/01/2017 13:13:59 Document Registration [id number] 08/19/2017 08:32:41 Document Registration [id number] 05/19/2017 08:48:13 Document Registration [id number] 05/04/2017 15:08:08 Document Registration [id number] 04/26/2017 07:17:53 Document Registration [id number] 11/17/2019 04:44:[address] Inpatient MU MILLER, FORTUNATO Dickson [facility] ICU CHEST PAIN [id number] 11/01/2019 15:29:22 11/01/2019 23:59: 59 CLS Outpatient Tutu Reese V [id number] 09/19/2019 16:44:41 09/19/2019 23:59: 59 CLS Outpatient Hedy Gregorio [id number] 07/31/2019 15:23:09 07/31/2019 23:59: 59 CLS Outpatient Tammie Lazcano [id number] 07/27/2019 12:53:58 07/27/2019 23:59: 59 CLS Outpatient John Montilla [id number] 07/27/2019 10:44:11 07/27/2019 23:59: 59 CLS Outpatient John Montilla [id number] 07/13/2019 15:33:28 07/13/2019 23:59: 59 CLS Outpatient Gregorio Knott [id number] 06/29/2019 10:18:59 06/29/2019 23:59: 59 CLS Outpatient John Montilla [id number] 02/08/2019 12:33:25 02/08/2019 23:59: 59 CLS Outpatient John Montilla Marcial [id number] 12/23/2018 14:01:58 12/23/2018 23:59: 59 CLS Outpatient Gregorio Knott [id number] 06/20/2018 14:09:02 06/20/2018 23:59: 59 CLS Outpatient Gregorio Knott [id number] 05/13/2018 15:23:32 05/13/2018 23:59: 59 CLS Outpatient John Montilla [id number] 03/14/2018 10:58:21 03/14/2018 23:59: 59 CLS Outpatient Gregorio Knott [id number] 03/04/2018 10:52:40 03/04/2018 23:59: 59 CLS Outpatient Tutu Reese V [id number] 03/02/2018 12:49:20 03/02/2018 23:59: 59 CLS Outpatient Skip Burns [id number] 11/10/2017 09:19:05 11/10/2017 23:59: 59 CLS Outpatient Kaia, V S [id number] 07/13/2017 08:50:43 07/13/2017 23:59: 59 CLS Outpatient Kaia, V S [id number] 03/10/2017 08:52:37 03/10/2017 23:59: 59 CLS Outpatient Kaia, V S [id number] 11/05/2016 09:24:23 11/05/2016 23:59: 59 CLS Outpatient Kaia, V S [id number] 07/06/2016 12:18:26 07/06/2016 23:59: 59 CLS Outpatient Kaia, V S [id number] 02/28/2016 09:24:44 02/28/2016 23:59: 59 CLS Outpatient Kaia, V S [id number] 10/22/2015 10:10:12 10/22/2015 23:59: 59 CLS Outpatient Kaia, V S [id number] 06/21/2015 09:03:15 06/21/2015 23:59: 59 CLS Outpatient Kaia, V S [id number] 05/06/2015 07:52:32 05/06/2015 23:59: 59 CLS Outpatient John Montilla [id number] 04/15/2015 21:57:52 04/15/2015 23:59: 59 CLS Outpatient Kaia, V S [id number] 11/28/2014 18:55:05 11/28/2014 23:59: 59 CLS Outpatient Wendy Ortega [id number] 10/16/2014 09:07:37 10/16/2014 23:59: 59 ALICE Outpatient Jareth Marti [id number] 06/12/2014 10:54:12 06/12/2014 23:59: 59 ALICE Outpatient Jareth Marti
--- OUTSIDE RECORDS SUMMARY | 2019-11-18 22:33 | XMS REPORT | CCD ---
Author Meeta Hodges Organization Unknown Address [address] [place], [place] [address] Care Team Providers Care Firefighter Type One Name Role Phone FLINT ER, WALE DO Attphys FLINT ER, WALE DO Prisurg Vital Signs Unknown. Allergies Allergy Code Allergy Type Reaction Status No Known Allergies 0 No known allergies Active Procedures Unknown. History of Immunizations Unknown. Problems Problem Code Start Date Resolved Date Sta tus DECUBITUS ULCER 551502100 07/17/2011 Active Results Unknown. Medications Unknown. Medications Administered Unknown. 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 Discharge Instructions You were admitted to [facility] on 01/26/2014 with a principle diagnosis of BEST'S PALSY. You were discharged from [facility] on 01/26/2014. Should you have any questions prior to discharge, please contact a member of your healthcare team. If you have left the hospital and have any questions, please contact your primary care physician. Chief Complaint and Reason For Visit Chief Complaint Date of Onset FACIAL DROOP SLURRED SPEECH Function Status Unknown. Referral/Transition of Care Unknown.
--- OUTSIDE RECORDS SUMMARY | 2019-11-18 22:33 | XMS REPORT | CCD ---
Author Meeta Dillon Organization Unknown Address [address] [place], [place] [id number] Care Team Providers Care Mold Press Operator Name Role Phone KEN ER, WALE DO Attphys [place] ER, WALE DO Prisurg Vital Signs Unknown. Allergies Allergy Code Allergy Type Reaction Status No Known Allergies 0 No known allergies Active Procedures Unknown. History of Immunizations Unknown. Problems Problem Code Start Date Resolved Date Sta tus DECUBITUS ULCER 358101618 07/17/2011 Active Results CBC W/ AUTO DIFF (RFLX MAN DIFF IF IND) Test Name Code Test Result Test Units Ingris t Date/Time WBC 17074-6 6.9000 TH/CMM 01/25/2014 18: 55 RBC 789-8 4.1600 ML/CMM 01/25/2014 18:5 5 HGB 718-7 13.7000 G/DL 01/25/2014 18: 55 HCT 4544-3 39.3000 % 01/25/2014 18: 55 MCV 95.0000 FL 01/25/2014 18: 55 MCH 32.9000 PG 01/25/2014 18: 55 MCHC 34.9000 G/DL 01/25/2014 18: 55 RDW SD 43.0000 FL 01/25/2014 18: 55 RDW CV 12.5000 % 01/25/2014 18: 55 MPV 10.0000 FL 01/25/2014 18: 55 PLT 777-3 238.0000 TH/CMM 01/25/2014 18 :55 NRBC# 0.0000 TH/CMM 01/25/2014 18:5 5 NRBC% 0.0000 /100WBC 01/25/2014 18: 55 %NEUT 53.2000 % 01/25/2014 18: 55 %LYMP 37.2000 % 01/25/2014 18: 55 %MONO 6.9000 % 01/25/2014 18:5 5 %EOS 2.3000 % 01/25/2014 18:5 5 %BASO 0.4000 % 01/25/2014 18:5 5 #NEUT 3.6800 TH/CMM 01/25/2014 18:5 5 #LYMP 2.5800 TH/CMM 01/25/2014 18:5 5 #MONO 0.4800 TH/CMM 01/25/2014 18:5 5 #EOS 0.1600 TH/CMM 01/25/2014 18:5 5 #BASO 0.0300 TH/CMM 01/25/2014 18:5 5 MANUAL DIFF NOT IND N/A 4 18:55 PROTIME Test Name Code Test Result Test Units Ingris t Date/Time PROTIME 95612-4 10.5000 SEC 01/25/2014 1 8:55 INR 1.0000 01/25/2014 18:5 5 URINALYSIS C&S IF IND Test Name Code Test Result Test Units Ingris t Date/Time COLOR YELLOW N/A 01/25/2014 20:2 0 APPEARANCE CLEAR N/A 01/25/2014 20:20 SPEC GRAV >=1.030 N/A 01/25/2014 20:20 pH 5.5 N/A 01/25/2014 20:2 0 PROTEIN NEGATIVE N/A 01/25/2014 2 0:20 GLUCOSE NEGATIVE N/A 01/25/2014 2 0:20 KETONE TRACE N/A 01/25/2014 20:2 0 BILIRUBIN SMALL N/A 01/25/2014 2 0:20 BLOOD NEGATIVE N/A 01/25/2014 20 :20 NITRITE NEGATIVE N/A 01/25/2014 2 0:20 LEUK SCREEN NEGATIVE N/A 01/26/20 14 20:20 WBC/HPF RARE N/A 01/25/2014 20: 20 RBC/HPF NEGATIVE N/A 01/25/2014 2 0:20 CASTS/LPF NEGATIVE N/A 01/25/2014 20:20 CRYSTALS NEGATIVE N/A 01/25/2014 20:20 MUCOUS THRDS 3+++ N/A 4 20:20 BACTERIA NEGATIVE N/A 01/25/2014 20:20 EPITH CELLS 1+ SQUAMOUS N/A 01/25 20:20 TRICHOMONAS NEGATIVE N/A 01/26/20 14 20:20 YEAST NEGATIVE N/A 01/25/2014 20 :20 CULT SET UP? NO N/A 4 20:20 COMPREHENSIVE METABOLIC PANEL Test Name Code Test Result Test Units Ingris t Date/Time GLUCOSE 2345-7 190.0000 MG/DL 01/25/2014 1 8:55 SODIUM 2951-2 140.0000 MEQ/L 01/25/2014 18 :55 POTASSIUM 2823-3 3.9000 MEQ/L 01/25/2014 1 8:55 CHLORIDE 2075-0 107.0000 MEQ/L 01/25/2014 18:55 CO2 2028-9 23.0000 MEQ/L 01/25/2014 18: 55 BUN 3094-0 12.0000 MG/DL 01/25/2014 18: 55 CREATININE 2160-0 0.9000 MG/DL 01/25/2014 18:55 SGOT/AST 1920-8 10.0000 IU/L 01/25/2014 1 8:55 SGPT/ALT 1742-6 8.0000 IU/L 01/25/2014 18 :55 ALK PHOS 6768-6 77.0000 IU/L 01/25/2014 1 8:55 TOTAL PROTEIN 2885-2 6.0000 G/DL 01/26/20 14 18:55 ALBUMIN 1751-7 3.8000 G/DL 01/25/2014 18: 55 TOTAL BILI 1975-2 0.5000 MG/DL 01/25/2014 18:55 CALCIUM 52686-8 9.1000 MG/DL 01/25/2014 18 :54 AGE 78.0000 yrs 01/25/2014 18: 55 GFR NonAA 81.0000 01/25/2014 18:55 GFR AA 98.0000 01/25/2014 18: 55 eGFR 60.0000 mL/min/1.7 01/25/2014 18:55 eGFR AA* 60.0000 mL/min/1.7 01/26/20 14 18:55 TROPONIN-I ADV Test Name Code Test Result Test Units Ingris t Date/[place] [address]-5 0.0400 ng/mL 014 18:55 Medications Unknown. Medications Administered Unknown. Encounters Unknown. Social History Smoking Status Code Start Date End Date Never smoker [id number] Patient Decision Aids Unknown. Instructions You were admitted to [facility] on 01/25/2014. You were discharged from [facility] on 01/25/2014. Should you have any questions prior to discharge, please contact a member of your healthcare team. If you have left the hospital and have any questions, please contact your primary care physician. Chief Complaint and Reason For Visit Chief Complaint Date of Onset WEAKNESS FACIAL DROPPINESS LIGHT HEADED Function Status Unknown. Referral/Transition of Care Unknown.
--- OUTSIDE RECORDS SUMMARY | 2019-11-18 22:33 | XMS REPORT ---
Author Author Meeta Marti Organization [facility] Address [address] [place], [place] [phone] Care Team Providers Care Security Administrator Name Role Phone Jareth Marti PCP Unavailable [...] 03/07/2012 12:00 AM Decadron 1 mg [facility]#[id number] (Donavon) Reviewed 03/07/2012 12:00 AM Depo-Medrol 80 mg [facility]#[id number]-Ydixnj te Reviewed 11/27/2009 12:00 AM ELECTROCARDIOGRAM COMPLETE [...] Vis Given Vis Pub CVX Tdap 09/20/2009 [employer] SKB BOOSTRIX [id number] Intramuscular Left Deltoid 09/20/2009 05/24/2008 999 History [...] Adenocarcinoma of prostate Nov 05 2016 9:12AM Payers Insurance Name Company Name Plan Name Plan Number Policy Number Michael cy Group Number Start Date Medicare Part B Medicare Of [place] [id number] Friday, 1999 [facility] [id number] 2009 History of Encounters Visit Date Visit Type Provider 11/05/2016 Office visit Jareth Marti MD 07/06/2016 Office visit Jareth Marti MD 02/28/2016 Office visit Jareth Marti MD 10/22/2015 Office visit Jareth Marti MD 06/21/2015 Office visit Jareth Marti MD 03/11/2015 [facility] John Montilla MD 02/20/2015 Office visit Jareth Marti MD 11/24/2014 Office visit Wendy Ortega ACCOUNT LIAISON 10/16/2014 Office visit Jareth Marti MD 06/12/2014 Office visit Jareth Marti MD 03/07/2012 Office visit Katlyn Michael ACCOUNT LIAISON 08/13/2011 [facility] Marcial Toledo MD 08/12/2011 [facility] Marcial Toledo MD 07/20/2011 [facility] Sangita Ibrahim MD 07/19/2011 [facility] Sangita Ibrahim MD 05/07/2011 [facility] John Montilla MD 03/30/2011 [facility] John Montilla MD 02/09/2011 Office visit George Raphael DO 12/23/2010 Office visit George Raphael DO 12/12/2010 Office visit Ktalyn Michael APRN 11/10/2010 Office visit George Raphael [...]
--- OUTSIDE RECORDS SUMMARY | 2019-11-18 22:33 | XMS REPORT ---
Author Author Meeta Marti Organization [facility] Address [address] [place], [place] [address] Care Team Providers Care Fruit Or Nut Farmworker Name Role Phone Jareth Marti PCP Unavailable [...] Reviewed 03/07/2012 12:00 AM Decadron 1 mg [facility]#[id number] (Donavon) Reviewed 03/07/2012 12:00 AM Depo-Medrol 80 mg [facility]#[id number]-Wubliu te Reviewed 11/27/2009 12:00 AM ELECTROCARDIOGRAM COMPLETE [...] Vis Given Vis Pub CVX Tdap 09/20/2009 [employer] SKB BOOSTRIX [id number] Intramuscular Left Deltoid 09/20/2009 05/24/2008 999 History [...] Adenocarcinoma of prostate Nov 10 2017 9:51AM Payers Insurance Name Company Name Plan Name Plan Number Policy Number Michael cy Group Number Start Date Medicare Part B Medicare [place] [id number] Friday, 2000 [facility] [id number] 2009 History of Encounters Visit Date Visit Type Provider 11/10/2017 Office visit V Natasha Marti MD [...] Marti MD 11/24/2014 Office visit Wendy Ortega BB SHOT PACKER 10/16/2014 Office visit V Natasha Marti MD 06/12/2014 Office visit V Natasha Marti MD 03/07/2012 Office visit Katlyn Michael BB SHOT PACKER 08/13/2011 Hospital Marcial Toeldo MD 08/12/2011 Hospital Marcial Toledo MD 07/20/2011 [facility] Sangita Ibrahim MD 07/19/2011 [facility] Sangita Ibrahim MD 05/07/2011 Hospital John Montilla MD 03/30/2011 Hospital John Montilla MD 02/09/2011 Office visit [...]
--- OUTSIDE RECORDS SUMMARY | 2019-11-18 22:33 | XMS REPORT ---
Author Author Meeta Marti Organization [facility] Address [address] [place], [place] [address] Care Team Providers Care Wholesale Diamond Broker Name Role Phone Jareth Marti PCP Unavailable [...] Reviewed 03/07/2012 12:00 AM Decadron 1 mg [facility]#[id number] (Donavon) Reviewed 03/07/2012 12:00 AM Depo-Medrol 80 mg [facility]#[id number]-Gctufn te Reviewed 11/27/2009 12:00 AM ELECTROCARDIOGRAM COMPLETE [...] BILI 0.80 mg/dLCALCIUM 8.80 mg/dLeGFR >60 mL/min/1.73 [id number] 119.0 mg/dLCHOLESTEROL 139.0 mg/dLHDL 30.0 mg/dLLDL (CALC) [...] Given Vis Pub CVX Tdap 09/20/2009 [employer] SKB BOOSTRIX [id number] Intramuscular Left Deltoid 09/20/2009 05/24/2008 999 History [...] Adenocarcinoma of prostate Oct 22 2015 9:37AM Payers Insurance Name Company Name Plan Name Plan Number Policy Number Michael cy Group Number Start Date Medicare Part B Medicare [place] [id number] Friday, 2000 [id number] 2009 History of Encounters Visit Date Visit Type Provider 10/22/2015 Office visit V Natasha Marti MD 06/21/2015 Office visit Jareth Marti MD 03/11/2015 Hospital John Montilla MD 02/20/2015 Office visit Jareth Marti MD 11/24/2014 Office visit Wendy Ortega COUPON AND BOND COLLECTION CLERK 10/16/2014 Office visit Jareth Marti MD 06/12/2014 Office visit Jareth Marti MD 03/07/2012 Office visit Katlyn Michael COUPON AND BOND COLLECTION CLERK 08/13/2011 [facility] Marcial Toledo MD 08/12/2011 [facility] Marcial Toledo MD 07/20/2011 [facility] Sangita Ibrahim MD 07/19/2011 [facility] Sangita Ibrahim MD 05/07/2011 [facility] John Montilla MD 03/30/2011 [facility] John Montilla MD 02/09/2011 Office visit George Raphael DO 12/23/2010 Office visit George Raphael DO 12/12/2010 Office visit Katlyn Michael COUPON AND BOND COLLECTION CLERK 11/10/2010 Office visit George Raphael DO 07/16/2010 Office visit George Donavon DO 02/10/2010 Office visit George Donavon DO 11/27/2009 Office visit Carmen MALIK 11/27/2009 Laboratory Nicholas Munguia MD 10/14/2009 Office visit George Raphael DO 09/20/2009 Office visit George Donavon DO 09/02/2009 Office visit George Donavon DO 05/17/2009 Nurse visit Georeg Donavon DO 05/03/2009 Office visit George Raphael DO 05/01/2009 Laboratory Nicholas Munguia MD
== END 2019-11-18 11:45 | disposition short-term general hospital (02) | DRG 281 ==
LOC: ICU 04:44
PROVIDERS: ADMIT Internal Medicine; ATTEND Internal Medicine
PROC: 4A023N7 Measurement of Cardiac Sampling and Pressure, Left Heart, Percutaneous Approach (ICD-10-PCS; principal; 2019-11-18)
PROC: B2111ZZ Fluoroscopy of Multiple Coronary Arteries using Low Osmolar Contrast (ICD-10-PCS; 2019-11-18)
PROC: B2151ZZ Fluoroscopy of Left Heart using Low Osmolar Contrast (ICD-10-PCS; 2019-11-18)
DX: I21.4 Non-ST elevation (NSTEMI) myocardial infarction (principal); I25.110 Atherosclerotic heart disease of native coronary artery with unstable angina pectoris; I11.0 Hypertensive heart disease with heart failure; I50.22 Chronic systolic (congestive) heart failure; I25.5 Ischemic cardiomyopathy; I48.0 Paroxysmal atrial fibrillation; R79.89 Other specified abnormal findings of blood chemistry; E78.5 Hyperlipidemia, unspecified; E11.9 Type 2 diabetes mellitus without complications; E03.9 Hypothyroidism, unspecified; Z66 Do not resuscitate; K21.9 Gastro-esophageal reflux disease without esophagitis; M81.0 Age-related osteoporosis without current pathological fracture; Z79.84 Long term (current) use of oral hypoglycemic drugs
CPT/HCPCS: 36415; 80053; 82962; 84484; 85027; 85610; 85730; 93005; 93306; 93458